=== PATIENT | female | born 1950 | race African-American/Black ===

== ENCOUNTER 2016-05-24 07:12 | Day surgery (SDC) | payer OTHER ==
[2016-05-21 13:41] VITALS: BMI 47.0
[2016-05-24] MEDS ORDERED: PROPOFOL 20 ML ONE (07:45)
[2016-05-24] MEDS ORDERED: LIDOCAINE HCL/PF 1% SDV 5ML VIAL ONE (07:45)
[2016-05-24 09:03] VITALS: TEMP 98.2
[2016-05-24 11:50] VITALS: BP 139/66; PULSE 53
== END 2016-05-24 09:40 | disposition home or self-care (01) ==
LOC: JASU-ENDO 07:12
PROVIDERS: ATTEND Internal Medicine Gastroenterology
PROC: 0DJ08ZZ Inspection of Upper Intestinal Tract, Via Natural or Artificial Opening Endoscopic (ICD-10-PCS; principal; 2016-05-24 08:00)
DX: K21.9 Gastro-esophageal reflux disease without esophagitis (principal); K44.9 Diaphragmatic hernia without obstruction or gangrene

== ENCOUNTER 2016-07-20 05:33 | Emergency (ER) | payer OTHER ==
[2016-07-20 06:28] VITALS: BP 156/93; PULSE 71; TEMP 98.3; BMI 45.6
[2016-07-20] MEDS ORDERED: PENICILLIN V POTASSIUM 500 MG TABLET PO ONE (06:51)
--- NOTE | 2016-07-20 06:51 | PDOC ---
History of Present Illness - General History Source: Patient <Chino Fan - Last Filed: 07/20/16 06:52> - General History Source: Patient Exam Limitations: No Limitations - History of Present Illness Initial Comments: 07/20/16 06:58 The patient is a 65 year old female with significant past medical history of hypertension, hyperlipidemia, CAD s/p stent (09/2014), and diabetes who presents to the ED with 2 episodes of bleeding from the mouth. Patient first noted bleeding from the mouth on Tuesday and the second episode early this morning. Patient states taking a baby aspirin daily. Denies trauma to the area. Denies smoking. The patient denies fever, chills, cough, SOB, chest pain, and palpitations. The patient denies abdominal pain, nausea, vomiting, and diarrhea. Allergies: NKDA Social History: Denies alcohol, tobacco, or drug use. Past Surgical History: s/p cardiac stent, right knee partial replacement PCP: Dr. Mile Pan Cardio: Dr. Jaycob Werner <Jenae Rehman - Last Filed: 07/20/16 06:59> - General Stated Complaint: BLEEDING GUMS Time Seen by Provider: 07/20/16 06:51 Past History - Past Medical History Anemia: Yes ( A CHILD) Asthma: Yes (NO RECENT ATTACK) Cancer: No Cardiac Disorders: Yes (CORONARY ARTERIOSCLEROSIS) CVA: No COPD: No CHF: No Dementia: No Diabetes: Yes (NIDDM) GI Disorders: Yes (GERD,H/O ADENOMATOUS POLYP OF COLON) Disorders: No HTN: Yes Hypercholesterolemia: Yes Liver Disease: No Suicide Attempt (Hx): No Seizures: No Thyroid Disease: Yes (HYPOTHYROIDISM) - Surgical History Abdominal Surgery: No Appendectomy: No Cardiac Surgery: Yes (STENT PLACED SEPTEMBER 2014) Cholecystectomy: No Lung Surgery: No Neurologic Surgery: No Orthopedic Surgery: Yes (LT KNEE REPLACEMENT) - Psycho/Social/Smoking Cessation Hx Anxiety: No Suicidal Ideation: No Smoking Status: No Smoking History: Never smoked Have you smoked in the past 12 months: No Number of Cigarettes Smoked Daily: 0 If you are a former smoker, when did you quit?: 40YRS Information on smoking cessation initiated: No Hx Alcohol Use: No Drug/Substance Use Hx: No Substance Use Type: None Hx Substance Use Treatment: No <Chino Fan - Last Filed: 07/20/16 06:52> <Jenae Rehman - Last Filed: 07/20/16 06:59> - Past Medical History Allergies/Adverse Reactions: Allergies Allergy/AdvReac Type Severity Reaction Status Date / Time No Known Drug Allergies Allergy Verified 07/20/16 06:09 Home Medications: Ambulatory Orders Lisinopril [Prinivil -] 40 mg PO DAILY #0 tablet 05/26/13 Montelukast Na [Singulair -] 10 mg PO HS #0 tablet 05/26/13 Omeprazole [Prilosec (RX)] 40 mg PO DAILY #0 capsule.dr 05/26/13 Aspirin Coated [Ecotrin -] 81 mg PO DAILY tablet.ec 10/18/14 Clopidogrel Bisulfate [Plavix -] 75 mg PO DAILY 03/06/15 Nitroglycerin Sublingual [Nitrostat -] 0.4 mg SL Q5M PRN #30 tab 03/07/15 Simvastatin [Zocor -] 20 mg PO HS 03/07/15 Metoprolol Succinate [Toprol XL -] 50 mg PO DAILY 09/03/15 Levothyroxine [Synthroid -] 150 mcg PO DAILY #30 tablet 03/20/16 Albuterol Sulfate Inhaler - [Ventolin Hfa Inhaler -] 1 - 2 inh PO QID PRN Gabapentin 100 mg PO BID 05/21/16 Isosorbide Mononitrate [Imdur -] 60 mg PO DAILY 05/21/16 Metformin HCl [Glucophage -] 500 mg PO DAILY 05/21/16 Penicillin V Potassium [Pen Vee K -] 500 mg PO TID #30 tablet 07/20/16 Review of Systems - Review of Systems Able to Perform ROS?: Yes Comments:: 07/20/16 06:59 CONSTITUTIONAL: Absent: fever, no chills, no fatigue EYES: Absent: visual changes ENT: +bleeding from the mouth Absent: ear pain, no sore throat CARDIOVASCULAR: Absent: chest pain, no palpitations RESPIRATORY: Absent: cough, no SOB GI: Absent: abdominal pain, no nausea, no vomiting, no constipation, no diarrhea GENITOURINARY: Absent: dysuria, no frequency, no hematuria MUSKULOSKELETAL: Absent: back pain, no arthralgia, no myalgia SKIN: Absent: rash NEURO: Absent: headache <Jenae Rehman - Last Filed: 07/20/16 06:59> *Physical Exam - Vital Signs Last Vital Signs Temp Pulse Resp BP Pulse Ox 98.3 F 71 20 156/93 100 07/20/16 06:07 07/20/16 06:07 07/20/16 06:07 07/20/16 06:07 07/20/16 06:07 <Chino Fan - Last Filed: 07/20/16 06:52> - Vital Signs Last Vital Signs Temp Pulse Resp BP Pulse Ox 98.3 F 71 20 156/93 100 07/20/16 06:07 07/20/16 06:07 07/20/16 06:07 07/20/16 06:07 07/20/16 06:07 - Physical Exam Comments: 07/20/16 06:59 GENERAL: Well-appearing, well-nourished. No apparent distress. HEENT: Normocephalic, atraumatic. PERRL, EOM intact. Infection of the first molar with clot in place. CARDIOVASCULAR: Normal S1, S2. Regular rate and rhythm. PULMONARY: Clear to auscultation bilaterally. ABDOMEN: Soft, non-distended, non-tender. EXTREMITIES: Normal ROM in all four extremities. No gross deformities. SKIN: Warm, dry. No rash NEUROLOGICAL: No focal neurological deficits. <Jenae Rehman - Last Filed: 07/20/16 06:59> Medical Decision Making - Medical Decision Making 07/20/16 06:54 Dr. Fan: The scribe's documentation has been prepared under my direction and personally reviewed by me in its entirery. I confirm that the note above accurately reflects all work, treatment, procedures, and medical decision making performed by me. <Chino Fan - Last Filed: 07/20/16 06:52> *DC/Admit/Observation/Transfer - Discharge Dispostion Admit: No <Chino Fan - Last Filed: 07/20/16 06:52> - Attestations Scribe Attestion: 07/20/16 06:59 Documentation prepared by Jenae Rehman, acting as special forces medical sergeant for Chino Fan MD <Jenae Rehman - Last Filed: 07/20/16 06:59> Diagnosis at time of Disposition: Dental caries - Discharge Dispostion Disposition: HOME Condition at time of disposition: Stable - Prescriptions Prescriptions: Penicillin V Potassium [Pen Vee K -] 500 mg PO TID #30 tablet - Referrals Referrals: Jay Pan [Primary Care Provider] - - Patient Instructions Printed Discharge Instructions: DI for Tooth Decay Additional Instructions: take medication as directed. use warm salt water to maintain tooth clean. Follow up with your dentist
== END 2016-07-20 07:07 | disposition home or self-care (01) ==
LOC: JER 05:33
DX: K02.9 Dental caries, unspecified (principal); I25.10 Atherosclerotic heart disease of native coronary artery without angina pectoris; I10 Essential (primary) hypertension; Z95.5 Presence of coronary angioplasty implant and graft; E78.00 Pure hypercholesterolemia, unspecified; E03.9 Hypothyroidism, unspecified
CPT/HCPCS: 99281-25

== ENCOUNTER 2017-01-18 12:06 | Observation (INO) | payer OTHER ==
[2017-01-18 12:20] VITALS: BMI 44.1
--- NOTE | 2017-01-18 12:47 | PDOC ---
History of Present Illness - General History Source: Patient Exam Limitations: No Limitations - History of Present Illness Initial Comments: 01/18/17 13:55 66 y/o F with a PMHx of CAD, NIDDM, GERD, HTN, HLD, hypothyroidism, polyps presents to the ED with sharp, sudden onset left sided chest pain today while at a . Patient reports the pain radiated to her back and to her left arm. Patient reports associated intermittent positional SOB. Patient states the SOB is better with sitting up and worsened while lying back. Patient reports current mild chest pain. Patient also reports that her last BM was on Tuesday. Denies fever, chills. Denies N/V/D. Denies headache, dizziness. <Shelley Lua - Last Filed: 01/18/17 13:57> <Maia Robison - Last Filed: 01/21/17 09:53> - General Chief Complaint: Chest Pain Stated Complaint: CHEST PAIN Time Seen by Provider: 01/18/17 12:30 Past History <Shelley Lua - Last Filed: 01/18/17 13:57> - Past Medical History Anemia: Yes ( A CHILD) Asthma: Yes (NO RECENT ATTACK) Cancer: No Cardiac Disorders: Yes (CORONARY ARTERIOSCLEROSIS) CVA: No COPD: No CHF: No Dementia: No Diabetes: Yes (NIDDM) GI Disorders: Yes (GERD,H/O ADENOMATOUS POLYP OF COLON) Disorders: No HTN: Yes Hypercholesterolemia: Yes Liver Disease: No Seizures: No Thyroid Disease: Yes (HYPOTHYROIDISM) - Surgical History Abdominal Surgery: No Appendectomy: No Cardiac Surgery: Yes (STENT PLACED SEPTEMBER 2014) Cholecystectomy: No Lung Surgery: No Neurologic Surgery: No Orthopedic Surgery: Yes (LT KNEE REPLACEMENT) - Suicide/Smoking/Psychosocial Hx Smoking Status: No Smoking History: Never smoked Have you smoked in the past 12 months: No Number of Cigarettes Smoked Daily: 0 If you are a former smoker, when did you quit?: 40YRS Hx Alcohol Use: No Drug/Substance Use Hx: No Substance Use Type: None Hx Substance Use Treatment: No <Maia Robison - Last Filed: 01/21/17 09:53> - Past Medical History Allergies/Adverse Reactions: Allergies Allergy/AdvReac Type Severity Reaction Status Date / Time No Known Drug Allergies Allergy Verified 01/18/17 12:16 Home Medications: Ambulatory Orders Lisinopril [Prinivil -] 40 mg PO DAILY #0 tablet 05/26/13 Montelukast Na [Singulair -] 10 mg PO HS #0 tablet 05/26/13 Omeprazole [Prilosec (RX)] 40 mg PO DAILY #0 capsule. 05/26/13 Aspirin Coated [Ecotrin -] 81 mg PO DAILY tablet.ec 10/18/14 Clopidogrel Bisulfate [Plavix -] 75 mg PO DAILY 03/06/15 Nitroglycerin Sublingual [Nitrostat -] 0.4 mg SL Q5M PRN #30 tab 03/07/15 Simvastatin [Zocor -] 20 mg PO HS 03/07/15 Metoprolol Succinate [Toprol XL -] 50 mg PO DAILY 09/03/15 Levothyroxine [Synthroid -] 150 mcg PO DAILY #30 tablet 03/20/16 Albuterol Sulfate Inhaler - [Ventolin HFA Inhaler -] 1 - 2 inh PO QID PRN Gabapentin 300 mg PO BID 05/21/16 Isosorbide Mononitrate [Imdur -] 60 mg PO DAILY 05/21/16 Ranolazine [Ranexa] 500 mg PO BID 01/18/17 Heparin - 5,000 unit SQ TID vial 01/20/17 Insulin Sliding Scale [Novolog Vial Sliding Scale -] 1 vial SQ ACHS units 01/20 Nitroglycerin Patch [Nitro-Dur Patch -] 0.4 mg TD DAILY #30 tab 01/20/17 Review of Systems - Review of Systems Able to Perform ROS?: Yes Comments:: 01/18/17 13:55 GENERAL/CONSTITUTIONAL: No fever or chills. No weakness. HEAD, EYES, EARS, NOSE AND THROAT: No change in vision. No ear pain or discharge. No sore throat. CARDIOVASCULAR: (+) chest pain, shortness of breath. RESPIRATORY: No cough, wheezing, or hemoptysis. GASTROINTESTINAL: No nausea, vomiting, diarrhea or constipation. GENITOURINARY: No dysuria, frequency, or change in urination. MUSCULOSKELETAL: (+) left arm pain, back pain. No neck pain. SKIN: No rash NEUROLOGIC: No headache, vertigo, loss of consciousness, or change in strength/ sensation. ENDOCRINE: No increased thirst. No abnormal weight change. HEMATOLOGIC/LYMPHATIC: No anemia, easy bleeding, or history of blood clots. ALLERGIC/IMMUNOLOGIC: No hives or skin allergy. <Leann Luaobjenae Alonso - Last Filed: 01/18/17 13:57> *Physical Exam - Vital Signs Last Vital Signs Temp Pulse Resp BP Pulse Ox 97.4 F L 64 24 145/65 100 01/18/17 12:16 01/18/17 12:16 01/18/17 12:16 01/18/17 12:16 01/18/17 12:16 - Physical Exam Comments: 01/18/17 13:55 GENERAL: Awake, alert, and fully oriented, in no acute distress. Obese. HEAD: No signs of trauma EYES: PERRLA, EOMI, sclera anicteric, conjunctiva clear ENT: Auricles normal inspection, hearing grossly normal, nares patent, oropharynx clear without exudates. Moist mucosa NECK: Normal ROM, supple, no lymphadenopathy, JVD, or masses LUNGS: Breath sounds equal, clear to auscultation bilaterally. No wheezes, and no crackles HEART: Regular rate and rhythm, normal S1 and S2, no murmurs, rubs or gallops ABDOMEN: Soft, nontender, normoactive bowel sounds. No guarding, no rebound. No masses EXTREMITIES: Normal range of motion, no edema. No clubbing or cyanosis. No cords, erythema, or tenderness NEUROLOGICAL: Cranial nerves II through XII grossly intact. Normal speech, normal gait SKIN: Warm, Dry, normal turgor, no rashes or lesions noted. <Leann Lualei Alonso - Last Filed: 01/18/17 13:57> - Vital Signs Last Vital Signs Temp Pulse Resp BP Pulse Ox 97.4 F L 64 24 145/65 100 01/18/17 12:16 01/18/17 12:16 01/18/17 12:16 01/18/17 12:16 01/18/17 12:16 <Maia Robison - Last Filed: 01/21/17 09:53> Heart Score/ECG Review - History History: Highly suspicious - Electrocardiogram EKG: Non specific repolarization disturbance - Age Age: 45-65 - Risk Factors Risk Factors Heart Score: Yes Hx Hypercholesterolemia, Yes Hx Hypertension, Yes Hx Diabetes, Yes Hx Obesity Based on the list above the patient has:: >/=3 risk factors or Hx atherosclerotic disease - Troponin Troponin: </= normal limit - Score Heart Score - Total: 6 <Maia Robison - Last Filed: 01/21/17 09:53> ED Treatment Course - LABORATORY CBC & Chemistry Diagram: 01/18/17 12:32 01/18/17 12:32 - ADDITIONAL ORDERS Additional order review: Laboratory Results 01/18/17 01/18/17 12:32 12:32 PT with INR 12.30 H INR 1.12 Sodium 143 Potassium 3.8 Chloride 107 Carbon Dioxide 27 Anion Gap 9 BUN 15 D Creatinine 0.8 Creat Clearance w eGFR > 60 Random Glucose 104 Calcium 9.5 Magnesium 2.0 Total Bilirubin 0.3 D AST 11 L ALT 23 Alkaline Phosphatase 108 Creatine Kinase 165 Troponin I 0.03 Total Protein 6.9 Albumin 3.9 01/18/17 12:32 RBC 4.16 MCV 84.1 MCHC 31.8 L RDW 15.3 MPV 7.8 Neutrophils % 62.2 Lymphocytes % 30.3 Monocytes % 5.5 Eosinophils % 1.7 Basophils % 0.3 - RADIOLOGY Radiograph Interpretation: 01/18/17 13:43 Chest X-Ray Reported by Dr. Lokesh Saldana Impression: Mild cardiomegaly. <Shelley Lua - Last Filed: 01/18/17 13:57> - LABORATORY CBC & Chemistry Diagram: 01/20/17 05:47 01/20/17 05:47 - RADIOLOGY Radiology Studies Ordered: Category Date Time Status CHEST X-RAY PORTABLE* [RAD] Stat Radiology 01/18/17 12:31 Ordered <Maia Robison - Last Filed: 01/21/17 09:53> Medical Decision Making - Medical Decision Making 01/18/17 13:[address] Holden overhead. <Shelley Lua - Last Filed: 01/18/17 13:57> - Medical Decision Making Pt with prior cardiac history presented with chest pain. Case discussed with Dr. Holden, covering Dr. Werner. Initial plan was for 2 enzyme rule-out , but after discussing with her at bedside and discussing with interventional cardio at [facility], opted for admission. <Maia Robison - Last Filed: 01/21/17 09:53> *DC/Admit/Observation/Transfer - Attestations Scribe Attestion: 01/18/17 13:43 Documentation prepared by Shelley Lua, acting as electromedical equipment technician for Maia Robison MD. <Shelley Lua - Last Filed: 01/18/17 13:57> - Discharge Dispostion Admit: Yes <Maia Robison - Last Filed: 01/21/17 09:53> Diagnosis at time of Disposition: Chest pain Qualifiers: Chest pain type: unspecified Qualified Code(s): R07.9 - Chest pain, unspecified - Discharge Dispostion Disposition: TRANSFER ACUTE CARE/OTHER HOSP Condition at time of disposition: Stable - Referrals
[2017-01-18 12:51] LABS: BASOPHIL 0.3 % (0-2.0); EOSINOPHIL 1.7 % (0-4.5); MCH 26.8 pg (25.7-33.7); MCHC 31.8 g/dl (32.0-36.0); MEAN CELL VOLUME 84.1 fl (80-96); MEAN PLT VOLUME 7.8 fl (7.5-11.1); NEUTROPHILS 62.2 % (42.8-82.8); PLATELET COUNT 321 K/MM3 (134-434); RDW 15.3 % (11.6-15.6); WHITE BLOOD COUNT 7.4 K/mm3 (4.0-10.0)
[2017-01-18 13:09] LABS: INR 1.12 (0.82-1.09); PROTHROMBIN TIME (PATIENT) 12.3 SEC (9.98-11.88)
[2017-01-18 13:11] LABS: ALBUMIN 3.9 g/dl (3.4-5.0); ANION GAP 9 (8-16); CALCIUM 9.5 mg/dL (8.5-10.1); CO2 27 mmol/L (21-32); CREATININE 0.8 mg/dL (0.55-1.02); GLUCOSE,RANDOM 104 mg/dL (74-106); SGOT/AST 11 U/L (15-37); SGPT/ALT 23 U/L (12-78)
[2017-01-18 13:15] LABS: ALK PHOS 108 U/L (45-117); BILIRUBIN,TOTAL 0.3 mg/dL (0.2-1.0); CPK 165 IU/L (26-192); TOT PROT 6.9 g/dl (6.4-8.2); TROPONIN I 0.03 ng/ml (0.00-0.05)
[2017-01-18] MEDS ORDERED: ACETAMINOPHEN 325 MG TABLET (FP) PO ONE (13:56)
[2017-01-18] MEDS ORDERED: NITROGLYCERIN 2% OINTMENT - 1GM PACKET TD ONE ×2 (13:56→14:02)
[2017-01-18] MEDS ORDERED: ACETAMINOPHEN 325 MG TABLET (FP) ONE (14:00)
[2017-01-18 18:43] LABS: TROPONIN I 0.03 ng/ml (0.00-0.05)
--- NOTE | 2017-01-18 19:11 | PN ---
Teaching Attending Note Name of Resident: Yoel Gutierrez ATTENDING PHYSICIAN STATEMENT I saw and evaluated the patient. I reviewed the resident's note and discussed the case with the resident. I agree with the resident's findings and plan as documented. SUBJECTIVE: 66 yo F with pmhx of CAD (with revision 05/17), NIDDM, GERD, HTN, HLD, hypothryiodism, and polyps who presents with left sided chest pain, while at a . States pain went to her left arm. States pain is much improved now. No sob. States she was at a when the chest pain happened OBJECTIVE: Physical: VS: Vital Signs Period Temp Pulse Resp BP Sys/Peñaloza Pulse Ox Last 24 Hr 97.4 F 57-64 20-24 118-145/61-80 97-100 GEN: NAD, resting in bed HEENT: NCAT, PERRL, throat without erythema or exudates CARD: RRR S1, S2 RESP: Bilateral expiratory wheezing all shea ABD: BSX4, NTD to palpation EXT: - C/C/E CBCD WBC 7.4 K/mm3 (4.0-10.0) 01/18/17 12:32 RBC 4.16 M/mm3 (3.60-5.2) 01/18/17 12:32 Hgb 11.1 GM/dL (10.7-15.3) 01/18/17 12:32 Hct 35.0 % (32.4-45.2) 01/18/17 12:32 MCV 84.1 fl (80-96) 01/18/17 12:32 MCHC 31.8 g/dl (32.0-36.0) L 01/18/17 12:32 RDW 15.3 % (11.6-15.6) 01/18/17 12:32 Plt Count 321 K/MM3 (134-434) 01/18/17 12:32 MPV 7.8 fl (7.5-11.1) 01/18/17 12:32 CMP Sodium 143 mmol/L (136-145) 01/18/17 12:32 Potassium 3.8 mmol/L (3.5-5.1) 01/18/17 12:32 Chloride 107 mmol/L (98-107) 01/18/17 12:32 Carbon Dioxide 27 mmol/L (21-32) 01/18/17 12:32 Anion Gap 9 (8-16) 01/18/17 12:32 BUN 15 mg/dL (7-18) D 01/18/17 12:32 Creatinine 0.8 mg/dL (0.55-1.02) 01/18/17 12:32 Creat Clearance w eGFR > 60 (>60) 01/18/17 12:32 Random Glucose 104 mg/dL (74-106) 01/18/17 12:32 Calcium 9.5 mg/dL (8.5-10.1) 01/18/17 12:32 Total Bilirubin 0.3 mg/dL (0.2-1.0) D 01/18/17 12:32 AST 11 U/L (15-37) L 01/18/17 12:32 ALT 23 U/L (12-78) 01/18/17 12:32 Alkaline Phosphatase 108 U/L (45-117) 01/18/17 12:32 Total Protein 6.9 g/dl (6.4-8.2) 01/18/17 12:32 Albumin 3.9 g/dl (3.4-5.0) 01/18/17 12:32 CARDIAC ENZYMES Creatine Kinase 152 IU/L (26-192) 01/18/17 17:44 Troponin I 0.03 ng/ml (0.00-0.05) 01/18/17 17:44 Home Medications Medication Instructions Recorded Lisinopril [Prinivil -] 40 mg PO DAILY #0 tablet 05/26/13 Montelukast Na [Singulair -] 10 mg PO HS #0 tablet 05/26/13 Omeprazole [Prilosec (RX)] 40 mg PO DAILY #0 capsule. 05/26/13 Aspirin Coated [Ecotrin -] 81 mg PO DAILY tablet.ec 10/18/14 Clopidogrel Bisulfate [Plavix -] 75 mg PO DAILY 03/06/15 Nitroglycerin Sublingual 0.4 mg SL Q5M PRN #30 tab 03/07/15 [Nitrostat -] Simvastatin [Zocor -] 20 mg PO HS 03/07/15 Metoprolol Succinate [Toprol XL -] 50 mg PO DAILY 09/03/15 Levothyroxine [Synthroid -] 150 mcg PO DAILY #30 tablet 03/20/16 Albuterol Sulfate Inhaler - 1 - 2 inh PO QID PRN 05/21/16 [Ventolin Hfa Inhaler -] Gabapentin 300 mg PO BID 05/21/16 Isosorbide Mononitrate [Imdur -] 60 mg PO DAILY 05/21/16 Metformin HCl [Glucophage -] 500 mg PO DAILY 05/21/16 CXR- Mild Cardiomegaly ASSESSMENT AND PLAN: 66 yo F with pmhx of CAD (s/p Stent placement), NIDDM, GERD, HTN, HLD, hypothyriodism who presents with chest pain 1.) Chest Pain - RO ACS - ASA/Plavix - HEART 6 - Statin - BB, 02 2L NC - Nitro/Morphine prn pain - Trend trop/ekg - Cardio consulted recc. transfer to [place] [facility] in Am 2.) HTN - C/W home meds 3.) NIDDM - FS - RAISS 4.) Hypothyriodism - Chk. TSH, FT4 - C/W Levothyroxine 5.) GERD - C/W Home meds 6.) HLD - CHk. Lipid panel - C/W statin 7.) Dvt Ppx - Low risk - Heparin [address] in OBS-Tele for transfer to [place] [facility] in am
--- NOTE | 2017-01-18 20:22 | EKG ---
Test Reason : Blood Pressure : / mmHG Vent. Rate : 060 BPM Atrial Rate : 060 BPM P-R Int : 164 ms QRS Dur : 076 ms QT Int : 434 ms P-R-T Axes : 043 017 012 degrees QTc Int : 434 ms NORMAL SINUS RHYTHM NONSPECIFIC T WAVE ABNORMALITY ABNORMAL ECG WHEN COMPARED WITH ECG OF 20-MAR-2016 09:30, ABERRANT CONDUCTION IS NO LONGER PRESENT NONSPECIFIC T WAVE ABNORMALITY NOW EVIDENT IN ANTEROLATERAL LEADS CLINICAL CORRELATION IS RECOMMENDED Confirmed by LUZ ARNOLD MD ([id number]) on 01/18/2017 8:22:28 PM Referred By: Confirmed By:LUZ ARNOLD MD
[2017-01-18] MEDS ORDERED: morphine CARPU-JECT 2 MG/1 ML DISP.SYRIN IVPUSH PRN (21:02)
--- NOTE | 2017-01-18 21:04 | HP ---
CHIEF COMPLAINT: " Left sided chest pain" PCP: Dr. Pan Manager Etl: Dr. Isabel HISTORY OF PRESENT ILLNESS: Patient is a 64 year old female with significant Past Medical History of HTN/HLD/CAD (s/p stent in September 2014, revision May,), Diabetes Mellitus, Hypothyroidism presented to the ED with the chief complaint of left sided chest pain today. As per the patient, she was at a when the chest pain started suddenly, located on the left side, pressure type, 10/10 in intensity, non radiating, associated with SOB but not associated with nausea or vomiting. She called EMS and came to the ED for further evaluation. Patient mentions she recently had a cardiac workup done (Carotid doppler, echo and one other test that she doesn't know) at Dr. Isabel's office, still has one test pending that is scheduled to be done on 02/07/17. She says she had a stent placed 2 years ago in [place]. Denies palpitation, cough, fever, chills, rigors or sweating. Bowel/Bladder habit normal. Sleep/Appetite normal. The day team MAR signed out mentioning that ED had discussed case with Dr. Thornton and plan is to transfer her to [place] in the morning for possible cath. Placed call to Dr. Isabel if we could transfer the patient from the ER to [place] today, but didn't get a call back, hence will place the patient under observation in Tele. ER course was notable for: (1) Afebrile, hemodynamically stable, Troponin x 1 negative (2) EKG- No significant ST and T wave changes (3) Nitroglycerin 2 % Recent Travel: None PAST MEDICAL HISTORY: Hypertension, Hyperlipidemia, CAD (s/p stent in September 2014 , revision this May), Diabetes Mellitus PAST SURGICAL HISTORY: Right Knee Partial replacement Social History: Smoking: Denies Alcohol: Denies Drugs: Denies Family History: Unknown Allergies No Known Drug Allergies Allergy (Verified 01/18/17 12:16) HOME MEDICATIONS: Home Medications Medication Instructions Recorded Lisinopril [Prinivil -] 40 mg PO DAILY #0 tablet 05/26/13 Montelukast Na [Singulair -] 10 mg PO HS #0 tablet 05/26/13 Omeprazole [Prilosec (RX)] 40 mg PO DAILY #0 capsule.dr 05/26/13 Aspirin Coated [Ecotrin -] 81 mg PO DAILY tablet.ec 10/18/14 Clopidogrel Bisulfate [Plavix -] 75 mg PO DAILY 03/06/15 Nitroglycerin Sublingual 0.4 mg SL Q5M PRN #30 tab 03/07/15 [Nitrostat -] Simvastatin [Zocor -] 20 mg PO HS 03/07/15 Metoprolol Succinate [Toprol XL -] 50 mg PO DAILY 09/03/15 Levothyroxine [Synthroid -] 150 mcg PO DAILY #30 tablet 03/20/16 Albuterol Sulfate Inhaler - 1 - 2 inh PO QID PRN 05/21/16 [Ventolin Hfa Inhaler -] Gabapentin 300 mg PO BID 05/21/16 Isosorbide Mononitrate [Imdur -] 60 mg PO DAILY 05/21/16 Metformin HCl [Glucophage -] 500 mg PO DAILY 05/21/16 Ranolazine [Ranexa] 500 mg PO BID 01/18/17 REVIEW OF SYSTEMS CONSTITUTIONAL: Absent: fever, chills, diaphoresis, generalized weakness, malaise, loss of appetite, weight change HEENT: Absent: rhinorrhea, nasal congestion, throat pain, throat swelling, difficulty swallowing, mouth swelling, ear pain, eye pain, visual changes CARDIOVASCULAR: Present: chest pain Absent: , syncope, palpitations, irregular heart rate, lightheadedness, peripheral edema RESPIRATORY: Absent: cough, shortness of breath, dyspnea with exertion, orthopnea, wheezing, stridor, hemoptysis GASTROINTESTINAL: Absent: abdominal pain, abdominal distension, nausea, vomiting, diarrhea, constipation, melena, hematochezia GENITOURINARY: Absent: dysuria, frequency, urgency, hesitancy, hematuria, flank pain, genital pain MUSCULOSKELETAL: Absent: myalgia, arthralgia, joint swelling, back pain, neck pain SKIN: Absent: rash, itching, pallor HEMATOLOGIC/IMMUNOLOGIC: Absent: easy bleeding, easy bruising, lymphadenopathy, frequent infections ENDOCRINE: Absent: unexplained weight gain, unexplained weight loss, heat intolerance, cold intolerance NEUROLOGIC: Absent: headache, focal weakness or paresthesias, dizziness, unsteady gait, seizure, mental status changes, bladder or bowel incontinence PSYCHIATRIC: Absent: anxiety, depression, suicidal or homicidal ideation, hallucinations. PHYSICAL EXAMINATION Vital Signs - 24 hr 01/18/17 20:09 O2 Sat by Pulse 98 Oximetry (%) GENERAL: Patient sitting comfortably in bed, Awake, alert, and fully oriented, in mild chest pain. HEAD: Normal with no signs of trauma. EYES: EOM intact, no pallor or icterus. EARS, NOSE, THROAT: Ears normal. Moist mucous membranes. NECK: Supple. LUNGS: B/L Breath sounds equal, clear to auscultation bilaterally. No wheezes, and no crackles. HEART: Regular rate and rhythm, normal S1 and S2 with soft systolic murmur. ABDOMEN: Soft, nontender, not distended, normoactive bowel sounds, no guarding, no rebound, no masses. No hepatomegaly or splenomegaly. MUSCULOSKELETAL: Normal range of motion at all joints. No bony deformities or tenderness. No CVA tenderness. UPPER EXTREMITIES: 2+ pulses, warm, well-perfused. No cyanosis. No clubbing. No peripheral edema. LOWER EXTREMITIES: 2+ pulses, warm, well-perfused. No calf tenderness. No peripheral edema. NEUROLOGICAL: No facial droop, EOM intact. Normal speech. Gait not observed. PSYCHIATRIC: Cooperative. Good eye contact. Appropriate mood and affect. SKIN: Warm, dry, normal turgor, no rashes or lesions noted, normal capillary refill. ASSESSMENT/PLAN: Patient is a 64 year old female with significant Past Medical History of HTN/HLD/CAD (s/p stent in September 2014, revision May,), Diabetes Mellitus, Asthma, Hypothyroidism presented to the ED with the chief complaint of left sided chest pain today. # Chest pain-R/O ACS Presented with sudden onset of left sided chest pain while at , 10/10 in intensity, pressure type, associated with SOB. On arrival, she was afebrile, hemodynamically stable EKG- No significant ST and T wave changes In the ED, she received Nitroglycerin and pain improved Placed in observation in Tele Continuous cardiac monitoring Aspirin 162mg given stat and to continue Aspirin 81mg Daily Atorvastatin 10mg PO HS ED physician spoke with Dr. Thornton and plan is to transfer her to [place] in the morning for possible cath Troponin x 1 negative ----> Repeat troponin at midnight -----> Repeat at 6am Continue Aspirin 81mg NPO after midnight Gentle hydration # Hypertension-controlled Continue Lisinopril 40mg PO Daily, Ranolazine 500mg PO BID; Metoprolol 50mg PO daily # Hyperlipidemia Lipid panel ordered for am Continue Atorvastain 10mg PO HS # Asthma not in exacerbation Continue Montelukast 10mg PO HS # Hypothyroidism TSH in am Continue Levothyroxine 150 mcg PO Daily # Diabetes Mellitus A1c pending Insulin sliding scale, BGM Watch for hypoglycemic episodes Diabetic diet until midnight # FEN IV NS @ 75mls/hr after midnight Electrolyes WNL, to be repeated tomorrow Diabetic diet now and NPO after midnight for possible cath # Prophylaxis For DVT: Heparin 5000 IU sq TID For GI: On Protonix # Code Status: Full Code # Dispo: Placed in observation in [facility], transfer to [place] in the morning for possible cath. Illness, Investigation and Plan of care explained to the patient. She verbalized understanding. Case seen and discussed with Dr. Alcala. Visit type - Emergency Visit Emergency Visit: Yes ED Registration Date: 01/18/17 Care time: The patient presented to the Emergency Department on the above date and was hospitalized for further evaluation of their emergent condition. - New Patient This patient is new to me today: Yes Date on this admission: 01/18/17 - Critical Care Critical Care patient: No
[2017-01-18] MEDS ORDERED: ASPIRIN COATED 81 MG TABLET.EC PO ONE (21:48)
--- NOTE | 2017-01-18 21:48 | CON.CARD ---
Consult Consult Specialty:: cardiology Reason for Consultation:: chest pain; hx CAD-->PCI - History of Present Illness Chief Complaint: A&Ox3; son is at bedside. No chest pain or palpitations presently; had a bout of dizziness earlier. History of Present Illness: 66 y/o black woman with a PMHx of CAD-->PCI 2014 (non-obstructive CAD, with significant LAD lesion 08/2016 cath), NIDDM, GERD, HTN, HLD, hypothyroidism, obesity, sedentary lifestyle, polyps, now presents to the ED with sharp, sudden onset left sided chest pain today while at a . Patient reports the pain radiated to her back and to her left arm. Patient reports associated intermittent positional SOB. Patient states the SOB is better with sitting up and worsened while lying back. It lasted for a few hours, but is now absent. Patient also reports that her last BM was on Tuesday. Denies fever, chills. Denies N/V/D. Denies headache, dizziness. Pt says she does very little walking or other forms of exercise. - History Source History Provided By: Patient, Family Member, Medical Record Limitations to Obtaining History: No Limitations - Past Medical History Cardio/Vascular: Yes: CAD, HTN Pulmonary: Yes: Asthma Reproductive: Yes: Postmenopausal ...: No Psych: Yes: Anxiety Endocrine: Yes: Diabetes Mellitus, Hypothyroidism, Other (HL) - Past Surgical History Past Surgical History: Yes: Joint Replacement, Stent (coronary) - Alcohol/Substance Use Hx Alcohol Use: No History of Substance Use: reports: None - Smoking History Smoking history: Never smoked Have you smoked in the past 12 months: No Aproximately how many cigarettes per day: 0 If you are a former smoker, when did you quit?: 40YRS - Social History ADL: Independent History of Recent Travel: No Home Medications - Allergies Allergies/Adverse Reactions: Allergies Allergy/AdvReac Type Severity Reaction Status Date / Time No Known Drug Allergies Allergy Verified 01/18/17 12:16 - Home Medications Home Medications: Ambulatory Orders Lisinopril [Prinivil -] 40 mg PO DAILY #0 tablet 05/26/13 Montelukast Na [Singulair -] 10 mg PO HS #0 tablet 05/26/13 Omeprazole [Prilosec (RX)] 40 mg PO DAILY #0 capsule. 05/26/13 Aspirin Coated [Ecotrin -] 81 mg PO DAILY tablet.ec 10/18/14 Clopidogrel Bisulfate [Plavix -] 75 mg PO DAILY 03/06/15 Nitroglycerin Sublingual [Nitrostat -] 0.4 mg SL Q5M PRN #30 tab 03/07/15 Simvastatin [Zocor -] 20 mg PO HS 03/07/15 Metoprolol Succinate [Toprol XL -] 50 mg PO DAILY 09/03/15 Levothyroxine [Synthroid -] 150 mcg PO DAILY #30 tablet 03/20/16 Albuterol Sulfate Inhaler - [Ventolin Hfa Inhaler -] 1 - 2 inh PO QID PRN Gabapentin 300 mg PO BID 05/21/16 Isosorbide Mononitrate [Imdur -] 60 mg PO DAILY 05/21/16 Metformin HCl [Glucophage -] 500 mg PO DAILY 05/21/16 Ranolazine [Ranexa] 500 mg PO BID 01/18/17 Family Disease History - Family Disease History Family Disease History: Other: Mother (heart problem . unknown ) Review of Systems - Review of Systems Constitutional: reports: Weakness Eyes: reports: No Symptoms HENT: reports: No Symptoms Neck: reports: No Symptoms Cardiovascular: reports: Chest Pain, Shortness of Breath Respiratory: reports: SOB on Exertion Gastrointestinal: reports: No Symptoms Genitourinary: reports: No Symptoms Breasts: reports: No Symptoms Reported Musculoskeletal: reports: Joint Pain, Muscle Weakness Integumentary: reports: No Symptoms Neurological: reports: No Symptoms Endocrine: reports: No Symptoms Hematology/Lymphatic: reports: No Symptoms Psychiatric: reports: Anxiety - Risk Factors Known Risk Factors: Yes: Age, Hypercholesterolemia, Hypertension, Physical Inactivity, Race, Other (CAD/PCI; obesity) Vital Signs: Vital Signs Temperature 97.4 F L 01/18/17 12:16 Pulse Rate 57 L 01/18/17 18:37 Respiratory Rate 22 01/18/17 18:37 Blood Pressure 118/70 01/18/17 18:37 O2 Sat by Pulse Oximetry (%) 98 01/18/17 20:09 Constitutional: Yes: Anxious Eyes: Yes: WNL HENT: Yes: WNL Neck: Yes: WNL Respiratory: Yes: WNL Gastrointestinal: Yes: Soft, Abdomen, Obese Renal/: No: Anuria Cardiovascular: Yes: Regular Rate and Rhythm JVD: No Carotid Bruit: No PMI: Displaced Heart Sounds: Yes: S1, S2 Murmur: Yes: Systolic Murmur, Grade 2 Musculoskeletal: Yes: Joint Stiffness Extremities: Yes: WNL Edema: No Peripheral Pulses WNL: Yes Neurological: Yes: Alert, Oriented Psychiatric: Yes: Alert, Oriented - Other Data Labs, Other Data: INR, PTT INR 1.12 (0.82-1.09) 01/18/17 12:32 Imaging - Results Chest X-ray: Image Reviewed (cardiomegaly; no acute pathology) EKG: Image Reviewed (NSR; nonspecific T wave changes) Problem List - Problems (1) Hypothyroid Assessment/Plan: TSH WNL. Code(s): E03.9 - HYPOTHYROIDISM, UNSPECIFIED (2) Sedentary lifestyle Assessment/Plan: The need to increase daily exercise, once she is stable, was discussed in detail with pt and her son. Code(s): Z91.89 - OTH PERSONAL RISK FACTORS, NOT ELSEWHERE CLASSIFIED (3) Asthma Code(s): J45.909 - UNSPECIFIED ASTHMA, UNCOMPLICATED (4) GERD (gastroesophageal reflux disease) Code(s): K21.9 - GASTRO-ESOPHAGEAL REFLUX DISEASE WITHOUT ESOPHAGITIS (5) HTN (hypertension) Assessment/Plan: on lisinopril and metoprolol. Code(s): I10 - ESSENTIAL (PRIMARY) HYPERTENSION (6) History of coronary artery stent placement Code(s): Z95.5 - PRESENCE OF CORONARY ANGIOPLASTY IMPLANT AND GRAFT (7) Hyperlipidemia Assessment/Plan: on atorvastatin; keep LDL cholesterol < 70 mg/dL. Code(s): E78.5 - HYPERLIPIDEMIA, UNSPECIFIED (8) Morbidly obese Assessment/Plan: The importance of changing diet, portion control, and increasing exercise was discussed in detail. Code(s): E66.01 - MORBID (SEVERE) OBESITY DUE TO EXCESS CALORIES (9) Type 2 diabetes mellitus Code(s): E11.9 - TYPE 2 DIABETES MELLITUS WITHOUT COMPLICATIONS (10) Atypical chest pain Assessment/Plan: 1st TNI 0.03; f/u serially. EKG; telemetry. Hx coronary stent 2014; nonobstructive disease 08/2016, though with significant LAD lesion being followed closely. Code(s): R07.89 - OTHER CHEST PAIN
--- NOTE | 2017-01-18 21:49 | HP ---
CHIEF COMPLAINT: Chest Pain PCP: Dr. Pan Inspector [employer]- Dr. Werner HISTORY OF PRESENT ILLNESS: 66 y.o. F with pmh of HTN, HLD, DM, hypothyroidism, asthma, GERD, and CAD s/p stent x1 (stent placed in 2014, revision in May of 2015) presenting with chest pain. Patient states she was at a around 11 a.m. when she began have sharp, sudden severe, 10/10, left sided chest pain radiating to her back and left arm. Patient states she took nitro x2 with no relief. Her chest pain in the ED had diminshed to a 6/10. She endorses mild SOB, better when sitting up and worse when laying flat. Patient denies any N/V/D/C, HEATH, diaphoresis, dizziness, lightheadedness, abdominal pain. Per day team, case was discussed with Dr. Holden and patient is scheduled to be transferred to [place] for cardiac catheterization in the morning. ER course was notable for: (1) VS- WNL, CBC- unremarkable, CMP- unremarkable, Trops negative x2 (0.03) (2) EKG- NSR, qtc- 434, nonspecific t wave abnormality (3) CXR- mild cardiomegaly Recent Travel: denies PAST MEDICAL HISTORY: HTN, HLD, DM, hypothyroidism, asthma, GERD, and CAD s/p stent x1 PAST SURGICAL HISTORY: Left knee surgery, stent placement in 2014 with revision in May 2015 Social History: Smoking: denies, quit >40 yrs ago Alcohol: denies Drugs: denies Family History: unknown Allergies No Known Drug Allergies Allergy (Verified 01/18/17 12:16) HOME MEDICATIONS: Home Medications Medication Instructions Recorded Lisinopril [Prinivil -] 40 mg PO DAILY #0 tablet 05/26/13 Montelukast Na [Singulair -] 10 mg PO HS #0 tablet 05/26/13 Omeprazole [Prilosec (RX)] 40 mg PO DAILY #0 capsule. 05/26/13 Aspirin Coated [Ecotrin -] 81 mg PO DAILY tablet.ec 10/18/14 Clopidogrel Bisulfate [Plavix -] 75 mg PO DAILY 03/06/15 Nitroglycerin Sublingual 0.4 mg SL Q5M PRN #30 tab 03/07/15 [Nitrostat -] Simvastatin [Zocor -] 20 mg PO HS 03/07/15 Metoprolol Succinate [Toprol XL -] 50 mg PO DAILY 09/03/15 Levothyroxine [Synthroid -] 150 mcg PO DAILY #30 tablet 03/20/16 Albuterol Sulfate Inhaler - 1 - 2 inh PO QID PRN 05/21/16 [Ventolin Hfa Inhaler -] Gabapentin 300 mg PO BID 05/21/16 Isosorbide Mononitrate [Imdur -] 60 mg PO DAILY 05/21/16 Metformin HCl [Glucophage -] 500 mg PO DAILY 05/21/16 Ranolazine [Ranexa] 500 mg PO BID 01/18/17 REVIEW OF SYSTEMS CONSTITUTIONAL: Absent: fever, chills, diaphoresis, generalized weakness, malaise, loss of appetite, weight change HEENT: Absent: rhinorrhea, nasal congestion, throat pain, throat swelling, difficulty swallowing, mouth swelling, ear pain, eye pain, visual changes CARDIOVASCULAR: Absent: chest pain, syncope, palpitations, irregular heart rate, lightheadedness , peripheral edema RESPIRATORY: Absent: cough, shortness of breath, dyspnea with exertion, orthopnea, wheezing, stridor, hemoptysis GASTROINTESTINAL: Absent: abdominal pain, abdominal distension, nausea, vomiting, diarrhea, constipation, melena, hematochezia GENITOURINARY: Absent: dysuria, frequency, urgency, hesitancy, hematuria, flank pain, genital pain MUSCULOSKELETAL: Absent: myalgia, arthralgia, joint swelling, back pain, neck pain, left arm pain SKIN: Absent: rash, itching, pallor HEMATOLOGIC/IMMUNOLOGIC: Absent: easy bleeding, easy bruising, lymphadenopathy, frequent infections ENDOCRINE: Absent: unexplained weight gain, unexplained weight loss, heat intolerance, cold intolerance NEUROLOGIC: Absent: headache, focal weakness or paresthesias, dizziness, unsteady gait, seizure, mental status changes, bladder or bowel incontinence PSYCHIATRIC: Absent: anxiety, depression, suicidal or homicidal ideation, hallucinations. PHYSICAL EXAMINATION Vital Signs - 24 hr 01/18/17 20:09 O2 Sat by Pulse 98 Oximetry (%) GENERAL: Awake, alert, and fully oriented, in no acute distress. HEAD: Normal with no signs of trauma. EYES: Extraocular movements intact, sclera anicteric, conjunctiva clear. No lid lag. EARS, NOSE, THROAT: Ears normal, nares patent, oropharynx clear without exudates. Moist mucous membranes. NECK: Normal range of motion, supple without lymphadenopathy, JVD, or masses. LUNGS: Breath sounds equal, clear to auscultation bilaterally. No wheezes, and no crackles. No accessory muscle use. HEART: Regular rate and rhythm, normal S1 and S2 without murmur, rub or gallop. No chest wall tenderness ABDOMEN: Soft, nontender, not distended, normoactive bowel sounds, no guarding, no rebound, no masses. No hepatomegaly or splenomegaly. +Obese MUSCULOSKELETAL: Normal range of motion at all joints. No bony deformities or tenderness UPPER EXTREMITIES: 2+ pulses, warm, well-perfused. No cyanosis. No clubbing. No peripheral edema. LOWER EXTREMITIES: 2+ pulses, warm, well-perfused. No calf tenderness. No peripheral edema. NEUROLOGICAL: Cranial nerves II-XII intact. Normal speech. Normal gait. PSYCHIATRIC: Cooperative. Good eye contact. Appropriate mood and affect. SKIN: Warm, dry, normal turgor, no rashes or lesions noted, normal capillary refill. ASSESSMENT/PLAN: 66 y.o. F with pmh of HTN, HLD, DM, hypothyroidism, asthma, GERD, and CAD s/p stent x1 presenting with chest pain placed into obs for r/o acs #Rule out ACS w/ hx of CAD s/p stent -Tele-obs -Patient in -Continue aspirin 81 mg po daily -Continue plavix 75 mg po daily -Continue toprol xl 50 mg po daily -Continue lipitor 10 mg po hs -Continue Ranexa 500 mg po bid for chronic anginal pain -O2 2L NC -Nitro-dur 0.4 mg TD patch daily -Morphine 1 mg IVP q4h PRN -Trend troponins/EKG, 0.03 x2, 3rd at midnight -Cardiology consulted, Dr. Holden -Per cardiology patient to be transferred to [place] in the AM for possible cardiac cath #HTN -Continue Imdur 60 mg po daily -Continue lisinopril 40 mg po daily -Continue toprol xl 50 mg po daily #HLD -Continue lipitor 10 mg po hs -Patient takes zocor 20 mg po hs @ home #DM -BGM ACHS -ISS ACHS -Hold Metformin #Hypothyroidism -Continue synthroid 150 mcg po daily -Check TSH #Asthma, stable -Continue Singulair 10 mg po hs #GERD -Continue protonix 40 mg po daily -Patient takes prilosec 40 mg po daily at home #FEN/GI -IVF NS @ 75 cc/hr -wnl -Diabetic/sodium diet, NPO @ midnight for possible tx and cardiac cath #PPx DVT- Heparin 5000 u sq q8h GI- Protonix 40 mg po daily #Dispo- Placed into tele obs, transfer to [place] likely in AM per cardiology Visit type - Emergency Visit Emergency Visit: Yes ED Registration Date: 01/18/17 Care time: The patient presented to the Emergency Department on the above date and was hospitalized for further evaluation of their emergent condition. - New Patient This patient is new to me today: Yes Date on this admission: 01/18/17 - Critical Care Critical Care patient: No
[2017-01-18] MEDS: NITROGLYCERIN 0.4 MG/HOUR TD PATCH TD SCH (22:15)
[2017-01-18] MEDS: ATORVASTATIN CA 10 MG TABLET (FP) PO SCH (22:23)
[2017-01-18] MEDS: RANOLAZINE E.R. 500 MG TABLET (FP) PO SCH (22:23)
[2017-01-18] MEDS: GABAPENTIN 300 MG CAPSULE (FP) PO SCH (22:23)
[2017-01-18] MEDS: MONTELUKAST NA 10 MG TABLET PO SCH (22:23)
[2017-01-18] MEDS: INSULIN SLIDING SCALE (NOVOLOG) 1 VIAL SQ SCH (22:30)
[2017-01-19] MEDS ORDERED: ACETAMINOPHEN 325 MG TABLET (FP) PO ONE (00:11)
[2017-01-19] MEDS: NITROGLYCERIN 0.4 MG/HOUR TD PATCH TD SCH ×2 (00:24→11:40)
[2017-01-19] MEDS: SODIUM CHLORIDE 1,000 ML IV SCH ×2 (00:24→11:59)
[2017-01-19] MEDS: INSULIN SLIDING SCALE (NOVOLOG) 1 VIAL SQ SCH ×4 (06:12→21:44)
[2017-01-19] MEDS ORDERED: metFORMIN HCL 500 MG TABLET (FP) PO SCH (07:00)
[2017-01-19] MEDS ORDERED: LEVOTHYROXINE NA 150 MCG TABLET PO SCH (07:00)
[2017-01-19 08:07] LABS: BASOPHIL 0.8 % (0-2.0); EOSINOPHIL 2.4 % (0-4.5); MCH 27.4 pg (25.7-33.7); MCHC 32.5 g/dl (32.0-36.0); MEAN CELL VOLUME 84.2 fl (80-96); MEAN PLT VOLUME 8.1 fl (7.5-11.1); NEUTROPHILS 56.3 % (42.8-82.8); PLATELET COUNT 291 K/MM3 (134-434); RDW 15.5 % (11.6-15.6); WHITE BLOOD COUNT 7.6 K/mm3 (4.0-10.0)
[2017-01-19 09:01] LABS: CHOLESTEROL 146 mg/dL (50-200)
[2017-01-19 09:07] LABS: ALBUMIN 3.4 g/dl (3.4-5.0); ALK PHOS 96 U/L (45-117); ANION GAP 5 (8-16); BILIRUBIN,TOTAL 0.5 mg/dL (0.2-1.0); CALCIUM 9.3 mg/dL (8.5-10.1); CO2 27 mmol/L (21-32); CREATININE 0.7 mg/dL (0.55-1.02); GLUCOSE,RANDOM 100 mg/dL (74-106); SGOT/AST 11 U/L (15-37); SGPT/ALT 22 U/L (12-78); TOT PROT 6.1 g/dl (6.4-8.2)
[2017-01-19] MEDS: ASPIRIN COATED 81 MG TABLET.EC PO SCH (09:18)
[2017-01-19] MEDS: LISINOPRIL 20 MG TABLET (FP) PO SCH (09:19)
[2017-01-19] MEDS: PANTOPRAZOLE 40 MG TABLET (FP) PO SCH (09:19)
[2017-01-19] MEDS: CLOPIDOGREL BISULFATE 75 MG TABLET (FP) PO SCH (09:19)
[2017-01-19] MEDS: METOPROLOL SUCCINATE 50 MG TAB.SR.24H (FP) PO SCH (09:19)
[2017-01-19] MEDS: GABAPENTIN 300 MG CAPSULE (FP) PO SCH ×2 (09:19→21:41)
[2017-01-19] MEDS: RANOLAZINE E.R. 500 MG TABLET (FP) PO SCH ×2 (09:19→21:41)
[2017-01-19 09:25] LABS: THYROID STIMULATING HORMONE 0.07 uIU/ml (0.358-3.74)
--- NOTE | 2017-01-19 09:50 | PN ---
Progress Note, Physician History of Present Illness: 66 y/o black woman with a PMHx of CAD-->PCI 2014 (non-obstructive CAD, with significant LAD lesion 08/2016 cath), NIDDM, GERD, HTN, HLD, hypothyroidism, obesity, sedentary lifestyle, polyps, now presents to the ED with sharp, sudden onset left sided chest pain today while at a . Patient reports the pain radiated to her back and to her left arm. Patient reports associated intermittent positional SOB. Patient states the SOB is better with sitting up and worsened while lying back. It lasted for a few hours, but is now absent. Patient also reports that her last BM was on Tuesday. Denies fever, chills. Denies N/V/D. Denies headache, dizziness. Pt says she does very little walking or other forms of exercise. - Current Medication List Current Medications: Active Medications Aspirin (Ecotrin -) 81 mg PO DAILY [facility] Last Admin: 01/19/17 09:18 Dose: 81 mg Atorvastatin Calcium (Lipitor -) 10 mg PO HS [facility] Last Admin: 01/18/17 22:23 Dose: 10 mg Clopidogrel Bisulfate (Plavix -) 75 mg PO DAILY [facility] Last Admin: 01/19/17 09:19 Dose: 75 mg Gabapentin (Neurontin -) 300 mg PO BID [facility] Last Admin: 01/19/17 09:19 Dose: 300 mg Sodium Chloride (Normal Saline -) 1,000 mls @ 75 mls/hr IV ASDIR [facility] Last Admin: 01/19/17 00:24 Dose: 75 mls/hr Insulin Aspart (Novolog Vial Sliding Scale -) 1 vial SQ ACHS [facility] PRN Reason: Protocol Last Admin: 01/19/17 06:12 Dose: Not Given Isosorbide Mononitrate (Imdur -) 60 mg PO DAILY [facility] Last Admin: 01/19/17 09:19 Dose: 60 mg Levothyroxine Sodium (Synthroid -) 150 mcg PO DAILY@0700 [facility] Last Admin: 01/19/17 06:13 Dose: Not Given Lisinopril (Prinivil) 40 mg PO DAILY [facility] Last Admin: 01/19/17 09:19 Dose: 40 mg Metoprolol Succinate (Toprol Xl -) 50 mg PO DAILY [facility] Last Admin: 01/19/17 09:19 Dose: 50 mg Montelukast Sodium (Singulair -) 10 mg PO HS [facility] Last Admin: 01/18/17 22:23 Dose: 10 mg Morphine Sulfate (Morphine Injection -) 1 mg IVPUSH Q4H PRN PRN Reason: PAIN Nitroglycerin (Nitro-Dur Patch -) 0.4 mg TD DAILY [facility] Last Admin: 01/19/17 00:24 Dose: 0.4 mg Pantoprazole Sodium (Protonix -) 40 mg PO DAILY [facility] Last Admin: 01/19/17 09:19 Dose: 40 mg Ranolazine (Ranexa -) 500 mg PO BID [facility] Last Admin: 01/19/17 09:19 Dose: 500 mg - Objective Vital Signs: Vital Signs Temperature 98 F 01/19/17 09:00 Pulse Rate 64 01/19/17 09:00 Respiratory Rate 18 01/19/17 09:00 Blood Pressure 150/70 01/19/17 09:00 O2 Sat by Pulse Oximetry (%) 96 01/19/17 05:07 Eyes: Yes: WNL, Conjunctiva Clear, EOM Intact HENT: Yes: WNL, Atraumatic, Normocephalic Neck: Yes: WNL, Supple, Trachea Midline Cardiovascular: Yes: WNL, Regular Rate and Rhythm Respiratory: Yes: WNL, Regular, CTA Bilaterally Gastrointestinal: Yes: WNL, Normal Bowel Sounds Genitourinary: Yes: WNL Musculoskeletal: Yes: WNL Extremities: Yes: WNL Edema: No Integumentary: Yes: WNL Neurological: Yes: WNL, Alert, Oriented ...Motor Strength: WNL Psychiatric: Yes: WNL Labs: CBC, BMP 01/19/17 05:46 01/19/17 05:46 INR, PTT INR 1.12 (0.82-1.09) 01/18/17 12:32 Assessment/Plan - Problems (1) Hypothyroid Assessment/Plan: TSH WNL. Code(s): E03.9 - HYPOTHYROIDISM, UNSPECIFIED (2) Sedentary lifestyle Assessment/Plan: The need to increase daily exercise, once she is stable, was discussed in detail with pt and her son. Code(s): Z91.89 - OTH PERSONAL RISK FACTORS, NOT ELSEWHERE CLASSIFIED (3) Asthma Code(s): J45.909 - UNSPECIFIED ASTHMA, UNCOMPLICATED (4) GERD (gastroesophageal reflux disease) Code(s): K21.9 - GASTRO-ESOPHAGEAL REFLUX DISEASE WITHOUT ESOPHAGITIS (5) HTN (hypertension) Assessment/Plan: on lisinopril and metoprolol. Code(s): I10 - ESSENTIAL (PRIMARY) HYPERTENSION (6) History of coronary artery stent placement Code(s): Z95.5 - PRESENCE OF CORONARY ANGIOPLASTY IMPLANT AND GRAFT (7) Hyperlipidemia Assessment/Plan: on atorvastatin; keep LDL cholesterol < 70 mg/dL. Code(s): E78.5 - HYPERLIPIDEMIA, UNSPECIFIED (8) Morbidly obese Assessment/Plan: The importance of changing diet, portion control, and increasing exercise was discussed in detail. Code(s): E66.01 - MORBID (SEVERE) OBESITY DUE TO EXCESS CALORIES (9) Type 2 diabetes mellitus Code(s): E11.9 - TYPE 2 DIABETES MELLITUS WITHOUT COMPLICATIONS (10) Atypical chest pain Assessment/Plan: 1st TNI 0.03; f/u serially. EKG; telemetry. Hx coronary stent 2014; refractory anginasignificant LAD lesion -will transfer to [facility] for PCI LAD in AM. Cont DAPT Code(s): R07.89 - OTHER CHEST PAIN
[2017-01-19] MEDS ORDERED: ISOSORBIDE MONONITRATE 60 MG TAB.SR.24H (FP) PO SCH (10:00)
--- NOTE | 2017-01-19 10:29 | EKG ---
Test Reason : Blood Pressure : / mmHG Vent. Rate : 063 BPM Atrial Rate : 063 BPM P-R Int : 166 ms QRS Dur : 086 ms QT Int : 380 ms P-R-T Axes : 054 022 028 degrees QTc Int : 388 ms NORMAL SINUS RHYTHM NONSPECIFIC T WAVE ABNORMALITY ABNORMAL ECG WHEN COMPARED WITH ECG OF 18-JAN-2017 12:45, NO SIGNIFICANT CHANGE WAS FOUND Confirmed by SHAKILA LYON MD ([id number]) on 01/19/2017 10:29:31 AM Referred By: Confirmed By:SHAKILA LYON MD
--- NOTE | 2017-01-19 12:27 | PN ---
Physical Exam: SUBJECTIVE: Patient seen and examined at bedside. Son present. Has intermittent anginal symptoms, the same symptoms she has had for months. OBJECTIVE: Vital Signs Period Temp Pulse Resp BP Sys/Peñaloza Pulse Ox Last 24 Hr 97.5 F-98.5 F 64-64 18-20 133-151/65-70 96 GENERAL: The patient is awake, alert, and fully oriented, in no acute distress. HEAD: Normal with no signs of trauma. EYES: PERRL, extraocular movements intact, sclera anicteric, conjunctiva clear. No ptosis. LUNGS: Breath sounds equal, clear to auscultation bilaterally, no wheezes, no crackles, no accessory muscle use. HEART: Regular rate and rhythm, S1, S2 ABDOMEN: Soft, nontender, nondistended, normoactive bowel sounds, no guarding, no rebound, no hepatosplenomegaly, no masses. EXTREMITIES: 2+ pulses, warm, well-perfused, no edema. NEUROLOGICAL: Cranial nerves II through XII grossly intact. Normal speech, moves all extremities freely Laboratory Results - last 24 hr 01/18/17 01/18/17 01/19/17 22:22 23:55 05:46 WBC 7.6 RBC 3.92 Hgb 10.8 Hct 33.1 MCV 84.2 MCH 27.4 MCHC 32.5 RDW 15.5 Plt Count 291 MPV 8.1 Neutrophils % 56.3 Lymphocytes % 34.7 Monocytes % 5.8 Eosinophils % 2.4 Basophils % 0.8 Sodium Potassium Chloride Carbon Dioxide Anion Gap BUN Creatinine Creat Clearance w eGFR POC Glucometer 157 Random Glucose Hemoglobin A1c % Calcium Total Bilirubin AST ALT Alkaline Phosphatase Troponin I 0.03 Total Protein Albumin Triglycerides Cholesterol Total LDL Cholesterol HDL Cholesterol TSH 01/19/17 01/19/17 01/19/17 05:46 05:46 05:46 WBC RBC Hgb Hct MCV MCH MCHC RDW Plt Count MPV Neutrophils % Lymphocytes % Monocytes % Eosinophils % Basophils % Sodium 142 Potassium 4.0 Chloride 110 H Carbon Dioxide 27 Anion Gap 5 L BUN 13 Creatinine 0.7 Creat Clearance w eGFR > 60 POC Glucometer Random Glucose 100 Hemoglobin A1c % 6.7 H D Calcium 9.3 Total Bilirubin 0.5 D AST 11 L ALT 22 Alkaline Phosphatase 96 Troponin I Total Protein 6.1 L Albumin 3.4 Triglycerides 86 Cholesterol 146 Total LDL Cholesterol 72 HDL Cholesterol 51 TSH 0.07 L D Active Medications Generic Name Dose Route Start Last Admin Trade Name Javadq PRN Reason Stop Dose Admin Aspirin 81 mg 01/19/17 10:00 01/19/17 09:18 Ecotrin - PO 81 mg DAILY [facility] Administration Atorvastatin Calcium 10 mg 01/18/17 22:00 01/18/17 22:23 Lipitor - PO 10 mg HS YUE Administration Clopidogrel Bisulfate 75 mg 01/19/17 10:00 01/19/17 09:19 Plavix - PO 75 mg DAILY [facility] Administration Gabapentin 300 mg 01/18/17 22:00 01/19/17 09:19 Neurontin - PO 300 mg BID [facility] Administration Sodium Chloride 1,000 mls @ 75 mls/hr 01/19/17 00:00 01/19/17 11:59 Normal Saline - IV 75 mls/hr ASDIR [facility] Administration Insulin Aspart 1 vial 01/18/17 22:00 01/19/17 11:39 Novolog Vial Sliding Scale - SQ Not Given ACHS [facility] Protocol Isosorbide Mononitrate 60 mg 01/19/17 10:00 01/19/17 09:19 Imdur - PO 60 mg DAILY [facility] Administration Levothyroxine Sodium 150 mcg 01/19/17 07:00 01/19/17 06:13 Synthroid - PO Not Given DAILY@0700 [facility] Lisinopril 40 mg 01/19/17 10:00 01/19/17 09:19 Prinivil PO 40 mg DAILY [facility] Administration Metoprolol Succinate 50 mg 01/19/17 10:00 01/19/17 09:19 Toprol Xl - PO 50 mg DAILY [facility] Administration Montelukast Sodium 10 mg 01/18/17 22:00 01/18/17 22:23 Singulair - PO 10 mg HS [facility] Administration Morphine Sulfate 1 mg 01/18/17 21:02 Morphine Injection - IVPUSH Q4H PRN PAIN Nitroglycerin 0.4 mg 01/18/17 21:00 01/19/17 11:40 Nitro-Dur Patch - TD 0.4 mg DAILY [facility] Administration Pantoprazole Sodium 40 mg 01/19/17 10:00 01/19/17 09:19 Protonix - PO 40 mg DAILY [facility] Administration Ranolazine 500 mg 01/18/17 22:00 01/19/17 09:19 Ranexa - PO 500 mg BID [facility] Administration ASSESSMENT/PLAN 66 year-old woman with a PMH significant for HTN, HLD, CAD s/p PCI (2014) s/p cardiac cath significant for a non-obstructing LAD lesion (08/2016) with anginal symptoms, NIDDM, GERD, and hypothyroidism. Admitted for worsening left- sided chest pain. CAD with LAD lesion Unstable angina --patient has persistent anginal symptoms, usually relieved at home with nitro; symptoms became acutely worse while at a --anginal symptoms persist today but are at baseline --troponins negative x 3 --ECG without significant change --seen and evaluated by cardiology, plan is to transfer tomorrow to [place] for cath --continue Toprol XL, Ranexa, Isosorbide, nitropatch, ASA, morphine, Plavix Hypertension --continue lisinopril, Toprol XL Hyperlipidemia --continue Lipitor NIDDM --Novolog sliding scale coverage GERD --continue Protonix Hypothyroidism --TSH low --decrease levothyroxine to 137mcg; will need level tested in 6 weeks as outpatient Fluids: PO intake adequate Electrolytes: replete as indicated Nutrition: diabetic sodium diet; NPO after midnight for possible cath tomorrow DVT prophylaxis: subq heparin Dispo: for transfer to [place] for cardiac cath. Full code. Visit type - Emergency Visit Emergency Visit: Yes ED Registration Date: 01/18/17 Care time: The patient presented to the Emergency Department on the above date and was hospitalized for further evaluation of their emergent condition. - New Patient This patient is new to me today: Yes Date on this admission: 01/19/17 - Critical Care Critical Care patient: No
[2017-01-19] MEDS: MONTELUKAST NA 10 MG TABLET PO SCH (21:41)
[2017-01-19] MEDS: HEPARIN NA (PORCINE) 5,000 UNITS/ML 1ML VIAL SQ SCH (21:41)
[2017-01-19] MEDS: ATORVASTATIN CA 10 MG TABLET (FP) PO SCH (21:41)
[2017-01-20] MEDS ORDERED: LEVOTHYROXINE NA 25 MCG TABLET (FP) ONE (05:54)
[2017-01-20] MEDS ORDERED: LEVOTHYROXINE NA 112 MCG TABLET (FP) ONE (05:54)
[2017-01-20] MEDS: HEPARIN NA (PORCINE) 5,000 UNITS/ML 1ML VIAL SQ SCH (06:16)
[2017-01-20] MEDS: INSULIN SLIDING SCALE (NOVOLOG) 1 VIAL SQ SCH (06:17)
[2017-01-20] MEDS ORDERED: LEVOTHYROXINE 112 MCG, LEVOTHYROXINE 25 MCG PO SCH (07:00)
[2017-01-20] MEDS ORDERED: LEVOTHYROXINE NA 150 MCG TABLET PO SCH (07:00)
[2017-01-20 08:07] LABS: BASOPHIL 0.9 % (0-2.0); EOSINOPHIL 2.4 % (0-4.5); MCH 27.3 pg (25.7-33.7); MCHC 32.8 g/dl (32.0-36.0); MEAN CELL VOLUME 83.1 fl (80-96); MEAN PLT VOLUME 7.9 fl (7.5-11.1); NEUTROPHILS 55.4 % (42.8-82.8); PLATELET COUNT 304 K/MM3 (134-434); RDW 15.3 % (11.6-15.6); WHITE BLOOD COUNT 6.7 K/mm3 (4.0-10.0)
[2017-01-20 08:40] LABS: ALBUMIN 3.5 g/dl (3.4-5.0); ANION GAP 9 (8-16); BILIRUBIN,TOTAL 0.6 mg/dL (0.2-1.0); CALCIUM 9.6 mg/dL (8.5-10.1); CO2 27 mmol/L (21-32); CREATININE 0.7 mg/dL (0.55-1.02); GLUCOSE,RANDOM 107 mg/dL (74-106); MAGNESIUM 2.1 mg/dL (1.8-2.4); PHOSPHOROUS 3.7 mg/dL (2.5-4.9); SGOT/AST 9 U/L (15-37); SGPT/ALT 25 U/L (12-78); TOT PROT 6.1 g/dl (6.4-8.2)
[2017-01-20 08:41] LABS: ALK PHOS 99 U/L (45-117)
--- NOTE | 2017-01-20 08:51 | PN ---
Progress Note, Physician Chief Complaint: Pt sitting in chair; feels better now, but had strong sudden central chest pain going to the back when she changed postion in bed last night that lasted about 20 minutes. Her son, Radhames, is at her side. History of Present Illness: 66 y/o black woman with a PMHx of CAD-->PCI 2014 (non-obstructive CAD, with significant LAD lesion 08/2016 cath), NIDDM, GERD, HTN, HLD, hypothyroidism, obesity, sedentary lifestyle, polyps, now presents to the ED with sharp, sudden onset left sided chest pain today while at a . Patient reports the pain radiated to her back and to her left arm. Patient reports associated intermittent positional SOB. Patient states the SOB is better with sitting up and worsened while lying back. It lasted for a few hours, but is now absent. Patient also reports that her last BM was on Tuesday. Denies fever, chills. Denies N/V/D. Denies headache, dizziness. Pt says she does very little walking or other forms of exercise. - Current Medication List Current Medications: Active Medications Aspirin (Ecotrin -) 81 mg PO DAILY [facility] Last Admin: 01/19/17 09:18 Dose: 81 mg Atorvastatin Calcium (Lipitor -) 10 mg PO HS [facility] Last Admin: 01/19/17 21:41 Dose: 10 mg Clopidogrel Bisulfate (Plavix -) 75 mg PO DAILY [facility] Last Admin: 01/19/17 09:19 Dose: 75 mg Gabapentin (Neurontin -) 300 mg PO BID [facility] Last Admin: 01/19/17 21:41 Dose: 300 mg Heparin Sodium (Porcine) (Heparin -) 5,000 unit SQ TID [facility] Last Admin: 01/20/17 06:16 Dose: 5,000 unit Insulin Aspart (Novolog Vial Sliding Scale -) 1 vial SQ ACHS [facility] PRN Reason: Protocol Last Admin: 01/20/17 06:17 Dose: Not Given Isosorbide Mononitrate (Imdur -) 60 mg PO DAILY [facility] Last Admin: 01/19/17 09:19 Dose: 60 mg Levothyroxine Sodium 112 mcg/ (Levothyroxine Sodium 25 mcg) 137 mcg PO DAILY@ 0700 [facility] Last Admin: 01/20/17 06:15 Dose: 137 mcg Lisinopril (Prinivil) 40 mg PO DAILY [facility] Last Admin: 01/19/17 09:19 Dose: 40 mg Metoprolol Succinate (Toprol Xl -) 50 mg PO DAILY [facility] Last Admin: 01/19/17 09:19 Dose: 50 mg Montelukast Sodium (Singulair -) 10 mg PO HS [facility] Last Admin: 01/19/17 21:41 Dose: 10 mg Morphine Sulfate (Morphine Injection -) 1 mg IVPUSH Q4H PRN PRN Reason: PAIN Nitroglycerin (Nitro-Dur Patch -) 0.4 mg TD DAILY [facility] Last Admin: 01/19/17 11:40 Dose: 0.4 mg Pantoprazole Sodium (Protonix -) 40 mg PO DAILY [facility] Last Admin: 01/19/17 09:19 Dose: 40 mg Ranolazine (Ranexa -) 500 mg PO BID [facility] Last Admin: 01/19/17 21:41 Dose: 500 mg - Objective Vital Signs: Vital Signs Temperature 98.3 F 01/20/17 06:00 Pulse Rate 62 01/20/17 06:00 Respiratory Rate 18 01/20/17 06:00 Blood Pressure 150/77 01/20/17 06:00 O2 Sat by Pulse Oximetry (%) 98 01/20/17 05:00 Constitutional: Yes: Calm Eyes: Yes: WNL HENT: Yes: WNL Neck: Yes: WNL Cardiovascular: Yes: WNL Respiratory: Yes: WNL Gastrointestinal: Yes: Soft, Abdomen, Obese ...Rectal Exam: Yes: Deferred Genitourinary: No: Anuria Breast(s): Yes: WNL Musculoskeletal: Yes: WNL Extremities: Yes: WNL Edema: No Peripheral Pulses WNL: Yes Integumentary: Yes: WNL Neurological: Yes: WNL Psychiatric: Yes: WNL Labs: CBC, BMP 01/20/17 05:47 INR, PTT INR 1.12 (0.82-1.09) 01/18/17 12:32 Abnormal Lab Results 01/19/17 01/20/17 05:46 05:47 Chloride 110 H Anion Gap 5 L Random Glucose 107 H AST 11 L 9 L Total Protein 6.1 L 6.1 L TSH 0.07 L D Problem List - Problems (1) Hypothyroid Assessment/Plan: TSH WNL. Code(s): E03.9 - HYPOTHYROIDISM, UNSPECIFIED (2) Sedentary lifestyle Assessment/Plan: The need to increase daily exercise, once she is stable, was discussed in detail with pt and her son. Code(s): Z91.89 - OTH PERSONAL RISK FACTORS, NOT ELSEWHERE CLASSIFIED (3) Asthma Code(s): J45.909 - UNSPECIFIED ASTHMA, UNCOMPLICATED (4) GERD (gastroesophageal reflux disease) Code(s): K21.9 - GASTRO-ESOPHAGEAL REFLUX DISEASE WITHOUT ESOPHAGITIS (5) HTN (hypertension) Assessment/Plan: on lisinopril and metoprolol; f/u serially.Diet change, weight loss, and exercise are important in helping better control BP. Code(s): I10 - ESSENTIAL (PRIMARY) HYPERTENSION (6) History of coronary artery stent placement Code(s): Z95.5 - PRESENCE OF CORONARY ANGIOPLASTY IMPLANT AND GRAFT (7) Hyperlipidemia Assessment/Plan: on atorvastatin; keep LDL cholesterol < 70 mg/dL. Code(s): E78.5 - HYPERLIPIDEMIA, UNSPECIFIED (8) Morbidly obese Assessment/Plan: The importance of changing diet, portion control, and increasing exercise was discussed in detail. Code(s): E66.01 - MORBID (SEVERE) OBESITY DUE TO EXCESS CALORIES (9) Type 2 diabetes mellitus Code(s): E11.9 - TYPE 2 DIABETES MELLITUS WITHOUT COMPLICATIONS (10) Atypical chest pain Assessment/Plan: 1st TNI 0.03 x 2. Telemetry: NSR; occarional APC. Hx coronary stent 2014; nonobstructive disease 08/2016, though with significant LAD lesion being followed closely. Pt for transfer to [facility] for coronary angiogram. Code(s): R07.89 - OTHER CHEST PAIN
[2017-01-20] MEDS ORDERED: PT OWN MED DRAWER 7, Y5N ONE (10:07)
[2017-01-20] MEDS: CLOPIDOGREL BISULFATE 75 MG TABLET (FP) PO SCH (10:10)
[2017-01-20] MEDS: PANTOPRAZOLE 40 MG TABLET (FP) PO SCH (10:10)
[2017-01-20] MEDS: LISINOPRIL 20 MG TABLET (FP) PO SCH (10:10)
[2017-01-20] MEDS: METOPROLOL SUCCINATE 50 MG TAB.SR.24H (FP) PO SCH (10:10)
[2017-01-20] MEDS: RANOLAZINE E.R. 500 MG TABLET (FP) PO SCH (10:10)
[2017-01-20] MEDS: NITROGLYCERIN 0.4 MG/HOUR TD PATCH TD SCH (10:11)
[2017-01-20] MEDS: GABAPENTIN 300 MG CAPSULE (FP) PO SCH (10:11)
[2017-01-20] MEDS: ASPIRIN COATED 81 MG TABLET.EC PO SCH (10:11)
--- NOTE | 2017-01-20 10:32 | DS ---
Physical Exam: SUBJECTIVE: Patient seen and examined. Episode of chest pain last night lasting 20 minutes. OBJECTIVE: Vital Signs Period Temp Pulse Resp BP Sys/Peñaloza Pulse Ox Last 24 Hr 97.7 F-98.6 F 54-66 18-20 136-150/54-88 98-98 PHYSICAL EXAM GENERAL: The patient is awake, alert, and fully oriented, in no acute distress. HEAD: Normal with no signs of trauma. EYES: PERRL, extraocular movements intact, sclera anicteric, conjunctiva clear. No ptosis. LUNGS: Breath sounds equal, clear to auscultation bilaterally, no wheezes, no crackles, no accessory muscle use. HEART: Regular rate and rhythm, S1, S2 ABDOMEN: Soft, nontender, nondistended, normoactive bowel sounds, no guarding, no rebound, no hepatosplenomegaly, no masses. EXTREMITIES: 2+ pulses, warm, well-perfused, no edema. NEUROLOGICAL: Cranial nerves II through XII grossly intact. Normal speech, moves all extremities freely LABS Laboratory Results - last 24 hr 01/19/17 01/19/17 01/19/17 11:38 17:04 21:37 WBC RBC Hgb Hct MCV MCH MCHC RDW Plt Count MPV Neutrophils % Lymphocytes % Monocytes % Eosinophils % Basophils % Sodium Potassium Chloride Carbon Dioxide Anion Gap BUN Creatinine Creat Clearance w eGFR POC Glucometer 134 130 111 Random Glucose Calcium Phosphorus Magnesium Total Bilirubin AST ALT Alkaline Phosphatase Total Protein Albumin 01/20/17 01/20/17 01/20/17 05:29 05:47 05:47 WBC 6.7 RBC 3.96 Hgb 10.8 Hct 32.9 MCV 83.1 MCH 27.3 MCHC 32.8 RDW 15.3 Plt Count 304 MPV 7.9 Neutrophils % 55.4 Lymphocytes % 35.2 Monocytes % 6.1 Eosinophils % 2.4 Basophils % 0.9 Sodium 142 Potassium 4.0 Chloride 106 Carbon Dioxide 27 Anion Gap 9 BUN 13 Creatinine 0.7 Creat Clearance w eGFR > 60 POC Glucometer 124 Random Glucose 107 H Calcium 9.6 Phosphorus 3.7 Magnesium 2.1 Total Bilirubin 0.6 AST 9 L ALT 25 Alkaline Phosphatase 99 Total Protein 6.1 L Albumin 3.5 HOSPITAL COURSE: Date of Admission:01/18/17 Date of Discharge: 01/20/17 Pre hospital course Patient is a 64 year-old female with significant PMH of HTN, HLD, CAD s/p stent in September 2014, revision May 2015), Diabetes Mellitus, Hypothyroidism presented to the ED with the chief complaint of left sided chest pain. As per the patient, she was at a when the chest pain started suddenly, located on the left side, pressure type, 10/10 in intensity, non radiating, associated with SOB but not associated with nausea or vomiting. She called EMS and came to the ED for further evaluation. Patient recently had a cardiac workup done (Carotid doppler, echo and one other test that she doesn't know) at Dr. Isabel's office, still has one test pending that is scheduled to be done on 02/07/17. She says she had a stent placed 2 years ago in [place]. Denied palpitation, cough, fever, chills, rigors or sweating. Bowel/Bladder habit normal. Sleep/Appetite normal. ER course (1) Afebrile, hemodynamically stable, Troponin x 1 negative (2) EKG- No significant ST and T wave changes (3) Nitroglycerin 2 % Subsequent hospital course by problem list 66 year-old woman with a PMH significant for HTN, HLD, CAD s/p PCI (2014) s/p cardiac cath significant for a non-obstructing LAD lesion (08/2016) with anginal symptoms, NIDDM, GERD, and hypothyroidism. Admitted for worsening left- sided chest pain. CAD with LAD lesion Unstable angina --troponins negative x 3 --ECG without significant change --seen and evaluated by cardiology, plan is to transfer to [place] for cath --continue Toprol XL, Ranexa, Isosorbide, nitropatch, ASA, morphine, Plavix Hypertension --continued lisinopril, Toprol XL Hyperlipidemia --continued Lipitor NIDDM --Novolog sliding scale coverage GERD --continued Protonix Hypothyroidism --TSH low --decrease levothyroxine to 137mcg; will need level tested in 6 weeks as outpatient Nutrition: diabetic sodium diet; NPO after midnight for possible cath tomorrow DVT prophylaxis: subq heparin Dispo: for transfer to [place] for cardiac cath. Full code. Minutes to complete discharge: 35 Discharge Summary Reason For Visit: CHEST PAIN Current Active Problems Atypical chest pain (Acute) Chest pain (Acute) Condition: Stable - Instructions Referrals: Dawood Holden MD [Staff Physician] - Jay Pan [Primary Care Provider] - Disposition: TRANSFER ACUTE CARE/OTHER HOSP - Home Medications Comprehensive Discharge Medication List: Ambulatory Orders Lisinopril [Prinivil -] 40 mg PO DAILY #0 tablet 05/26/13 Montelukast Na [Singulair -] 10 mg PO HS #0 tablet 05/26/13 Omeprazole [Prilosec (RX)] 40 mg PO DAILY #0 capsule.dr 05/26/13 Aspirin Coated [Ecotrin -] 81 mg PO DAILY tablet.ec 10/18/14 Clopidogrel Bisulfate [Plavix -] 75 mg PO DAILY 03/06/15 Nitroglycerin Sublingual [Nitrostat -] 0.4 mg SL Q5M PRN #30 tab 03/07/15 Simvastatin [Zocor -] 20 mg PO HS 03/07/15 Metoprolol Succinate [Toprol XL -] 50 mg PO DAILY 09/03/15 Levothyroxine [Synthroid -] 150 mcg PO DAILY #30 tablet 03/20/16 Albuterol Sulfate Inhaler - [Ventolin HFA Inhaler -] 1 - 2 inh PO QID PRN Gabapentin 300 mg PO BID 05/21/16 Isosorbide Mononitrate [Imdur -] 60 mg PO DAILY 05/21/16 Ranolazine [Ranexa] 500 mg PO BID 01/18/17 Heparin - 5,000 unit SQ TID vial 01/20/17 Insulin Sliding Scale [Novolog Vial Sliding Scale -] 1 vial SQ ACHS units 01/20 Nitroglycerin Patch [Nitro-Dur Patch -] 0.4 mg TD DAILY #30 tab 01/20/17 This patient is new to me today: No Emergency Visit: Yes ED Registration Date: 01/18/17 Care time: The patient presented to the Emergency Department on the above date and was hospitalized for further evaluation of their emergent condition. Critical Care patient: No - Discharge Referral [facility] Med [facility] No
[2017-01-20 11:39] VITALS: BP 144/68; PULSE 68; TEMP 98
== END 2017-01-20 11:47 | disposition short-term general hospital (02) ==
LOC: JER 12:06 → INTOOBSV 18:53 → UNDOADMOB 18:53 → JERBED 18:53 → J4W 22:08
PROVIDERS: ADMIT Internal Medicine; ATTEND Nurse Practitioner Acute Care
PROC: 3E0337Z Introduction of Electrolytic and Water Balance Substance into Peripheral Vein, Percutaneous Approach (ICD-10-PCS; principal; 2017-01-18)
PROC: 3E013GC Introduction of Other Therapeutic Substance into Subcutaneous Tissue, Percutaneous Approach (ICD-10-PCS; 2017-01-18)
DX: R07.9 Chest pain, unspecified (principal); I25.110 Atherosclerotic heart disease of native coronary artery with unstable angina pectoris; I10 Essential (primary) hypertension; E11.9 Type 2 diabetes mellitus without complications; E78.5 Hyperlipidemia, unspecified; E03.9 Hypothyroidism, unspecified; K21.9 Gastro-esophageal reflux disease without esophagitis; J45.909 Unspecified asthma, uncomplicated; Z95.5 Presence of coronary angioplasty implant and graft; Z79.82 Long term (current) use of aspirin; Z79.84 Long term (current) use of oral hypoglycemic drugs; Z79.4 Long term (current) use of insulin; E66.01 Morbid (severe) obesity due to excess calories; Z68.41 Body mass index [BMI] 40.0-44.9, adult; Z78.0 Asymptomatic menopausal state; Z91.89 Other specified personal risk factors, not elsewhere classified
CPT/HCPCS: 36415; 71010-TC; 80053; 80061; 82553; 83036; 83721; 83735; 84100; 84443; 84484; 85025; 85610; 93005; 93010; 93306-TC; 99285-25; G0378; J1644

== ENCOUNTER 2018-01-02 19:24 | Emergency (ER) | payer OTHER ==
[2018-01-02 19:44] VITALS: BP 164/104; PULSE 113; TEMP 97.9; BMI 43.3
--- NOTE | 2018-01-02 20:12 | PDOC ---
History of Present Illness - General Chief Complaint: Chronic pain Stated Complaint: BACK PAIN Time Seen by Provider: 01/02/18 20:11 History Source: Patient Exam Limitations: No Limitations - History of Present Illness Initial Comments: 01/02/18 21:07 Patient is a 67-year-old female who presents to emergency department for right lower back pain. Patient states her pain started yesterday. She denies any aggravating factor. She states that when she woke up this morning the pain was more intense. She states it hurts to sit so she came to the emergency department. Denies fevers, numbness and tingling down the extremity, weakness, bladder bowel incontinence and saddle anesthesia. Past History - Travel Traveled outside of the country in the last 30 days: No Close contact w/someone who was outside of country & ill: No - Past Medical History Allergies/Adverse Reactions: Allergies Allergy/AdvReac Type Severity Reaction Status Date / Time No Known Drug Allergies Allergy Verified 01/02/18 19:42 Home Medications: Ambulatory Orders Lisinopril [Prinivil -] 40 mg PO DAILY #0 tablet 05/26/13 Montelukast Na [Singulair -] 10 mg PO HS #0 tablet 05/26/13 Omeprazole [Prilosec (RX)] 40 mg PO DAILY #0 capsule. 05/26/13 Aspirin Coated [Ecotrin -] 81 mg PO DAILY tablet.ec 10/18/14 Clopidogrel Bisulfate [Plavix -] 75 mg PO DAILY 03/06/15 Nitroglycerin Sublingual [Nitrostat -] 0.4 mg SL Q5M PRN #30 tab 03/07/15 Simvastatin [Zocor -] 40 mg PO HS 03/07/15 Metoprolol Succinate [Toprol XL -] 50 mg PO DAILY 09/03/15 Albuterol Sulfate Inhaler - [Ventolin HFA Inhaler -] 1 - 2 inh PO QID PRN Gabapentin 300 mg PO TID 05/21/16 Isosorbide Mononitrate [Imdur -] 60 mg PO DAILY 05/21/16 Ranolazine [Ranexa] 500 mg PO BID 01/18/17 Amlodipine Besylate 2.5 mg PO DAILY 10/26/17 Levothyroxine Sodium [Synthroid] 137 mcg PO DAILY 10/26/17 Metformin HCl [Metformin HCl ER] 500 mg PO DAILY 10/26/17 Cyclobenzaprine HCl [Flexeril -] 10 mg PO HS #10 tablet 01/02/18 Anemia: Yes ( A CHILD) Asthma: Yes (NO RECENT ATTACK) Cancer: No Cardiac Disorders: Yes (CORONARY ARTERIOSCLEROSIS) CVA: No COPD: No CHF: No Dementia: No Diabetes: Yes (2011) GI Disorders: Yes (GERD,H/O ADENOMATOUS POLYP OF COLON) Disorders: No HTN: Yes Hypercholesterolemia: Yes Liver Disease: No Seizures: No Thyroid Disease: Yes (HYPOTHYROIDISM) - Surgical History Abdominal Surgery: No Appendectomy: No Cardiac Surgery: Yes (STENT PLACED SEPTEMBER 2014) Cholecystectomy: No Lung Surgery: No Neurologic Surgery: No Orthopedic Surgery: Yes (LT KNEE REPLACEMENT) - Suicide/Smoking/Psychosocial Hx Smoking Status: No Smoking History: Former smoker Have you smoked in the past 12 months: No Number of Cigarettes Smoked Daily: 0 If you are a former smoker, when did you quit?: 40YRS Information on smoking cessation initiated: No Hx Alcohol Use: No Drug/Substance Use Hx: No Substance Use Type: None Hx Substance Use Treatment: No Review of Systems - Review of Systems Able to Perform ROS?: Yes Comments:: 01/02/18 20:11 CONSTITUTIONAL: Absent: fever, chills, diaphoresis, generalized weakness, malaise, loss of appetite HEENT: Absent: rhinorrhea, nasal congestion, throat pain, throat swelling, difficulty swallowing, mouth swelling, ear pain, eye pain, visual Changes CARDIOVASCULAR: Absent: chest pain, loss of consciousness, palpitations, irregular heart rate, peripheral edema RESPIRATORY: Absent: cough, shortness of breath, dyspnea with exertion, orthopnea, wheezing, stridor, hemoptysis GASTROINTESTINAL: Absent: abdominal pain, abdominal distension, nausea, vomiting, diarrhea, constipation, melena, hematochezia GENITOURINARY: Absent: dysuria, frequency, urgency, hesitancy, hematuria, flank pain, genital pain MUSCULOSKELETAL: Present: R lower back pain Absent: arthralgia, joint swelling SKIN: Absent: rash, itching, pallor HEMATOLOGIC/IMMUNOLOGIC: Absent: easy bleeding, easy bruising, lymphadenopathy, frequent infections ENDOCRINE: Absent: unexplained weight gain, unexplained weight loss, heat intolerance, cold intolerance NEUROLOGIC: Absent: headache, focal weakness or paresthesias, dizziness, unsteady gait, seizure, mental status changes, bladder or bowel incontinence PSYCHIATRIC: Absent: anxiety, depression, suicidal or homicidal ideation, hallucinations. Is the patient limited Thai proficient: No *Physical Exam - Vital Signs Last Vital Signs Temp Pulse Resp BP Pulse Ox 97.9 F 113 H 17 164/104 100 01/02/18 19:35 01/02/18 19:35 01/02/18 19:35 01/02/18 19:35 01/02/18 19:35 - Physical Exam Comments: 01/02/18 20:11 GENERAL: Well developed, well nourished. Awake and alert. No acute distress. HEENT: Normocephalic, atraumatic. PERRLA, EOMI. No conjunctival pallor. Sclera are non- icteric. Moist mucous membranes. Oropharynx is clear. NECK: Supple. Full ROM. No JVD. Carotid pulses 2+ and symmetric, without bruits. No thyromegaly. No lymphadenopathy. MUSCULOSKELETAL R lower back pain with palpable spasm to the R paraspinous muscles at the level of L3. Normal range of motion at all joints. No bony deformities or tenderness. No CVA tenderness. EXTREMITIES: No cyanosis. No clubbing. No edema. No calf tenderness. SKIN: Warm and dry. Normal capillary refill. No rashes. No jaundice. NEUROLOGICAL: Alert, awake, appropriate. Cranial nerves 2-12 intact. No deficits to light touch and temperature in face, upper extremities and lower extremities. No motor deficits in the in face, upper extremities and lower extremities. Normoreflexic in the upper and lower extremities. Normal speech. Toes are down- going bilaterally. Gait is normal without ataxia. Medical Decision Making - Medical Decision Making 01/02/18 21:12 Patient is a 67-year-old female who presents to emergency department for right lower back pain for two days -Exam: no gross neurological findings. Strength 5/5 b/l. Normal reflexes b/l. -TTP of the R lower back with palpable spasm -Pt with relief of symptoms from toradol and flexeril -Most likely a muscle spasm -DC home with supportive therapy, and PCP follow up -Return precautions given. Pt understands all dc instructions and all questions were answered. *DC/Admit/Observation/Transfer Diagnosis at time of Disposition: Low back pain Qualifiers: Chronicity: acute Back pain laterality: right Sciatica presence: without sciatica Qualified Code(s): M54.5 - Low back pain - Discharge Dispostion Disposition: HOME Condition at time of disposition: Stable Decision to Admit order: No - Referrals Referrals: Nii Carrington PA [Primary Care Provider] - - Patient Instructions Printed Discharge Instructions: DI for Low Back Pain Additional Instructions: You have low back pain from a muscle spasm You may take tylenol tonight before you go to bed Tomorrow take tylenol 500mg every 4 hours. Continue to take it for the next 4 days Take the flexeril before bed. Do not drive after taking the medication as it may make you sleepy You may use heating pad to the back Follow up with your primary care doctor this week Return to the ED for worsening pain, fevers, loss of bladder/bowel function, numbness in the groin region or if you have any changes in your symptoms - Post Discharge Activity
[2018-01-02] MEDS ORDERED: KETOROLAC TROMETHAMINE 60 MG/2 ML VIAL IM ONE (20:19)
[2018-01-02] MEDS ORDERED: CYCLOBENZAPRINE HCL 10 MG TABLET (FP) PO ONE (20:19)
[2018-01-02] MEDS ORDERED: CYCLOBENZAPRINE HCL 10 MG TABLET (FP) ONE (20:22)
[2018-01-02] MEDS ORDERED: KETOROLAC TROMETHAMINE 60 MG/2 ML VIAL ONE (20:22)
== END 2018-01-02 21:10 | disposition home or self-care (01) ==
LOC: JER 19:24 → JERFT 19:24
PROC: 3E0233Z Introduction of Anti-inflammatory into Muscle, Percutaneous Approach (ICD-10-PCS; principal; 2018-01-02)
DX: M54.5 Low back pain (principal); I25.10 Atherosclerotic heart disease of native coronary artery without angina pectoris; Z95.5 Presence of coronary angioplasty implant and graft; I10 Essential (primary) hypertension; E11.9 Type 2 diabetes mellitus without complications; Z79.84 Long term (current) use of oral hypoglycemic drugs; E78.00 Pure hypercholesterolemia, unspecified; E03.9 Hypothyroidism, unspecified; Z96.652 Presence of left artificial knee joint
CPT/HCPCS: 99281-25

== ENCOUNTER 2018-06-05 11:35 | Emergency (ER) | payer OTHER | END 2018-06-05 14:38 | disposition home or self-care (01) | LOC: JERFT 11:35 ==

== ENCOUNTER 2018-06-28 15:30 | Emergency (ER) | payer OTHER ==
[2018-06-28 15:38] VITALS: BP 138/54; PULSE 88; TEMP 98.4; BMI 44.8
--- NOTE | 2018-06-28 15:40 | PDOC ---
Rapid Medical Evaluation Time Seen by Provider: 06/28/18 15:34 Medical Evaluation: Allergies Allergy/AdvReac Type Severity Reaction Status Date / Time No Known Drug Allergies Allergy Verified 06/05/18 12:38 06/28/18 15:34 I have performed a brief in-person evaluation of this patient. The patient presents with a chief complaint of: R upper toothache x several days w/ R facial swelling last night. No f/c. Took 1 dose of penicillin last night. No recent dental procedures, trauma. H/o CAD w/ stents, NIDDM, HTN Pertinent physical exam findings:Stable w/ R facial swelling w/ ttp/swelling to gumline surrounding R upper 1st premolar I have ordered the following:nothing The patient will proceed to the ED for further evaluation. Discharge Disposition - Diagnosis Pain, dental - Referrals - Patient Instructions - Post Discharge Activity
--- NOTE | 2018-06-28 16:13 | PDOC ---
History of Present Illness - General Chief Complaint: Toothache Stated Complaint: SWOLLEN FACE Time Seen by Provider: 06/28/18 15:34 History Source: Patient Exam Limitations: Clinical Condition - History of Present Illness Initial Comments: 06/28/18 16:15 Patient with history of CAD with stents, diabetes on metformin and hypertension presented with complaint of 4 day history of pain to right upper tooth with bleeding from gum line from right upper tooth and right-sided facial swelling since yesterday. Patient reported taking home penicillin one-time dose but does not know the dosage. Patient reports she was told campo she will need to distraction in the right side of premolars but hasn't had Extraction done. Denies fever, chills, choking sensation. Timing/Duration: 24 hours Past History - Past Medical History Allergies/Adverse Reactions: Allergies Allergy/AdvReac Type Severity Reaction Status Date / Time No Known Drug Allergies Allergy Verified 06/28/18 15:38 Home Medications: Ambulatory Orders Lisinopril [Prinivil -] 40 mg PO DAILY #0 tablet 05/26/13 Montelukast Na [Singulair -] 10 mg PO HS #0 tablet 05/26/13 Omeprazole [Prilosec (RX)] 40 mg PO DAILY #0 capsule. 05/26/13 Aspirin Coated [Ecotrin -] 81 mg PO DAILY tablet.ec 10/18/14 Clopidogrel Bisulfate [Plavix -] 75 mg PO DAILY 03/06/15 Nitroglycerin Sublingual [Nitrostat -] 0.4 mg SL Q5M PRN #30 tab 03/07/15 Simvastatin [Zocor -] 40 mg PO HS 03/07/15 Metoprolol Succinate [Toprol XL -] 50 mg PO DAILY 09/03/15 Albuterol Sulfate Inhaler - [Ventolin HFA Inhaler -] 1 - 2 inh PO QID PRN Gabapentin 300 mg PO TID 05/21/16 Isosorbide Mononitrate [Imdur -] 60 mg PO DAILY 05/21/16 Ranolazine [Ranexa] 500 mg PO BID 01/18/17 Amlodipine Besylate 2.5 mg PO DAILY 10/26/17 Levothyroxine Sodium [Synthroid] 137 mcg PO DAILY 10/26/17 metFORMIN HCL [Metformin ER Osmotic] 500 mg PO DAILY 10/26/17 Cyclobenzaprine HCl [Flexeril -] 10 mg PO HS #10 tablet 01/02/18 Acetaminophen [Tylenol] 650 mg PO ONCE 06/05/18 Cyclobenzaprine HCl [Flexeril 10 mg] 10 mg PO HS PRN #10 tablet 06/05/18 Methylprednisolone [Medrol Dose Adrian] 4 mg PO ASDIR #21 tablet 06/05/18 Clindamycin [Cleocin -] 300 mg PO TID #21 capsule 06/28/18 Methylprednisolone [Medrol Dose Adrian] 4 mg PO ASDIR #21 tablet 06/28/18 Anemia: Yes ( A CHILD) Asthma: Yes (NO RECENT ATTACK) Cancer: No Cardiac Disorders: Yes (CORONARY ARTERIOSCLEROSIS) CVA: No COPD: No CHF: No Dementia: No Diabetes: Yes (2011) GI Disorders: Yes (GERD,H/O ADENOMATOUS POLYP OF COLON) Disorders: No HTN: Yes Hypercholesterolemia: Yes Liver Disease: No Seizures: No Thyroid Disease: Yes (HYPOTHYROIDISM) - Surgical History Abdominal Surgery: No Appendectomy: No Cardiac Surgery: Yes (STENT PLACED SEPTEMBER 2014) Cholecystectomy: No Lung Surgery: No Neurologic Surgery: No Orthopedic Surgery: Yes (LT KNEE REPLACEMENT) - Suicide/Smoking/Psychosocial Hx Smoking Status: No Smoking History: Never smoked Have you smoked in the past 12 months: No Number of Cigarettes Smoked Daily: 0 If you are a former smoker, when did you quit?: 40YRS Hx Alcohol Use: No Drug/Substance Use Hx: No Substance Use Type: None Hx Substance Use Treatment: No Review of Systems - Review of Systems Able to Perform ROS?: Yes Is the patient limited Ghanaian proficient: No Constitutional: No: Chills, Fever HEENTM: Yes: See HPI, Dental Problems, Other (right upper teeth pain with bleeding gum and swelling to right side of face). No: Throat Pain, Throat Swelling, Difficulty Swallowing Respiratory: No: Symptoms reported Cardiac (ROS): No: Symptoms Reported ABD/GI: No: Nausea, Vomiting Integumentary: Yes: See HPI, Other (swelling to right side of cheeck) Neurological: No: Headache, Dizziness All Other Systems: Reviewed and Negative *Physical Exam - Vital Signs Last Vital Signs Temp Pulse Resp BP Pulse Ox 98.4 F 88 18 138/54 L 98 06/28/18 15:34 06/28/18 15:34 06/28/18 15:34 06/28/18 15:34 06/28/18 15:34 - Physical Exam Comments: 06/28/18 16:18 GENERAL: Well developed, well nourished. Awake and alert. No acute distress. HEENT: Multiple decayed teeth to right lower premolars and to upper premolars with scant bleeding from gum line. No active bleeding from teeth. Mild swelling to right cheek area. Normocephalic, atraumatic. PERRLA, EOMI. No conjunctival pallor. Sclera are non-icteric. Moist mucous membranes. NECK: Supple. Full ROM. CARDIOVASCULAR: Regular rate and rhythm. No murmurs, rubs, or gallops. Distal pulses are 2+ and symmetric. PULMONARY: No evidence of respiratory distress. Lungs clear to auscultation bilaterally. No wheezing, rales or rhonchi. ABDOMINAL: Soft. Non-tender. Non-distended. No rebound or guarding. No organomegaly. Normoactive bowel sounds. MUSCULOSKELETAL Normal range of motion at all joints. SKIN: Warm and dry. Mild swelling to right cheek area. No erythema to skin. No rashes. No jaundice. NEUROLOGICAL: Alert, awake, appropriate. Gait is normal without ataxia. PSYCHIATRIC: Cooperative. Good eye contact. Appropriate mood General Appearance: Yes: Nourished, Appropriately Dressed. No: Apparent Distress Moderate Sedation - Procedure Monitoring Vital Signs: Procedure Monitoring Vital Signs Temperature 98.4 F 06/28/18 15:34 Pulse Rate 88 06/28/18 15:34 Respiratory Rate 18 06/28/18 15:34 Blood Pressure 138/54 L 06/28/18 15:34 O2 Sat by Pulse Oximetry (%) 98 06/28/18 15:34 Medical Decision Making - Medical Decision Making 06/28/18 16:20 Patient with history of CAD, diabetes hypertension with poor dentition presented with complaint of right upper tooth pain, bleeding from gum line and swelling to right side of face. Exam significant for multiple decayed teeth with mild gum bleeding consistent with periodontitis. Patient advised she will need immediate dental follow-up. Patient discharge on clindamycin for antibiotic effect and medrol-adrian for anti- inflammatory with dental follow-up. *DC/Admit/Observation/Transfer Diagnosis at time of Disposition: Pain, dental, Periodontal disease, Periodontitis - Discharge Dispostion Disposition: HOME Condition at time of disposition: Stable Decision to Admit order: No - Prescriptions Prescriptions: Clindamycin [Cleocin -] 300 mg PO TID #21 capsule Methylprednisolone [Medrol Dose Adrian] 4 mg PO ASDIR #21 tablet - Referrals Referrals: Nii Carrington PA [Primary Care Provider] - - Patient Instructions Printed Discharge Instructions: DI for Tooth Decay, DI for Dental Pain Additional Instructions: take medications as prescribed. Follow-up with oral surgeon as soon as possible as discussed - Post Discharge Activity
== END 2018-06-28 16:16 | disposition home or self-care (01) ==
LOC: JERFT 15:30
DX: K05.6 Periodontal disease, unspecified (principal); K05.30 Chronic periodontitis, unspecified; I25.10 Atherosclerotic heart disease of native coronary artery without angina pectoris; I10 Essential (primary) hypertension; Z95.5 Presence of coronary angioplasty implant and graft; E11.9 Type 2 diabetes mellitus without complications; Z79.84 Long term (current) use of oral hypoglycemic drugs; E78.00 Pure hypercholesterolemia, unspecified; E03.9 Hypothyroidism, unspecified; K21.9 Gastro-esophageal reflux disease without esophagitis; Z87.19 Personal history of other diseases of the digestive system; Z87.09 Personal history of other diseases of the respiratory system; Z86.2 Personal history of diseases of the blood and blood-forming organs and certain disorders involving the immune mechanism
CPT/HCPCS: 99281-25

== ENCOUNTER 2019-01-29 19:30 | Emergency (ER) | payer OTHER ==
[2019-01-29] MEDS ORDERED: ASPIRIN 81 MG CHEWABLE TABLETS PO ONE (20:03)
--- NOTE | 2019-01-29 20:03 | PDOC ---
Rapid Medical Evaluation Time Seen by Provider: 01/29/19 20:00 Medical Evaluation: Allergies Allergy/AdvReac Type Severity Reaction Status Date / Time No Known Drug Allergies Allergy Verified 06/28/18 15:38 01/29/19 20:00 CC: Left sided chest pain releived after NTG x2. PE: Skin cool and moist. Lungs CTAB. RRR. No m/r/g. Orders: cardiac w/u Patient is to proceed to ER for further evaluation. Discharge Disposition - Diagnosis Chest pain - Referrals - Patient Instructions - Post Discharge Activity
[2019-01-29 20:04] VITALS: TEMP 98.8; BMI 42.5
--- NOTE | 2019-01-29 20:18 | PDOC ---
History of Present Illness - General Chief Complaint: Chest Pain Stated Complaint: CHEST PAINS Time Seen by Provider: 01/29/19 20:00 Past History - Past Medical History Allergies/Adverse Reactions: Allergies Allergy/AdvReac Type Severity Reaction Status Date / Time No Known Drug Allergies Allergy Verified 06/28/18 15:38 Home Medications: Ambulatory Orders Lisinopril [Prinivil -] 40 mg PO DAILY #0 tablet 05/26/13 Montelukast Na [Singulair -] 10 mg PO HS #0 tablet 05/26/13 Omeprazole [Prilosec (RX)] 40 mg PO DAILY #0 capsule. 05/26/13 Aspirin Coated [Ecotrin -] 81 mg PO DAILY tablet.ec 10/18/14 Clopidogrel Bisulfate [Plavix -] 75 mg PO DAILY 03/06/15 Nitroglycerin Sublingual [Nitrostat -] 0.4 mg SL Q5M PRN #30 tab 03/07/15 Simvastatin [Zocor -] 40 mg PO HS 03/07/15 Metoprolol Succinate [Toprol XL -] 50 mg PO DAILY 09/03/15 Albuterol Sulfate Inhaler - [Ventolin HFA Inhaler -] 1 - 2 inh PO QID PRN Gabapentin 300 mg PO TID 05/21/16 Isosorbide Mononitrate [Imdur -] 60 mg PO DAILY 05/21/16 Ranolazine [Ranexa] 500 mg PO BID 01/18/17 Amlodipine Besylate 2.5 mg PO DAILY 10/26/17 Levothyroxine Sodium [Synthroid] 137 mcg PO DAILY 10/26/17 metFORMIN HCL [Metformin ER Osmotic] 500 mg PO DAILY 10/26/17 Cyclobenzaprine HCl [Flexeril -] 10 mg PO HS #10 tablet 01/02/18 Acetaminophen [Tylenol] 650 mg PO ONCE 06/05/18 Cyclobenzaprine HCl [Flexeril 10 mg] 10 mg PO HS PRN #10 tablet 06/05/18 Methylprednisolone [Medrol Dose Adrian] 4 mg PO ASDIR #21 tablet 06/05/18 Clindamycin [Cleocin -] 300 mg PO TID #21 capsule 06/28/18 Methylprednisolone [Medrol Dose Adrian] 4 mg PO ASDIR #21 tablet 06/28/18 Anemia: Yes ( A CHILD) Asthma: Yes (NO RECENT ATTACK) Cancer: No Cardiac Disorders: Yes (CORONARY ARTERIOSCLEROSIS) CVA: No COPD: No CHF: No Dementia: No Diabetes: Yes (2011) GI Disorders: Yes (GERD,H/O ADENOMATOUS POLYP OF COLON) Disorders: No HTN: Yes Hypercholesterolemia: Yes Liver Disease: No Seizures: No Thyroid Disease: Yes (HYPOTHYROIDISM) - Surgical History Abdominal Surgery: No Appendectomy: No Cardiac Surgery: Yes (STENT PLACED SEPTEMBER 2014) Cholecystectomy: No Lung Surgery: No Neurologic Surgery: No Orthopedic Surgery: Yes (LT KNEE REPLACEMENT) - Psycho Social/Smoking Cessation Hx Smoking Status: No Smoking History: Never smoked Have you smoked in the past 12 months: No Number of Cigarettes Smoked Daily: 0 If you are a former smoker, when did you quit?: 40YRS Hx Alcohol Use: No Drug/Substance Use Hx: No Substance Use Type: None Hx Substance Use Treatment: No *Physical Exam - Vital Signs Last Vital Signs Temp Pulse Resp BP Pulse Ox 98.8 F 71 19 149/71 98 01/29/19 20:01 01/29/19 20:01 01/29/19 20:01 01/29/19 20:01 01/29/19 20:01 Heart Score/ECG Review - History History: Moderately suspicious - Electrocardiogram EKG: Normal - Age Age: >/= 65 - Risk Factors Risk Factors Heart Score: Yes Hx Hypercholesterolemia, Yes Hx Hypertension, Yes Hx Diabetes Based on the list above the patient has:: >/=3 risk factors or Hx atherosclerotic disease - Troponin Troponin: </= normal limit - Score Heart Score - Total: 5 ED Treatment Course - LABORATORY CBC & Chemistry Diagram: 01/29/19 21:20 01/29/19 21:20 Medical Decision Making - Medical Decision Making HPI: 68yo F with PMH of CAD s/p 2 stents, HTN, HLD, DM presenting with chest pain. Patient states the pain started about 1 hour prior to arrival while she was standing at a meeting. She has had chest pain for the past couple days which she attributed to stress, but this pain today was rated 30/10 and describes as "it hurt", radiating to her back. Reporting associated nausea, diaphoresis, and shortness of breath, but no vomiting. Took one tablet of nitroglycerin which did not provider her relief, waited five minutes, and took another tablet of nitroglycerin. Started feeling relief when she got to the ED, pain is now rated 7/10. [place] this way two years ago when she was ultimately sent to [facility] for a cardiac catheterization and stent placement. Last saw her maintenance machinist in June and had a stress test that was "okay." Denies hemoptysis, no recent surgical history, no recent immobilization, no hormone use, no history of DVT or PE. No fevers or chills. PCP: Dr. Myles Cardio: Dr. Werner ROS: Constitutional: no fever, no chills HEENT: no throat pain, no dysphagia Cardiovascular: +chest pain, no palpitations Respiratory: no cough, +shortness of breath Gastrointestinal: no abdominal pain, +nausea Genitourinary: no dysuria, no hematuria Musculoskeletal: no myalgia, no arthralgia Skin: no rash, no itching Neurologic: no headache, no weakness PE: General: Awake, alert, and fully oriented, in no acute distress Head: No signs of trauma Eyes: EOMI, sclera anicteric ENT: Moist mucus membranes Neck: Normal ROM, supple Lungs: Lungs clear, Normal breath sounds Cardio: Regular rhythm, S1 and S2 present Abdomen: Soft, nontender Extremities: Normal range of motion, Distal pulses present, No calf tenderness SKIN: Warm, Dry, normal turgor Neurologic: Cranial nerves II through XII grossly intact. Normal speech ED Course/MDM: DDX including but not limited to ACS, PE, PNA, anemia, metabolic derangement HEART score is at least 5 given history, risk factors, and age Labs, EKG, CXR ASA EKG at 19:36: rate 72, QTc 438, NSR 01/29/19 20:18 Patient still with 5/10 chest pain, ordered morphine and SL nitro Page to patient's maintenance machinist, 01/29/19 23:48 Patient still with 5/10 pain, we will give another SL nitro 01/30/19 00:55 Patient still with chest pain; she is amenable to transfer to a cardiac cath center, [facility] for unstable angina 01/30/19 01:13 EKGat 1:15: rate 52, QTc 424, sinus bradycardia, flattening of t waves in V3-V6 when compared to previous EKG Discussed case with Dr. Ford at [facility] who accepted patient for transfer We will send the patient's facesheet to [phone] 01/30/19 01:30 Patient signed consent for transfer Discussed case with LOLIS Estrella at [place]. He does not recommend heparin or nitro drip at this time. If patient has worsening pain or ST elevations on EKG, we can start a nitro drip. Patient left the department via EMS 01/30/19 20:45 CXR, as read by radiology: "The trachea is normal in size is not deviated. Mildly uncoiled thoracic aorta. The cardiac silhouette is not enlarged. The pulmonary vasculature pattern is normal. The lungs are well aerated, without evidence of active pulmonary disease, pleural effusion or pneumothorax. No bulky mediastinal mass or hilar adenopathy is noted. The visualized osseous structure and soft tissues are normal. Impression: No evidence of active pulmonary disease. " Discharge - Discharge Information Problems reviewed: Yes Clinical Impression/Diagnosis: Chest pain Qualifiers: Chest pain type: unspecified Qualified Code(s): R07.9 - Chest pain, unspecified Condition: Guarded Disposition: TRANSFER ACUTE CARE/OTHER HOSP - Follow up/Referral Referrals: Nii Carrington PA [Primary Care Provider] - - Patient Discharge Instructions - Post Discharge Activity - Transfer to Acute Care Facility Receiving Facility Name: [facility]..[facility]
--- NOTE | 2019-01-29 20:22 | PDOC ---
*Physical Exam - Vital Signs Last Vital Signs Temp Pulse Resp BP Pulse Ox 98.8 F 71 19 149/71 98 01/29/19 20:01 01/29/19 20:01 01/29/19 20:01 01/29/19 20:01 01/29/19 20:01 Medical Decision Making - Medical Decision Making 01/29/19 20:21 Patient seen by the advanced practice provider under my direct supervision. Ancillary testing reviewed as necessary. I agree with plan as outlined by the advanced practice provider. Discharge - Discharge Information Clinical Impression/Diagnosis: Chest pain - Follow up/Referral - Patient Discharge Instructions - Post Discharge Activity
[2019-01-29] MEDS ORDERED: ASPIRIN 81 MG CHEWABLE TABLETS ONE (20:29)
[2019-01-29 21:47] LABS: EOS % 1.5 % (0-4.5); HEMATOCRIT 35.8 % (32.4-45.2); HEMOGLOBIN 11.6 GM/dL (10.7-15.3); LYMPH % 23.9 % (8-40); MCHC 32.4 g/dl (32.0-36.0); MEAN CELL VOLUME 86.3 fl (80-96); MEAN PLT VOLUME 8.4 fl (7.5-11.1); MONO % 5.8 % (3.8-10.2); NEUT % 67.8 % (42.8-82.8); PLATELET COUNT 338 K/MM3 (134-434); RBC 4.14 M/mm3 (3.60-5.2); RDW 14.3 % (11.6-15.6); WHITE BLOOD COUNT 9.6 K/mm3 (4.0-10.0)
[2019-01-29 21:58] LABS: INR 1.06 (0.83-1.09); PROTHROMBIN TIME (PATIENT) 12.5 SEC (9.7-13.0)
[2019-01-29 22:05] LABS: BILIRUBIN,TOTAL 0.2 mg/dL (0.2-1); BLOOD UREA NITROGEN 15.9 mg/dL (7-18); CALCIUM 10.2 mg/dL (8.5-10.1); MAGNESIUM 1.7 mg/dL (1.8-2.4); POTASSIUM 4.2 mmol/L (3.5-5.1)
[2019-01-29] MEDS ORDERED: NITROGLYCERIN SUBLINGUAL 1/200 0.3 MG BTL SL ONE (23:45)
[2019-01-29] MEDS ORDERED: morphine CARPU-JECT 4 MG/1 ML DISP.SYRIN IVPUSH ONE (23:46)
--- NOTE | 2019-01-29 23:51 | PDOC ---
Attending Attestation - Resident Resident Name: LindaMaia - ED Attending Attestation I have performed the following: I have examined & evaluated the patient, The case was reviewed & discussed with the resident, I agree w/resident's findings & plan - HPI HPI: 01/29/19 23:38 see resident hpi - Physicial Exam PE: 01/29/19 23:38 agree with resident exam - Medical Decision Making 01/29/19 23:38 68 yo female with cp, HS of 5 CP improved but still at 5/10 post SL nitro x 2 and asa plan for continued nitrates, morphine, beta blockade, will discuss heparin with cards and possible transfer
[2019-01-30] MEDS ORDERED: NITROGLYCERIN SUBLINGUAL 1/150 0.4 MG TAB ONE (00:20)
[2019-01-30] MEDS ORDERED: morphine SULFATE 4 MG/ML VIAL ONE (00:21)
[2019-01-30] MEDS ORDERED: NITROGLYCERIN SUBLINGUAL 1/150 0.4 MG TAB SL ONE ×2 (00:41→00:56)
[2019-01-30 00:57] LABS: ACTIVATED PTT 41.8 SECONDS (25.2-36.5)
--- NOTE | 2019-01-30 01:10 | PN ---
Teaching Attending Note Name of Resident: Titi Cohen ATTENDING PHYSICIAN STATEMENT I saw and evaluated the patient. I reviewed the resident's note and discussed the case with the resident. I agree with the resident's findings and plan as documented. SUBJECTIVE: OBJECTIVE: HEENT: No Jaundice, eye redness or discharge, PERRLA, EOMI. Normocephalic, atraumatic. External ears are normal and hearing is grossly intact. No nasal discharge. Neck: Supple, nontender. No palpable adenopathy or thyromegaly. No JVD Chest: Good effort. Clear to auscultation and percussion. Heart: Regular. No S3, rub or murmur Abdomen: Not distended, soft, nontender and no HSM. No rebound or guarding. Normal bowel sounds. Ext: Peripheral pulses intact. No leg edema. Skin: Warm and dry. No petechiae, rash or ecchymosis. Neuro: Alert. Oriented x3. CN 2-12 grossly intact. Sensation grossly intact in all four extremities and DTR are symmetric. Psych: Appropriate mood and affect. Good insight. Will continue comprehensive care for all of patients comorbid conditions. Hypoalbuminemia - Possibly due to combined effects of malnutrition and inflammation associated with comorbid chronic conditions. Will ensure adequate dietary protein intake and also consult allied health instructor. DM For now, we will hold the home diabetes drugs and implement sliding scale insulin regimen. Provide comprehensive diabetes care with patient teaching and counseling about the importance of adherence to prescribed diabetes regimen, euglycemia, eye care and foot care. Tobacco Use Counseled on risks associated with tobacco use. We will provide patient all the necessary assistance to facilitate smoking cessation and prescribe Nicotine patch. CKD/WALDEMAR - Will consult nephrology and avoid nephrotoxic agents such as NSAIDS, aminoglycosides, contrast dyes and certain Alternative medicine products. Anemia -Do basic anemia work up including serial stool guaiacs, reticulocyte count and iron studies. Would benefit from Procrit therapy once iron replete. Polypharmacy - Will liaise with patient's PCP to discontinue medications that are not absolutely essential. Obesity Counseled on the risks associated with obesity. Will provide patient all the necessary assistance, counseling and positive reinforcement to facilitate weight loss. Consult allied health instructor. Alcohol abuse - Implement [facility] alcohol withdrawal protocol and do neurochecks. Implement seizure, fall and aspiration precautions. Treat with thiamine and folic acid and monitor electrolytes (Ca,Mg,K,P). Counseled patient about abstaining from alcohol. Will consult permit specialist and refer to alcohol detox upon discharge. Hypertension - Restart suitable outpatient antihypertensive drugs when clinically appropriate. Revise regimen to ensure [id number] excellent BP control and counseling services manager patient on the injurious effects of uncontrolled hypertension. Nonpharmacologic measures to control hypertension like weight loss , salt restriction and exercise discussed. Importance of adherence to treatment regimen and attainment of normotension emphasized. DVT prophylaxis - Lovenox 40 mg SQ q 24 hours. Heparin 5000u sq tid. Advance directives - Full code ASSESSMENT AND PLAN: HEENT: No Jaundice, eye redness or discharge, PERRLA, EOMI. Normocephalic, atraumatic. External ears are normal and hearing is grossly intact. No nasal discharge. Neck: Supple, nontender. No palpable adenopathy or thyromegaly. No JVD Chest: Good effort. Clear to auscultation and percussion. Heart: Regular. No S3, rub or murmur Abdomen: Not distended, soft, nontender and no HSM. No rebound or guarding. Normal bowel sounds. Ext: Peripheral pulses intact. No leg edema. Skin: Warm and dry. No petechiae, rash or ecchymosis. Neuro: Alert. Oriented x3. CN 2-12 grossly intact. Sensation grossly intact in all four extremities and DTR are symmetric. Psych: Appropriate mood and affect. Good insight. Will continue comprehensive care for all of patients comorbid conditions. Hypoalbuminemia - Possibly due to combined effects of malnutrition and inflammation associated with comorbid chronic conditions. Will ensure adequate dietary protein intake and also consult allied health instructor. DM For now, we will hold the home diabetes drugs and implement sliding scale insulin regimen. Provide comprehensive diabetes care with patient teaching and counseling about the importance of adherence to prescribed diabetes regimen, euglycemia, eye care and foot care. Tobacco Use Counseled on risks associated with tobacco use. We will provide patient all the necessary assistance to facilitate smoking cessation and prescribe Nicotine patch. CKD/WALDEMAR - Will consult nephrology and avoid nephrotoxic agents such as NSAIDS, aminoglycosides, contrast dyes and certain Alternative medicine products. Anemia -Do basic anemia work up including serial stool guaiacs, reticulocyte count and iron studies. Would benefit from Procrit therapy once iron replete. Polypharmacy - Will liaise with patient's PCP to discontinue medications that are not absolutely essential. Obesity Counseled on the risks associated with obesity. Will provide patient all the necessary assistance, counseling and positive reinforcement to facilitate weight loss. Consult allied health instructor. Alcohol abuse - Implement [facility] alcohol withdrawal protocol and do neurochecks. Implement seizure, fall and aspiration precautions. Treat with thiamine and folic acid and monitor electrolytes (Ca,Mg,K,P). Counseled patient about abstaining from alcohol. Will consult permit specialist and refer to alcohol detox upon discharge. Hypertension - Restart suitable outpatient antihypertensive drugs when clinically appropriate. Revise regimen to ensure [id number] excellent BP control and counseling services manager patient on the injurious effects of uncontrolled hypertension. Nonpharmacologic measures to control hypertension like weight loss , salt restriction and exercise discussed. Importance of adherence to treatment regimen and attainment of normotension emphasized. DVT prophylaxis - Lovenox 40 mg SQ q 24 hours. Heparin 5000u sq tid. Advance directives - Full code
[2019-01-30 02:28] VITALS: PULSE 51
[2019-01-30 03:59] VITALS: BP 140/70
--- NOTE | 2019-01-30 10:04 | EKG ---
Test Reason : Blood Pressure : / mmHG Vent. Rate : 053 BPM Atrial Rate : 053 BPM P-R Int : 164 ms QRS Dur : 078 ms QT Int : 452 ms P-R-T Axes : 051 012 022 degrees QTc Int : 424 ms SINUS BRADYCARDIA NONSPECIFIC T WAVE ABNORMALITY ABNORMAL ECG WHEN COMPARED WITH ECG OF 29-JAN-2019 19:36, NO SIGNIFICANT CHANGE WAS FOUND Confirmed by MD DIMITRIOS, MAYCOL ([id number]) on 01/30/2019 10:03:45 AM Also confirmed by Pavan Wills MD ([id number]) on 01/30/2019 10:03:55 AM Referred By: Confirmed By:Pavan Wills MD
--- NOTE | 2019-01-30 10:04 | EKG ---
Test Reason : Blood Pressure : / mmHG Vent. Rate : 072 BPM Atrial Rate : 072 BPM P-R Int : 156 ms QRS Dur : 076 ms QT Int : 400 ms P-R-T Axes : 059 031 056 degrees QTc Int : 438 ms POOR DATA QUALITY, INTERPRETATION MAY BE ADVERSELY AFFECTED NORMAL SINUS RHYTHM NORMAL ECG Confirmed by Pavan Wills MD ([id number]) on 01/30/2019 10:04:35 AM Referred By: Confirmed By:Pavan Wills MD
== END 2019-01-30 03:00 | disposition short-term general hospital (02) ==
LOC: JER 19:30
PROC: 3E033NZ Introduction of Analgesics, Hypnotics, Sedatives into Peripheral Vein, Percutaneous Approach (ICD-10-PCS; principal; 2019-01-29)
DX: R07.9 Chest pain, unspecified (principal); I25.10 Atherosclerotic heart disease of native coronary artery without angina pectoris; I10 Essential (primary) hypertension; Z95.5 Presence of coronary angioplasty implant and graft; E78.00 Pure hypercholesterolemia, unspecified; E03.9 Hypothyroidism, unspecified; E11.9 Type 2 diabetes mellitus without complications; Z79.84 Long term (current) use of oral hypoglycemic drugs; K21.9 Gastro-esophageal reflux disease without esophagitis; Z86.2 Personal history of diseases of the blood and blood-forming organs and certain disorders involving the immune mechanism; Z87.09 Personal history of other diseases of the respiratory system
CPT/HCPCS: 36415; 71045-TC-FY; 80053; 82550; 82553; 83735; 84484; 85025; 85610; 85730; 93005; 93010; 96374; 99285-25

== ENCOUNTER 2019-06-10 06:54 | Emergency (ER) | payer OTHER ==
[2019-06-10 07:14] VITALS: BP 134/53; PULSE 89; TEMP 98.5; BMI 43.3
[2019-06-10] MEDS ORDERED: IBUPROFEN 600 MG TABLET (FP) PO ONE ×2 (08:38→08:43)
--- NOTE | 2019-06-10 08:43 | PDOC ---
History of Present Illness - General Chief Complaint: Injury Stated Complaint: LT ANKLE INJURY/RT SHOULDER PAIN Time Seen by Provider: 06/10/19 07:33 History Source: Patient Exam Limitations: No Limitations - History of Present Illness Initial Comments: 06/10/19 08:38 68-year-old female presents the ED with complaints of mechanical fall. Patient states was walking over his her son's room when she lost her balance causing her to land on her right shoulder. Patient also complaining of left ankle pain since then and states is hard to ambulateDue to the pain. Patient denies previous injury to the affected area. Patient states did not hit her head and had no LOC and has no other complaints at this time. Occurred: reports: just prior to arrival Severity: reports: mild Pain Location: reports: lower extremity, upper extremity Method of Injury: Yes: fall Loss of Consciousness: no loss of consciousness Associated Symptoms (Fall): trouble walking Past History - Travel Traveled outside of the country in the last 30 days: No Close contact w/someone who was outside of country & ill: No - Past Medical History Allergies/Adverse Reactions: Allergies Allergy/AdvReac Type Severity Reaction Status Date / Time No Known Drug Allergies Allergy Verified 06/10/19 07:12 Home Medications: Ambulatory Orders Lisinopril [Prinivil -] 40 mg PO DAILY #0 tablet 05/26/13 Montelukast Na [Singulair -] 10 mg PO HS #0 tablet 05/26/13 Omeprazole [Prilosec (RX)] 40 mg PO DAILY #0 capsule. 05/26/13 Aspirin Coated [Ecotrin -] 81 mg PO DAILY tablet.ec 10/18/14 Clopidogrel Bisulfate [Plavix -] 75 mg PO DAILY 03/06/15 Nitroglycerin Sublingual [Nitrostat -] 0.4 mg SL Q5M PRN #30 tab 03/07/15 Simvastatin [Zocor -] 40 mg PO HS 03/07/15 Metoprolol Succinate [Toprol XL -] 50 mg PO DAILY 09/03/15 Albuterol Sulfate Inhaler - [Ventolin HFA Inhaler -] 1 - 2 inh PO QID PRN Gabapentin 300 mg PO TID 05/21/16 Isosorbide Mononitrate [Imdur -] 60 mg PO DAILY 01/20/17 Ranolazine [Ranexa] 500 mg PO BID 01/18/17 Amlodipine Besylate 2.5 mg PO DAILY 10/26/17 Levothyroxine Sodium [Synthroid] 137 mcg PO DAILY 10/26/17 metFORMIN HCL [Metformin ER Osmotic] 500 mg PO DAILY 10/26/17 Cyclobenzaprine HCl [Flexeril -] 10 mg PO HS #10 tablet 01/02/18 Acetaminophen [Tylenol] 650 mg PO ONCE 06/05/18 Cyclobenzaprine HCl [Flexeril 10 mg] 10 mg PO HS PRN #10 tablet 06/05/18 Methylprednisolone [Medrol Dose Adrian] 4 mg PO ASDIR #21 tablet 06/05/18 Clindamycin [Cleocin -] 300 mg PO TID #21 capsule 06/28/18 Methylprednisolone [Medrol Dose Adrian] 4 mg PO ASDIR #21 tablet 06/28/18 Anemia: Yes ( A CHILD) Asthma: Yes (NO RECENT ATTACK) Cancer: No Cardiac Disorders: Yes (CORONARY ARTERIOSCLEROSIS) CVA: No COPD: No CHF: No Dementia: No Diabetes: Yes GI Disorders: Yes (GERD,H/O ADENOMATOUS POLYP OF COLON) Disorders: No HTN: Yes Hypercholesterolemia: Yes Liver Disease: No Seizures: No Thyroid Disease: Yes (HYPOTHYROIDISM) - Surgical History Abdominal Surgery: No Appendectomy: No Cardiac Surgery: Yes (STENT PLACED SEPTEMBER 2014) Cholecystectomy: No Lung Surgery: No Neurologic Surgery: No Orthopedic Surgery: Yes (LT KNEE REPLACEMENT) - Psycho Social/Smoking Cessation Hx Smoking Status: No Smoking History: Never smoked Have you smoked in the past 12 months: No Number of Cigarettes Smoked Daily: 0 If you are a former smoker, when did you quit?: 40YRS Hx Alcohol Use: No Drug/Substance Use Hx: No Substance Use Type: None Hx Substance Use Treatment: No Patient Lives Alone: No Lives with/in: spouse/SO Review of Systems - Review of Systems Able to Perform ROS?: Yes Constitutional: No: Symptoms Reported Musculoskeletal: Yes: Joint Pain, Joint Swelling (Left ankle) Integumentary: No: Symptoms Reported Neurological: No: Symptoms reported *Physical Exam - Vital Signs Last Vital Signs Temp Pulse Resp BP Pulse Ox 98.5 F 89 18 134/53 L 99 06/10/19 07:09 06/10/19 07:09 06/10/19 07:09 06/10/19 07:09 06/10/19 07:09 - Physical Exam General Appearance: Yes: Nourished, Appropriately Dressed. No: Apparent Distress Vascular Pulses: Doralis-Pedis (L): 2+ Extremity: positive: Normal Capillary Refill, Normal Inspection, Normal Range of Motion (Right upper extremity), Tender (Tender generally over rt shoulder ), Other (Noted generalized edema over the left malleolus tender throughout no visible deformity. No crepitus) Integumentary: positive: Normal Color, Warm, Moist Neurologic: positive: Motor Strength 5/5 (Able to dorsiflex left ankle) ED Treatment Course - RADIOLOGY Radiology Studies Ordered: Category Date Time Status ANKLE-LEFT [RAD] Stat Radiology 06/10/19 07:28 Completed SHOULDER-RIGHT [RAD] Stat Radiology 06/10/19 07:29 Completed Medical Decision Making - Medical Decision Making 06/10/19 08:01 Chief complaint: Mechanical fall now with right shoulder left ankle pain. Exam: Patient tender to right shoulder along with left ankle. Plan: X-ray of the shoulder and ankle if negative will order Ethan wrap along with Motrin 06/10/19 08:41 X-rays negative for acute pathology including fracture and subluxation. Patient to be discharged home with supportive care for sprain Discharge - Discharge Information Problems reviewed: Yes Clinical Impression/Diagnosis: Ankle sprain, Right shoulder pain Condition: Improved Disposition: HOME - Follow up/Referral Referrals: Nii Carrington PA [Primary Care Provider] - - Patient Discharge Instructions Patient Printed Discharge Instructions: DI for Ankle Sprain, DI for Shoulder Pain Additional Instructions: At this time I recommend applying ice to the affected area for the next 72 hours as much as you can tolerate. Take Motrin or Tylenol every 6-8 hours for pain control and inflammation. Wear Ethan wrap during the day but may remove at night to promote some mobility. If symptoms of the right shoulder continues to the extent that is today over the next 2 weeks please follow-up with an orthopedist as this may require an MRI. - Post Discharge Activity
== END 2019-06-10 09:00 | disposition home or self-care (01) ==
LOC: JER 06:54
DX: S93.402A Sprain of unspecified ligament of left ankle, initial encounter (principal); M25.511 Pain in right shoulder; W18.39XA Other fall on same level, initial encounter; Y93.89 Activity, other specified; Y92.032 Bedroom in apartment as the place of occurrence of the external cause; Y99.8 Other external cause status; J45.909 Unspecified asthma, uncomplicated; E11.9 Type 2 diabetes mellitus without complications; Z79.84 Long term (current) use of oral hypoglycemic drugs; E78.00 Pure hypercholesterolemia, unspecified; E03.9 Hypothyroidism, unspecified; K21.9 Gastro-esophageal reflux disease without esophagitis; I25.10 Atherosclerotic heart disease of native coronary artery without angina pectoris; I10 Essential (primary) hypertension; Z95.5 Presence of coronary angioplasty implant and graft; Z96.652 Presence of left artificial knee joint
CPT/HCPCS: 73030-TC-RT-FY; 73610-TC-LT-FY; 99283-25

== ENCOUNTER 2020-12-25 04:33 | Day surgery (SDC) | payer OTHER ==
[2020-12-23 14:47] VITALS: BMI 45.1
[2020-12-25 12:15] VITALS: TEMP 97.9
[2020-12-25 12:55] VITALS: BP 118/66; PULSE 73
== END 2020-12-25 12:50 | disposition home or self-care (01) ==
LOC: JASU-ENDO 04:33
PROVIDERS: ATTEND Internal Medicine Gastroenterology
PROC: 0DJD8ZZ Inspection of Lower Intestinal Tract, Via Natural or Artificial Opening Endoscopic (ICD-10-PCS; principal; 2020-12-25 11:30)
DX: Z12.11 Encounter for screening for malignant neoplasm of colon (principal); Z86.010 Personal history of colon polyps; I10 Essential (primary) hypertension; Z95.5 Presence of coronary angioplasty implant and graft; E11.9 Type 2 diabetes mellitus without complications; Z79.84 Long term (current) use of oral hypoglycemic drugs

== ENCOUNTER 2021-12-20 17:19 | Inpatient (IN) | payer OTHER ==
[2021-12-20] MEDS ORDERED: ASPIRIN 81 MG CHEWABLE TABLETS PO ONE (17:46)
[2021-12-20] MEDS ORDERED: ASPIRIN 81 MG CHEWABLE TABLETS ONE (17:49)
[2021-12-20 18:44] LABS: BASO % 0.5 % (0-2.0); EOS % 1.1 % (0-4.5); HEMATOCRIT 29.6 % (32.4-45.2); HEMOGLOBIN 10.2 GM/dL (10.7-15.3); LYMPH % 26.5 % (8-40); MCH 29.7 pg (25.7-33.7); MCHC 34.4 g/dl (32.0-36.0); MEAN CELL VOLUME 86.3 fl (80-96); MEAN PLT VOLUME 7.6 fl (7.5-11.1); MONO % 8.6 % (3.8-10.2); NEUT % 63.3 % (42.8-82.8); PLATELET COUNT 379 10^3/uL (134-434); RBC 3.43 M/mm3 (3.60-5.2); RDW 14.6 % (11.6-15.6)
[2021-12-20 18:54] LABS: CHLORIDE 101 mmol/L (98-107); SODIUM 143 mmol/L (136-145)
[2021-12-20 18:56] LABS: CALCIUM 9.2 mg/dL (8.5-10.1)
[2021-12-20 18:57] LABS: ALBUMIN 3.4 g/dl (3.4-5.0); BLOOD UREA NITROGEN 22.8 mg/dL (7-18); CO2 32 mmol/L (21-32); GLUCOSE,RANDOM 114 mg/dL (74-106)
[2021-12-20 19:00] LABS: CREATININE 1.1 mg/dL (0.55-1.3); PHOSPHOROUS 2.9 mg/dL (2.5-4.9); SGOT/AST 11 U/L (15-37); SGPT/ALT 20 U/L (13-61)
[2021-12-20 19:02] LABS: BILIRUBIN,TOTAL 0.4 mg/dL (0.2-1); TOT PROT 6.7 g/dl (6.4-8.2)
[2021-12-20 19:03] LABS: ALK PHOS 102 U/L (45-117)
[2021-12-20 19:05] LABS: N-TERMINAL BNP 209.3 pg/ml (5-125)
[2021-12-20] MEDS ORDERED: MAGNESIUM SULF 50% (8.12 MEQ/2 ML-1 GM VIAL) IVPB ONE ×2 (19:19→20:48)
[2021-12-20] MEDS ORDERED: MAGNESIUM SULFATE IN WATER 2 GM/50 ML IVPB IVPB ONE ×2 (19:21→21:10)
[2021-12-20 19:23] LABS: ACTIVATED PTT 36.1 SECONDS (25.2-36.5); INR 1.15 (0.83-1.09); PROTHROMBIN TIME (PATIENT) 13.3 SEC (9.7-13.0)
[2021-12-20 20:03] LABS: ANION GAP 10 MMOL/L (8-16)
[2021-12-20] MEDS ORDERED: POTASSIUM CHLORIDE TABS 20 MEQ TABLET.ER (FP) PO ONE ×4 (20:07→21:10)
[2021-12-20] MEDS ORDERED: KCL 10 MEQ IVPB 10 MEQ/100 ML INFUS.BAG IVPB ONE ×2 (20:16→21:08)
[2021-12-20] MEDS ORDERED: NITROGLYCERIN SUBLINGUAL 1/150 0.4 MG TAB ONE (20:43)
[2021-12-20] MEDS: KCL 10 MEQ IVPB 10 MEQ/100 ML INFUS.BAG IVPB SCH ×2 (20:45→22:00)
[2021-12-20] MEDS ORDERED: CLOPIDOGREL BISULFATE 75 MG TABLET (FP) PO ONE (20:48)
[2021-12-20] MEDS ORDERED: ATORVASTATIN CA 80 MG TABLET (FP) PO ONE (20:49)
[2021-12-20] MEDS ORDERED: METOPROLOL TARTRATE 25 MG TABLET (FP) PO ONE ×2 (20:49→23:43)
[2021-12-20] MEDS ORDERED: NITROGLYCERIN SUBLINGUAL 1/150 0.4 MG TAB SL ONE (21:06)
[2021-12-20] MEDS ORDERED: ATORVASTATIN CA 80 MG TABLET (FP) ONE (21:10)
[2021-12-20] MEDS ORDERED: METOPROLOL TARTRATE 25 MG TABLET (FP) ONE (21:10)
[2021-12-20] MEDS ORDERED: HEPARIN INFUSION - 25,000 UNITS/500 ML INFUS.BAG IVPB ONE (21:10)
[2021-12-20] MEDS ORDERED: CLOPIDOGREL BISULFATE 75 MG TABLET (FP) ONE (21:10)
[2021-12-20 22:21] LABS: EPI CELLS 35 /uL (0-25.1); HYALINE CASTS 1 /uL (0-3.1); PH,URINE 6.5 (5.0-8.0); URINE APPEARANCE CLEAR; URINE BACTERIA 177 /uL (0-1359); URINE BILIRUBIN NEGATIVE (NEGATIVE); URINE COLOR YELLOW; URINE GLUCOSE (UA) NEGATIVE (NEGATIVE); URINE KETONE NEGATIVE (NEGATIVE); URINE LEUK ESTERASE TRACE (NEGATIVE); URINE NITRITE NEGATIVE (NEGATIVE); URINE PROTEIN NEGATIVE (NEGATIVE); URINE RBC 13 /uL (0-23.9); URINE WBC 11 /uL (0-25.8)
[2021-12-20] MEDS ORDERED: ALBUTEROL SO4 HFA INHALER IH PRN (23:41)
[2021-12-20] MEDS ORDERED: NITROGLYCERIN SUBLINGUAL 1/150 0.4 MG TAB SL PRN (23:41)
[2021-12-21] MEDS: HEPARIN - 25,000 UNIT in SODIUM CHLORIDE 495 ML IV SCH ×2 (00:01→23:53)
[2021-12-21] MEDS: ACETAMINOPHEN 325 MG TABLET (FP) PO PRN ×2 (06:47→21:19)
[2021-12-21] MEDS: INSULIN SLIDING SCALE (NOVOLOG) 1 VIAL SQ SCH ×4 (08:15→21:20)
[2021-12-21 08:51] LABS: HEMATOCRIT 29.4 % (32.4-45.2); HEMOGLOBIN 10.1 GM/dL (10.7-15.3); MCH 29.7 pg (25.7-33.7); MCHC 34.5 g/dl (32.0-36.0); MEAN CELL VOLUME 86.3 fl (80-96); MEAN PLT VOLUME 7.3 fl (7.5-11.1); PLATELET COUNT 371 10^3/uL (134-434); RBC 3.41 M/mm3 (3.60-5.2); RDW 14.8 % (11.6-15.6); WHITE BLOOD COUNT 7.2 K/mm3 (4.0-10.0)
[2021-12-21 09:09] LABS: CHLORIDE 101 mmol/L (98-107); SODIUM 142 mmol/L (136-145)
[2021-12-21] MEDS ORDERED: LISINOPRIL 20 MG TABLET ONE (09:09)
[2021-12-21] MEDS ORDERED: ASPIRIN COATED 81 MG TABLET.EC ONE (09:09)
[2021-12-21] MEDS ORDERED: PANTOPRAZOLE 40 MG TABLET PO ONE (09:09)
[2021-12-21] MEDS ORDERED: GABAPENTIN 300 MG CAPSULE ONE (09:10)
[2021-12-21] MEDS ORDERED: RANOLAZINE E.R. 500 MG TABLET (FP) ONE ×2 (09:10→21:00)
[2021-12-21 09:13] LABS: ALBUMIN 3.4 g/dl (3.4-5.0); CO2 34 mmol/L (21-32); GLUCOSE,RANDOM 125 mg/dL (74-106); MAGNESIUM 1.9 mg/dL (1.8-2.4)
[2021-12-21 09:15] LABS: BLOOD UREA NITROGEN 16.5 mg/dL (7-18)
[2021-12-21 09:16] LABS: PHOSPHOROUS 3.1 mg/dL (2.5-4.9); SGOT/AST 12 U/L (15-37); SGPT/ALT 20 U/L (13-61)
[2021-12-21 09:17] LABS: CHOLESTEROL 123 mg/dL (50-200); CREATININE 0.7 mg/dL (0.55-1.3); HDL CHOLESTEROL 53 mg/dL (40-60); TOT PROT 6.6 g/dl (6.4-8.2)
[2021-12-21 09:18] LABS: ALK PHOS 103 U/L (45-117); BILIRUBIN,TOTAL 0.3 mg/dL (0.2-1); LDL CHOLESTEROL (ONLY SJRH) 43 mg/dL (5-100)
[2021-12-21 09:19] LABS: TRIGLYCERIDES 170 mg/dL (0-150)
[2021-12-21] MEDS: PANTOPRAZOLE 40 MG TABLET PO SCH (09:21)
[2021-12-21] MEDS: GABAPENTIN 300 MG CAPSULE PO SCH ×2 (09:21→21:10)
[2021-12-21] MEDS: LISINOPRIL 20 MG TABLET PO SCH (09:21)
[2021-12-21] MEDS: ASPIRIN COATED 81 MG TABLET.EC PO SCH (09:21)
[2021-12-21] MEDS: RANOLAZINE E.R. 1,000 MG TABLET (FP) PO SCH ×2 (09:21→21:11)
[2021-12-21] MEDS: LEVOTHYROXINE 112 MCG, LEVOTHYROXINE 25 MCG PO SCH (09:21)
[2021-12-21] MEDS: METOPROLOL TARTRATE 25 MG TABLET (FP) PO SCH ×2 (09:22→21:11)
[2021-12-21 09:24] LABS: ANION GAP 7 MMOL/L (8-16)
[2021-12-21] MEDS ORDERED: PATIENT'S OWN MEDICATION (NON-FORMULARY) (Levothyroxine Sodium [Synthroid] 137 MCG Tablet) PO SCH (10:00)
[2021-12-21] MEDS ORDERED: POTASSIUM CHLORIDE TABS 20 MEQ TABLET.ER (FP) PO ONE ×2 (10:24→10:35)
[2021-12-21] MEDS ORDERED: KCL 10 MEQ IVPB 10 MEQ/100 ML INFUS.BAG IVPB ONE ×3 (10:35→14:37)
[2021-12-21] MEDS: KCL 10 MEQ IVPB 10 MEQ/100 ML INFUS.BAG IVPB SCH ×3 (12:28→14:52)
[2021-12-21 12:57] LABS: INR 1.17 (0.83-1.09); PROTHROMBIN TIME (PATIENT) 13.5 SEC (9.7-13.0)
[2021-12-21 13:00] LABS: ACTIVATED PTT 35.9 SECONDS (25.2-36.5)
[2021-12-21] MEDS ORDERED: HEPARIN NA (PORCINE) 5,000 UNITS/ML 1ML VIAL ONE (14:24)
[2021-12-21] MEDS: HEPARIN NA (PORCINE) 5,000 UNITS/ML 1ML VIAL IVPUSH PRN ×2 (14:25→23:53)
[2021-12-21] MEDS ORDERED: POTASSIUM CHLORIDE ORAL LIQUID 20 MEQ/15 ML PO ONE (15:25)
[2021-12-21] MEDS ORDERED: KCL 10 MEQ IVPB 10 MEQ/100 ML INFUS.BAG IVPB SCH (15:30)
[2021-12-21 17:03] LABS: VENOUS BASE EXCESS 4.4 mmol/L (-2-2); VENOUS O2 SATURATION 78.6 % (70-80); VENOUS PCO2 45.6 mmHg (38-52); VENOUS PH 7.426 (7.310-7.410)
[2021-12-21 18:23] VITALS: BMI 44.5
[2021-12-21] MEDS: ATORVASTATIN CA 80 MG TABLET (FP) PO SCH (21:10)
[2021-12-21] MEDS: MONTELUKAST NA 10 MG TABLET PO SCH (21:11)
[2021-12-21 23:05] LABS: CALCIUM 8.9 mg/dL (8.5-10.1)
[2021-12-21 23:06] LABS: BLOOD UREA NITROGEN 15.6 mg/dL (7-18)
[2021-12-21 23:09] LABS: CREATININE 0.9 mg/dL (0.55-1.3)
[2021-12-22] MEDS ORDERED: POTASSIUM CHLORIDE ORAL LIQUID 20 MEQ/15 ML PO ONE ×3 (03:02→08:00)
[2021-12-22] MEDS: KCL 10 MEQ IVPB 10 MEQ/100 ML INFUS.BAG IVPB SCH ×2 (05:20→07:43)
[2021-12-22] MEDS: LEVOTHYROXINE 112 MCG, LEVOTHYROXINE 25 MCG PO SCH (06:16)
[2021-12-22] MEDS: INSULIN SLIDING SCALE (NOVOLOG) 1 VIAL SQ SCH ×4 (06:17→22:07)
[2021-12-22 07:34] LABS: HEMATOCRIT 30.5 % (32.4-45.2); HEMOGLOBIN 10.1 GM/dL (10.7-15.3); MCH 29.2 pg (25.7-33.7); MCHC 33.1 g/dl (32.0-36.0); MEAN CELL VOLUME 88.2 fl (80-96); MEAN PLT VOLUME 7.7 fl (7.5-11.1); PLATELET COUNT 369 10^3/uL (134-434); RBC 3.46 M/mm3 (3.60-5.2); RDW 14.7 % (11.6-15.6); WHITE BLOOD COUNT 6.9 K/mm3 (4.0-10.0)
[2021-12-22 07:44] LABS: INR 1.14 (0.83-1.09); PROTHROMBIN TIME (PATIENT) 13.1 SEC (9.7-13.0)
[2021-12-22 08:00] LABS: ALBUMIN 3.2 g/dl (3.4-5.0); BLOOD UREA NITROGEN 13.6 mg/dL (7-18); MAGNESIUM 1.9 mg/dL (1.8-2.4)
[2021-12-22 08:03] LABS: PHOSPHOROUS 2.7 mg/dL (2.5-4.9)
[2021-12-22 08:04] LABS: CREATININE 0.8 mg/dL (0.55-1.3)
[2021-12-22 08:05] LABS: BILIRUBIN,TOTAL 0.4 mg/dL (0.2-1); TOT PROT 6.2 g/dl (6.4-8.2)
[2021-12-22] MEDS: LISINOPRIL 20 MG TABLET PO SCH ×2 (08:05→09:33)
[2021-12-22] MEDS: PANTOPRAZOLE 40 MG TABLET PO SCH (10:50)
[2021-12-22] MEDS: RANOLAZINE E.R. 1,000 MG TABLET (FP) PO SCH ×2 (10:50→21:49)
[2021-12-22] MEDS: GABAPENTIN 300 MG CAPSULE PO SCH ×2 (10:50→21:49)
[2021-12-22] MEDS: METOPROLOL TARTRATE 25 MG TABLET (FP) PO SCH ×2 (10:50→21:49)
[2021-12-22] MEDS: ASPIRIN COATED 81 MG TABLET.EC PO SCH (10:50)
[2021-12-22] MEDS ORDERED: LOPERAMIDE HCL 2 MG CAPSULE PO PRN (16:41)
[2021-12-22] MEDS: ACETAMINOPHEN 325 MG TABLET (FP) PO PRN (19:37)
[2021-12-22] MEDS ORDERED: RANOLAZINE E.R. 500 MG TABLET (FP) ONE (21:16)
[2021-12-22] MEDS: HEPARIN - 25,000 UNIT in SODIUM CHLORIDE 495 ML IV SCH (21:46)
[2021-12-22] MEDS: MONTELUKAST NA 10 MG TABLET PO SCH (21:49)
[2021-12-22] MEDS: ATORVASTATIN CA 80 MG TABLET (FP) PO SCH (21:49)
[2021-12-23] MEDS: INSULIN SLIDING SCALE (NOVOLOG) 1 VIAL SQ SCH ×4 (06:01→22:11)
[2021-12-23] MEDS: LEVOTHYROXINE 112 MCG, LEVOTHYROXINE 25 MCG PO SCH (06:01)
[2021-12-23 08:18] LABS: HEMATOCRIT 28.9 % (32.4-45.2); HEMOGLOBIN 9.7 GM/dL (10.7-15.3); MCH 29.6 pg (25.7-33.7); MCHC 33.4 g/dl (32.0-36.0); MEAN CELL VOLUME 88.4 fl (80-96); MEAN PLT VOLUME 8.2 fl (7.5-11.1); PLATELET COUNT 336 10^3/uL (134-434); RBC 3.27 M/mm3 (3.60-5.2); RDW 14.9 % (11.6-15.6); WHITE BLOOD COUNT 7.2 K/mm3 (4.0-10.0)
[2021-12-23] MEDS: LISINOPRIL 20 MG TABLET PO SCH ×2 (08:34→12:20)
[2021-12-23] MEDS: HEPARIN NA (PORCINE) 5,000 UNITS/ML 1ML VIAL IVPUSH PRN ×3 (08:39→22:20)
[2021-12-23] MEDS ORDERED: REGADENOSON 0.4 MG/5 ML PRE-FILLED SYRINGE IVPUSH ONE ×2 (09:13→10:15)
[2021-12-23 09:14] LABS: BLOOD UREA NITROGEN 9.3 mg/dL (7-18); CREATININE 0.7 mg/dL (0.55-1.3)
[2021-12-23 09:17] LABS: CALCIUM 8.5 mg/dL (8.5-10.1); MAGNESIUM 1.6 mg/dL (1.8-2.4)
[2021-12-23 09:22] LABS: PHOSPHOROUS 2.8 mg/dL (2.5-4.9)
[2021-12-23 09:24] LABS: BILIRUBIN,TOTAL 0.4 mg/dL (0.2-1); TOT PROT 5.9 g/dl (6.4-8.2)
[2021-12-23] MEDS ORDERED: PNEUMOC 20-VAL CONJ-DIP CRM/PF 0.5 ML SYRINGE IM ONE (10:00)
[2021-12-23] MEDS ORDERED: MAGNESIUM SULF 50% (8.12 MEQ/2 ML-1 GM VIAL) IVPB ONE (10:16)
[2021-12-23] MEDS ORDERED: POTASSIUM CHLORIDE TABS 20 MEQ TABLET.ER (FP) PO ONE (10:16)
[2021-12-23] MEDS ORDERED: RANOLAZINE E.R. 500 MG TABLET (FP) ONE ×2 (10:23→21:28)
[2021-12-23] MEDS ORDERED: AMINOPHYLLINE 250 MG/10 ML VIAL IVPB ONE ×2 (10:41)
[2021-12-23] MEDS ORDERED: AMINOPHYLLINE 250 MG/10 ML VIAL ONE (10:44)
[2021-12-23] MEDS: ASPIRIN COATED 81 MG TABLET.EC PO SCH (12:20)
[2021-12-23] MEDS: GABAPENTIN 300 MG CAPSULE PO SCH ×2 (12:20→22:07)
[2021-12-23] MEDS: METOPROLOL TARTRATE 25 MG TABLET (FP) PO SCH ×2 (12:20→22:07)
[2021-12-23] MEDS: PANTOPRAZOLE 40 MG TABLET PO SCH (12:20)
[2021-12-23] MEDS: RANOLAZINE E.R. 1,000 MG TABLET (FP) PO SCH ×2 (12:20→22:08)
[2021-12-23] MEDS: HEPARIN - 25,000 UNIT in SODIUM CHLORIDE 495 ML IV SCH (17:34)
[2021-12-23] MEDS: ACETAMINOPHEN 325 MG TABLET (FP) PO PRN (17:39)
[2021-12-23] MEDS: ATORVASTATIN CA 80 MG TABLET (FP) PO SCH (22:07)
[2021-12-23] MEDS: MONTELUKAST NA 10 MG TABLET PO SCH (22:08)
[2021-12-24] MEDS: INSULIN SLIDING SCALE (NOVOLOG) 1 VIAL SQ SCH ×4 (06:08→21:47)
[2021-12-24] MEDS: LEVOTHYROXINE 112 MCG, LEVOTHYROXINE 25 MCG PO SCH (06:10)
[2021-12-24 09:21] LABS: HEMATOCRIT 28.5 % (32.4-45.2); HEMOGLOBIN 9.6 GM/dL (10.7-15.3); MCH 29.9 pg (25.7-33.7); MCHC 33.8 g/dl (32.0-36.0); MEAN CELL VOLUME 88.6 fl (80-96); MEAN PLT VOLUME 8.2 fl (7.5-11.1); PLATELET COUNT 335 10^3/uL (134-434); RBC 3.22 M/mm3 (3.60-5.2); RDW 14.6 % (11.6-15.6); WHITE BLOOD COUNT 8.6 K/mm3 (4.0-10.0)
[2021-12-24] MEDS ORDERED: RANOLAZINE E.R. 500 MG TABLET (FP) ONE ×2 (09:37→21:23)
[2021-12-24 09:55] LABS: ALBUMIN 3.2 g/dl (3.4-5.0); BLOOD UREA NITROGEN 8.4 mg/dL (7-18); CALCIUM 8.6 mg/dL (8.5-10.1); MAGNESIUM 1.9 mg/dL (1.8-2.4)
[2021-12-24 09:56] LABS: PHOSPHOROUS 2.4 mg/dL (2.5-4.9)
[2021-12-24 09:57] LABS: CREATININE 0.7 mg/dL (0.55-1.3); TOT PROT 6.3 g/dl (6.4-8.2)
[2021-12-24 09:58] LABS: BILIRUBIN,TOTAL 0.3 mg/dL (0.2-1)
[2021-12-24] MEDS: LISINOPRIL 20 MG TABLET PO SCH (09:59)
[2021-12-24] MEDS: GABAPENTIN 300 MG CAPSULE PO SCH ×2 (09:59→21:42)
[2021-12-24] MEDS: ASPIRIN COATED 81 MG TABLET.EC PO SCH (10:00)
[2021-12-24] MEDS: HEPARIN - 25,000 UNIT in SODIUM CHLORIDE 495 ML IV SCH (10:00)
[2021-12-24] MEDS: PANTOPRAZOLE 40 MG TABLET PO SCH (10:00)
[2021-12-24] MEDS: RANOLAZINE E.R. 1,000 MG TABLET (FP) PO SCH ×2 (10:01→21:42)
[2021-12-24] MEDS: HEPARIN NA (PORCINE) 5,000 UNITS/ML 1ML VIAL IVPUSH PRN (10:01)
[2021-12-24] MEDS: METOPROLOL TARTRATE 25 MG TABLET (FP) PO SCH ×2 (10:02→21:42)
[2021-12-24] MEDS: ATORVASTATIN CA 80 MG TABLET (FP) PO SCH (21:41)
[2021-12-24] MEDS: MONTELUKAST NA 10 MG TABLET PO SCH (21:42)
[2021-12-24] MEDS: ACETAMINOPHEN 325 MG TABLET (FP) PO PRN (21:42)
[2021-12-25] MEDS: HEPARIN - 25,000 UNIT in SODIUM CHLORIDE 495 ML IV SCH (01:35)
[2021-12-25 01:54] VITALS: RESP 20
[2021-12-25] MEDS: INSULIN SLIDING SCALE (NOVOLOG) 1 VIAL SQ SCH ×2 (06:34→11:03)
[2021-12-25] MEDS: LEVOTHYROXINE 112 MCG, LEVOTHYROXINE 25 MCG PO SCH (06:34)
[2021-12-25 07:43] LABS: HEMATOCRIT 28.7 % (32.4-45.2); HEMOGLOBIN 9.3 GM/dL (10.7-15.3); MCH 28.9 pg (25.7-33.7); MCHC 32.3 g/dl (32.0-36.0); MEAN CELL VOLUME 89.5 fl (80-96); MEAN PLT VOLUME 8.3 fl (7.5-11.1); PLATELET COUNT 337 10^3/uL (134-434); RBC 3.21 M/mm3 (3.60-5.2); RDW 15.2 % (11.6-15.6); WHITE BLOOD COUNT 8.5 K/mm3 (4.0-10.0)
[2021-12-25 07:56] LABS: ALBUMIN 3.1 g/dl (3.4-5.0); MAGNESIUM 1.9 mg/dL (1.8-2.4)
[2021-12-25 07:57] LABS: BLOOD UREA NITROGEN 10.6 mg/dL (7-18)
[2021-12-25 07:58] LABS: PHOSPHOROUS 2.8 mg/dL (2.5-4.9)
[2021-12-25 07:59] LABS: BILIRUBIN,TOTAL 0.3 mg/dL (0.2-1); CREATININE 0.8 mg/dL (0.55-1.3); TOT PROT 6.2 g/dl (6.4-8.2)
[2021-12-25 08:58] VITALS: BP 159/72; PULSE 57; TEMP 98.5
[2021-12-25] MEDS: METOPROLOL TARTRATE 25 MG TABLET (FP) PO SCH (09:58)
[2021-12-25] MEDS ORDERED: RANOLAZINE E.R. 500 MG TABLET (FP) ONE (10:04)
[2021-12-25] MEDS: ASPIRIN COATED 81 MG TABLET.EC PO SCH (10:08)
[2021-12-25] MEDS: PANTOPRAZOLE 40 MG TABLET PO SCH (10:08)
[2021-12-25] MEDS: LISINOPRIL 20 MG TABLET PO SCH (10:08)
[2021-12-25] MEDS: GABAPENTIN 300 MG CAPSULE PO SCH (10:08)
[2021-12-25] MEDS: RANOLAZINE E.R. 1,000 MG TABLET (FP) PO SCH (10:10)
== END 2021-12-25 12:00 | disposition short-term general hospital (02) | DRG 281 ==
LOC: JER 17:19 → JERBED 18:42 → J4W 12-21 17:44
PROVIDERS: ADMIT Hospitalist; ATTEND Internal Medicine
DX: I21.4 Non-ST elevation (NSTEMI) myocardial infarction (principal); E87.3 Alkalosis; N17.9 Acute kidney failure, unspecified; Z68.41 Body mass index [BMI] 40.0-44.9, adult; I10 Essential (primary) hypertension; E78.5 Hyperlipidemia, unspecified; E11.9 Type 2 diabetes mellitus without complications; E03.9 Hypothyroidism, unspecified; Z98.61 Coronary angioplasty status; E87.6 Hypokalemia; E83.42 Hypomagnesemia; E66.01 Morbid (severe) obesity due to excess calories; R07.89 Other chest pain; J45.909 Unspecified asthma, uncomplicated; E11.40 Type 2 diabetes mellitus with diabetic neuropathy, unspecified; D64.9 Anemia, unspecified; K21.9 Gastro-esophageal reflux disease without esophagitis; M25.512 Pain in left shoulder
CPT/HCPCS: 36415; 71045-TC-FY; 76705-TC; 78452-TC; 80048; 80053; 80061; 81003; 82803; 82962; 83036; 83735; 83880; 84100; 84443; 84484; 85025; 85027; 85610; 85730; 86850; 86900; 86901; 87086; 90677; 93005; 93010; 93017; 93306-TC; 99291; A9502; C9803-CS; J1644; J2785; U0003; U0005

== ENCOUNTER 2023-01-02 14:31 | Inpatient (IN) | payer OTHER ==
[2023-01-02 14:37] VITALS: BMI 29.2
[2023-01-02] MEDS ORDERED: ASPIRIN 81 MG CHEWABLE TABLETS PO ONE (15:39)
[2023-01-02] MEDS ORDERED: ACETAMINOPHEN 1000 MG/100 ML BAG IVPB ONE (15:44)
[2023-01-02] MEDS ORDERED: ASPIRIN 81 MG CHEWABLE TABLETS ONE (15:51)
[2023-01-02 16:24] LABS: BASO % 0.6 % (0-2.0); EOS % 0.7 % (0-4.5); HEMATOCRIT 37.3 % (32.4-45.2); HEMOGLOBIN 12.3 GM/dL (10.7-15.3); LYMPH % 31.4 % (8-40); MCH 27.4 pg (25.7-33.7); MEAN CELL VOLUME 83.3 fl (80-96); MEAN PLT VOLUME 7.7 fl (7.5-11.1); NEUT % 60.3 % (42.8-82.8); PLATELET COUNT 374 10^3/uL (134-434); RBC 4.48 M/mm3 (3.60-5.2); RDW 15.8 % (11.6-15.6); WHITE BLOOD COUNT 7.8 K/mm3 (4.0-10.0)
[2023-01-02 16:39] LABS: INR 1.14 (0.83-1.09); POTASSIUM 3.4 mmol/L (3.5-5.1); PROTHROMBIN TIME (PATIENT) 13.2 SEC (9.7-13.0)
[2023-01-02 16:41] LABS: CALCIUM 9.7 mg/dL (8.5-10.1)
[2023-01-02 16:42] LABS: ALBUMIN 3.8 g/dl (3.4-5.0); BLOOD UREA NITROGEN 26.3 mg/dL (7-18); MAGNESIUM 1.2 mg/dL (1.8-2.4)
[2023-01-02 16:45] LABS: CREATININE 1.2 mg/dL (0.55-1.3); PHOSPHOROUS 3.7 mg/dL (2.5-4.9)
[2023-01-02 16:47] LABS: BILIRUBIN,TOTAL 0.3 mg/dL (0.2-1); TOT PROT 7.3 g/dl (6.4-8.2)
[2023-01-02] MEDS ORDERED: ACETAMINOPHEN INJECTION 100 ML IVPB ONE (18:22)
[2023-01-02] MEDS ORDERED: HEPARIN NA (PORCINE) 5,000 UNITS/ML 1ML VIAL IVPUSH PRN ×2 (19:03)
[2023-01-02] MEDS ORDERED: HEPARIN NA (PORCINE) 5,000 UNITS/ML 1ML VIAL IVPUSH ONE (19:03)
[2023-01-02] MEDS ORDERED: HEPARIN INFUSION - 25,000 UNITS/500 ML INFUS.BAG IVPB ONE (19:03)
[2023-01-02] MEDS: HEPARIN - 25,000 UNIT in SODIUM CHLORIDE 495 ML IV SCH (19:42)
[2023-01-02] MEDS ORDERED: ALBUTEROL SO4 HFA INHALER IH PRN (20:58)
[2023-01-02] MEDS ORDERED: MAGNESIUM SULF 50% (8.12 MEQ/2 ML-1 GM VIAL) IVPB ONE (21:20)
[2023-01-02] MEDS ORDERED: POTASSIUM CHLORIDE ORAL LIQUID 20 MEQ/15 ML PO ONE (21:21)
[2023-01-02] MEDS ORDERED: LIDOCAINE 5% TOPICAL PATCH TP ONE (21:25)
[2023-01-02] MEDS: LIDOCAINE PATCH REMOVAL MC SCH (22:01)
[2023-01-02] MEDS: GABAPENTIN 300 MG CAPSULE PO SCH (22:01)
[2023-01-02] MEDS: ATORVASTATIN CA 80 MG TABLET (FP) PO SCH (22:01)
[2023-01-02] MEDS: MONTELUKAST NA 10 MG TABLET PO SCH (22:02)
[2023-01-02] MEDS: RANOLAZINE E.R. 1,000 MG TABLET (FP) PO SCH (22:02)
[2023-01-02] MEDS ORDERED: ATORVASTATIN CA 80 MG TABLET (FP) ONE (22:16)
[2023-01-02] MEDS ORDERED: MONTELUKAST NA 10 MG TABLET ONE (22:16)
[2023-01-02] MEDS ORDERED: GABAPENTIN 300 MG CAPSULE ONE (22:16)
[2023-01-02] MEDS ORDERED: LIDOCAINE 5% TOPICAL PATCH ONE (22:18)
[2023-01-02] MEDS ORDERED: MAGNESIUM SULFATE IN WATER 2 GM/50 ML IVPB IVPB ONE (22:18)
[2023-01-02] MEDS ORDERED: POTASSIUM CHLORIDE TABS 20 MEQ TABLET.ER (FP) PO ONE (22:18)
[2023-01-02] MEDS: INSULIN SLIDING SCALE (NOVOLOG) 1 VIAL SQ SCH (22:48)
[2023-01-03 03:25] LABS: INR 1.05 (0.83-1.09); PROTHROMBIN TIME (PATIENT) 12.2 SEC (9.7-13.0)
[2023-01-03 03:27] LABS: ACTIVATED PTT 35.4 SECONDS (25.2-36.5)
[2023-01-03] MEDS ORDERED: HEPARIN NA (PORCINE) 5,000 UNITS/ML 1ML VIAL ONE (04:55)
[2023-01-03 08:33] LABS: BASO % 0.7 % (0-2.0); EOS % 1.8 % (0-4.5); HEMOGLOBIN 11.6 GM/dL (10.7-15.3); LYMPH % 42.2 % (8-40); MCH 27.5 pg (25.7-33.7); MCHC 32.2 g/dl (32.0-36.0); MEAN CELL VOLUME 85.3 fl (80-96); MEAN PLT VOLUME 8.5 fl (7.5-11.1); MONO % 6.6 % (3.8-10.2); NEUT % 48.7 % (42.8-82.8); PLATELET COUNT 354 10^3/uL (134-434); RBC 4.22 M/mm3 (3.60-5.2); RDW 15.8 % (11.6-15.6)
[2023-01-03] MEDS: INSULIN SLIDING SCALE (NOVOLOG) 1 VIAL SQ SCH ×4 (08:54→23:40)
[2023-01-03] MEDS ORDERED: ACETAMINOPHEN INJECTION 100 ML IVPB ONE (09:06)
[2023-01-03] MEDS ORDERED: ACETAMINOPHEN 1000 MG/100 ML BAG IVPB PRN (09:17)
[2023-01-03] MEDS ORDERED: ACETAMINOPHEN 1000 MG/100 ML BAG IVPB ONE (09:30)
[2023-01-03 09:43] LABS: BLOOD UREA NITROGEN 19.6 mg/dL (7-18); CALCIUM 9.4 mg/dL (8.5-10.1); CREATININE 0.8 mg/dL (0.55-1.3); POTASSIUM 3.3 mmol/L (3.5-5.1)
[2023-01-03] MEDS ORDERED: POTASSIUM CHLORIDE TABS 20 MEQ TABLET.ER (FP) PO ONE ×2 (09:52→10:58)
[2023-01-03] MEDS ORDERED: CLOPIDOGREL BISULFATE 75 MG TABLET (FP) PO SCH (10:00)
[2023-01-03] MEDS ORDERED: ISOSORBIDE MONONITRATE 30 MG TAB.SR.24H (FP) PO SCH ×2 (10:00)
[2023-01-03] MEDS: LEVOTHYROXINE 112 MCG, LEVOTHYROXINE 25 MCG PO SCH (10:00)
[2023-01-03] MEDS ORDERED: PATIENT'S OWN MEDICATION (NON-FORMULARY) (Levothyroxine Sodium [Levothyroxine] 137 MCG Cap PO SCH (10:00)
[2023-01-03] MEDS ORDERED: LISINOPRIL 20 MG TABLET ONE (10:56)
[2023-01-03] MEDS ORDERED: HYDROCHLOROTHIAZIDE 25 MG TABLET (FP) ONE (10:56)
[2023-01-03] MEDS ORDERED: ISOSORBIDE MONONITRATE 60 MG TAB.SR.24H (FP) PO ONE (10:58)
[2023-01-03] MEDS ORDERED: CLOPIDOGREL BISULFATE 75 MG TABLET (FP) ONE (10:58)
[2023-01-03] MEDS ORDERED: ASPIRIN 81 MG CHEWABLE TABLETS ONE (10:58)
[2023-01-03] MEDS ORDERED: ISOSORBIDE MONONITRATE 30 MG TAB.SR.24H (FP) PO ONE (10:59)
[2023-01-03] MEDS ORDERED: GABAPENTIN 300 MG CAPSULE ONE (10:59)
[2023-01-03 11:40] LABS: MAGNESIUM 1.8 mg/dL (1.8-2.4)
[2023-01-03] MEDS: HEPARIN - 25,000 UNIT in SODIUM CHLORIDE 495 ML IV SCH ×2 (12:17→22:45)
[2023-01-03] MEDS: CLOPIDOGREL BISULFATE 75 MG TABLET (FP) PO SCH (12:35)
[2023-01-03] MEDS: GABAPENTIN 300 MG CAPSULE PO SCH ×2 (12:35→22:47)
[2023-01-03] MEDS: LISINOPRIL 20 MG TABLET PO SCH (12:35)
[2023-01-03] MEDS: ASPIRIN 81 MG CHEWABLE TABLETS PO SCH (12:35)
[2023-01-03] MEDS: ISOSORBIDE MONONITRATE 60 MG, ISOSORBIDE MONONITRATE 30 MG PO SCH (12:35)
[2023-01-03] MEDS: HYDROCHLOROTHIAZIDE 25 MG TABLET (FP) PO SCH (12:35)
[2023-01-03] MEDS ORDERED: metoPROLOL SUCCINATE 25 MG TAB.SR.24H (FP) PO ONE (13:42)
[2023-01-03] MEDS ORDERED: RANOLAZINE E.R. 500 MG TABLET (FP) ONE ×2 (14:01→22:21)
[2023-01-03] MEDS: RANOLAZINE E.R. 1,000 MG TABLET (FP) PO SCH ×2 (14:03→22:48)
[2023-01-03] MEDS ORDERED: MAGNESIUM OXIDE 400 MG TABLET (FP) PO ONE (15:00)
[2023-01-03] MEDS ORDERED: MAGNESIUM OXIDE 400 MG TABLET (FP) ONE (16:02)
[2023-01-03] MEDS: ATORVASTATIN CA 80 MG TABLET (FP) PO SCH (22:47)
[2023-01-03] MEDS: MONTELUKAST NA 10 MG TABLET PO SCH (22:47)
[2023-01-03] MEDS: LIDOCAINE PATCH REMOVAL MC SCH (22:48)
[2023-01-03] MEDS ORDERED: RANOLAZINE E.R. 500 MG TABLET (FP) PO SCH (23:55)
[2023-01-04] MEDS ORDERED: FAMOTIDINE 10 MG TABLET PO ONE
[2023-01-04] MEDS: INSULIN SLIDING SCALE (NOVOLOG) 1 VIAL SQ SCH ×2 (06:31→12:12)
[2023-01-04] MEDS: LEVOTHYROXINE 112 MCG, LEVOTHYROXINE 25 MCG PO SCH (06:32)
[2023-01-04 08:11] LABS: POTASSIUM 3.8 mmol/L (3.5-5.1)
[2023-01-04 08:12] LABS: BASO % 0.8 % (0-2.0); EOS % 2.8 % (0-4.5); HEMATOCRIT 36.4 % (32.4-45.2); HEMOGLOBIN 11.7 GM/dL (10.7-15.3); LYMPH % 37.6 % (8-40); MCH 27.5 pg (25.7-33.7); MCHC 32.2 g/dl (32.0-36.0); MEAN CELL VOLUME 85.2 fl (80-96); MEAN PLT VOLUME 8.2 fl (7.5-11.1); NEUT % 50.8 % (42.8-82.8); PLATELET COUNT 350 10^3/uL (134-434); RBC 4.27 M/mm3 (3.60-5.2); RDW 15.4 % (11.6-15.6); WHITE BLOOD COUNT 6.8 K/mm3 (4.0-10.0)
[2023-01-04 08:29] LABS: ALBUMIN 3.6 g/dl (3.4-5.0); CALCIUM 9.8 mg/dL (8.5-10.1)
[2023-01-04 08:30] LABS: MAGNESIUM 1.8 mg/dL (1.8-2.4)
[2023-01-04 08:32] LABS: CREATININE 0.8 mg/dL (0.55-1.3); PHOSPHOROUS 3.6 mg/dL (2.5-4.9)
[2023-01-04 08:33] LABS: BILIRUBIN,TOTAL 0.3 mg/dL (0.2-1)
[2023-01-04 08:34] LABS: TOT PROT 6.7 g/dl (6.4-8.2)
[2023-01-04] MEDS: GABAPENTIN 300 MG CAPSULE PO SCH (09:30)
[2023-01-04] MEDS: CLOPIDOGREL BISULFATE 75 MG TABLET (FP) PO SCH (09:30)
[2023-01-04] MEDS: HYDROCHLOROTHIAZIDE 25 MG TABLET (FP) PO SCH (09:30)
[2023-01-04] MEDS: LISINOPRIL 20 MG TABLET PO SCH (09:30)
[2023-01-04] MEDS: ISOSORBIDE MONONITRATE 60 MG, ISOSORBIDE MONONITRATE 30 MG PO SCH (09:30)
[2023-01-04] MEDS: ASPIRIN 81 MG CHEWABLE TABLETS PO SCH (09:31)
[2023-01-04] MEDS ORDERED: metoPROLOL SUCCINATE 25 MG TAB.SR.24H (FP) PO SCH (10:00)
[2023-01-04] MEDS: HEPARIN - 25,000 UNIT in SODIUM CHLORIDE 495 ML IV SCH (11:32)
[2023-01-04 13:44] VITALS: RESP 18
[2023-01-04 14:30] LABS: N-TERMINAL BNP 72.9 pg/ml (5-125)
[2023-01-04 14:54] VITALS: BP 135/54; PULSE 68; TEMP 98.4
== END 2023-01-04 16:54 | disposition home or self-care (01) | DRG 281 ==
LOC: JER 14:31 → JERBED 19:49 → J4S 01-03 19:03
PROVIDERS: ADMIT Internal Medicine; ATTEND Internal Medicine
DX: I21.4 Non-ST elevation (NSTEMI) myocardial infarction (principal); I50.30 Unspecified diastolic (congestive) heart failure; R07.89 Other chest pain; I25.10 Atherosclerotic heart disease of native coronary artery without angina pectoris; I24.8 Other forms of acute ischemic heart disease; E78.5 Hyperlipidemia, unspecified; E03.9 Hypothyroidism, unspecified; E11.9 Type 2 diabetes mellitus without complications; K21.9 Gastro-esophageal reflux disease without esophagitis; J45.909 Unspecified asthma, uncomplicated; I11.0 Hypertensive heart disease with heart failure; G25.81 Restless legs syndrome; E66.8 Other obesity; Z68.29 Body mass index [BMI] 29.0-29.9, adult; Z95.5 Presence of coronary angioplasty implant and graft
CPT/HCPCS: 0241U-QW; 36415; 71045-TC-FY; 71275-TC; 74175-TC; 80048; 80053; 80061; 82088; 82533; 82550; 82553; 82962; 83036; 83735; 83880; 84100; 84244; 84443; 84484; 85025; 85610; 85730; 93005; 93010; 93306-TC; 99285-25; J1644; Q9967

== ENCOUNTER 2023-06-15 11:51 | Emergency (ER) | payer OTHER ==
[2023-06-15 13:09] VITALS: BMI 41.0
[2023-06-15] MEDS ORDERED: ACETAMINOPHEN 325 MG TABLET (FP) ONE (14:43)
[2023-06-15 14:46] LABS: HEMATOCRIT 36.3 % (32.4-45.2); HEMOGLOBIN 12.2 GM/dL (10.7-15.3); MCH 28.4 pg (25.7-33.7); MCHC 33.7 g/dl (32.0-36.0); MEAN CELL VOLUME 84.2 fl (80-96); MEAN PLT VOLUME 7.5 fl (7.5-11.1); PLATELET COUNT 354 10^3/uL (134-434); RBC 4.31 M/mm3 (3.60-5.2); RDW 15.9 % (11.6-15.6); WHITE BLOOD COUNT 8.8 K/mm3 (4.0-10.0)
[2023-06-15] MEDS: ACETAMINOPHEN 500 MG TABLET (FP) PO ONE (14:46)
[2023-06-15] MEDS ORDERED: VANCOMYCIN IVPB ONE (14:55)
[2023-06-15] MEDS ORDERED: DEXTROSE 5% IVPB ONE (14:55)
[2023-06-15] MEDS ORDERED: WATER IVPB ONE (14:55)
[2023-06-15 14:59] LABS: INR 1.22 (0.83-1.09); PROTHROMBIN TIME (PATIENT) 14.1 SEC (9.7-13.0)
[2023-06-15 15:01] LABS: ACTIVATED PTT 37.5 SECONDS (25.2-36.5)
[2023-06-15 15:03] LABS: CHLORIDE 100 mmol/L (98-107); SODIUM 141 mmol/L (136-145)
[2023-06-15 15:05] LABS: CALCIUM 9.7 mg/dL (8.5-10.1)
[2023-06-15 15:06] LABS: BLOOD UREA NITROGEN 11.4 mg/dL (7-18); CO2 32 mmol/L (21-32); GLUCOSE,RANDOM 111 mg/dL (74-106)
[2023-06-15 15:09] LABS: CREATININE 0.9 mg/dL (0.55-1.3); SGOT/AST 11 U/L (15-37); SGPT/ALT 21 U/L (13-61)
[2023-06-15 15:11] LABS: BILIRUBIN,TOTAL 0.5 mg/dL (0.2-1); TOT PROT 7.5 g/dl (6.4-8.2)
[2023-06-15 15:12] LABS: ALK PHOS 128 U/L (45-117)
[2023-06-15] MEDS ORDERED: VANCOMYCIN 2,000 MG in DEXTROSE 5%-WATER - 250 ML IVPB ONE (15:14)
[2023-06-15] MEDS ORDERED: VANCOMYCIN 250 MG in DEXTROSE 5%-WATER - 100 ML IVPB ONE (15:15)
[2023-06-15 15:18] LABS: ANION GAP 9 mmol/L (4-13); POTASSIUM 2.5 mmol/L (3.5-5.1)
[2023-06-15] MEDS ORDERED: POTASSIUM CHLORIDE TABS 20 MEQ TABLET.ER (FP) PO ONE (15:45)
[2023-06-15 16:07] LABS: MAGNESIUM 1.2 mg/dL (1.8-2.4)
[2023-06-15] MEDS: DEXTROSE 5% IVPB ONE ×2 (16:47→16:48)
[2023-06-15] MEDS: VANCOMYCIN IVPB ONE ×2 (16:47→16:48)
[2023-06-15] MEDS: POTASSIUM CHLORIDE TABS 20 MEQ TABLET.ER (FP) PO ONE (16:47)
[2023-06-15] MEDS: WATER IVPB ONE ×2 (16:47→16:48)
[2023-06-15] MEDS: VANCOMYCIN 2,000 MG in DEXTROSE 5%-WATER - 500 ML IVPB ONE (16:48)
[2023-06-15] MEDS ORDERED: MAGNESIUM SULFATE IN WATER 2 GM/50 ML IVPB IVPB ONE (17:05)
[2023-06-15] MEDS: MAGNESIUM SULF 50% (8.12 MEQ/2 ML-1 GM VIAL) IVPB ONE (17:13)
[2023-06-15] MEDS ORDERED: KCL 10 MEQ IVPB 10 MEQ/100 ML INFUS.BAG IVPB ONE (18:47)
[2023-06-15] MEDS: KCL 10 MEQ IVPB 10 MEQ/100 ML INFUS.BAG IVPB SCH (18:56)
[2023-06-15 21:03] VITALS: BP 136/58; PULSE 70; RESP 18; TEMP 98.6
== END 2023-06-15 21:16 | disposition short-term general hospital (02) ==
LOC: JER 11:51
PROC: 3E03329 Introduction of Other Anti-infective into Peripheral Vein, Percutaneous Approach (ICD-10-PCS; principal; 2023-06-15)
PROC: 3E033GC Introduction of Other Therapeutic Substance into Peripheral Vein, Percutaneous Approach (ICD-10-PCS; 2023-06-15)
DX: R22.32 Localized swelling, mass and lump, left upper limb (principal); L53.9 Erythematous condition, unspecified; R20.2 Paresthesia of skin; L03.114 Cellulitis of left upper limb
CPT/HCPCS: 36415; 73090-TC-LT-FY; 73110-TC-LT-FY; 73130-TC-LT-FY; 80053; 83735; 85027; 85610; 85651; 85730; 86140; 87040; 93005; 93010; 93971; 99285-25

== ENCOUNTER 2024-01-06 14:03 | Inpatient (IN) | payer OTHER ==
[2024-01-06] MEDS ORDERED: ASPIRIN 81 MG CHEWABLE TABLETS ONE (16:08)
[2024-01-06 16:18] LABS: BASO % 0.7 % (0-2.0); EOS % 1.9 % (0-4.5); HEMATOCRIT 35.7 % (32.4-45.2); HEMOGLOBIN 11.7 GM/dL (10.7-15.3); LYMPH % 29.9 % (8-40); MCH 29.2 pg (25.7-33.7); MCHC 32.8 g/dl (32.0-36.0); MEAN CELL VOLUME 88.9 fl (80-96); MEAN PLT VOLUME 7.9 fl (7.5-11.1); NEUT % 59.5 % (42.8-82.8); PLATELET COUNT 370 10^3/uL (134-434); RBC 4.02 M/mm3 (3.60-5.2); RDW 15.9 % (11.6-15.6); WHITE BLOOD COUNT 7.7 K/mm3 (4.0-10.0)
[2024-01-06] MEDS: ASPIRIN 81 MG CHEWABLE TABLETS PO ONE (16:18)
[2024-01-06 16:39] LABS: CALCIUM 9.1 mg/dL (8.5-10.1)
[2024-01-06 16:40] LABS: ALBUMIN 3.5 g/dl (3.4-5.0); BLOOD UREA NITROGEN 18.2 mg/dL (7-18)
[2024-01-06 16:43] LABS: CREATININE 0.9 mg/dL (0.55-1.3)
[2024-01-06 16:44] LABS: BILIRUBIN,TOTAL 0.3 mg/dL (0.2-1); TOT PROT 6.9 g/dl (6.4-8.2)
[2024-01-06 16:48] LABS: N-TERMINAL BNP 416.4 pg/ml (5-125)
[2024-01-06 17:15] LABS: ACTIVATED PTT 39.1 SECONDS (25.2-36.5); INR 1.04 (0.83-1.09); PROTHROMBIN TIME (PATIENT) 11.9 SEC (9.7-13.0)
[2024-01-06] MEDS ORDERED: MAGNESIUM 1GM/D5W - 1 GM/100 ML IVPB IVPB ONE (17:34)
[2024-01-06] MEDS ORDERED: POTASSIUM CHLORIDE ORAL LIQUID 20 MEQ/15 ML ONE (17:34)
[2024-01-06] MEDS: POTASSIUM CHLORIDE ORAL LIQUID 20 MEQ/15 ML PO ONE (17:39)
[2024-01-06] MEDS: MAGNESIUM 1GM/D5W - 1 GM/100 ML IVPB IVPB ONE (17:39)
[2024-01-06] MEDS ORDERED: HEPARIN NA (PORCINE) 5,000 UNITS/ML 1ML VIAL IVPUSH PRN (17:44)
[2024-01-06] MEDS: HEPARIN NA (PORCINE) 5,000 UNITS/ML 1ML VIAL IVPUSH ONE (18:40)
[2024-01-06] MEDS: HEPARIN INFUSION - 25,000 UNITS/500 ML INFUS.BAG IVPB SCH (18:40)
[2024-01-06 22:54] LABS: HIV INTERPRETATION NEGATIVE (NEGATIVE)
[2024-01-06] MEDS ORDERED: ACETAMINOPHEN 325 MG TABLET (FP) PO PRN (23:58)
[2024-01-07 00:12] VITALS: BMI 44.4
[2024-01-07] MEDS: ACETAMINOPHEN 325 MG TABLET (FP) PO PRN (00:17)
[2024-01-07] MEDS: POTASSIUM CHLORIDE ORAL LIQUID 20 MEQ/15 ML PO ONE (00:19)
[2024-01-07] MEDS: HEPARIN NA (PORCINE) 5,000 UNITS/ML 1ML VIAL IVPUSH PRN (01:32)
[2024-01-07 05:08] LABS: PH,URINE 6.5 (5.0-8.0); URINE APPEARANCE CLEAR; URINE BILIRUBIN NEGATIVE (NEGATIVE); URINE COLOR YELLOW; URINE GLUCOSE (UA) 3+ (NEGATIVE); URINE KETONE NEGATIVE (NEGATIVE); URINE LEUK ESTERASE NEGATIVE (NEGATIVE); URINE NITRITE NEGATIVE (NEGATIVE); URINE PROTEIN NEGATIVE (NEGATIVE)
[2024-01-07] MEDS: INSULIN ASPART SLIDING SCALE (NOVOLOG) 1 VIAL SQ SCH (06:50)
[2024-01-07 08:25] LABS: BASO % 0.9 % (0-2.0); EOS % 1.8 % (0-4.5); HEMATOCRIT 36.5 % (32.4-45.2); HEMOGLOBIN 11.7 GM/dL (10.7-15.3); LYMPH % 30.2 % (8-40); MCH 28.4 pg (25.7-33.7); MEAN CELL VOLUME 88.8 fl (80-96); MEAN PLT VOLUME 7.9 fl (7.5-11.1); MONO % 6.7 % (3.8-10.2); NEUT % 60.4 % (42.8-82.8); PLATELET COUNT 358 10^3/uL (134-434); WHITE BLOOD COUNT 8.1 K/mm3 (4.0-10.0)
[2024-01-07 08:43] LABS: CALCIUM 9.3 mg/dL (8.5-10.1)
[2024-01-07 08:44] LABS: ALBUMIN 3.7 g/dl (3.4-5.0); BLOOD UREA NITROGEN 12.8 mg/dL (7-18)
[2024-01-07 08:45] LABS: MAGNESIUM 1.4 mg/dL (1.8-2.4)
[2024-01-07 08:46] LABS: BILIRUBIN,TOTAL 0.3 mg/dL (0.2-1); CREATININE 0.8 mg/dL (0.55-1.3); PHOSPHOROUS 3.6 mg/dL (2.5-4.9); TOT PROT 6.8 g/dl (6.4-8.2)
[2024-01-07] MEDS ORDERED: RANOLAZINE E.R. 500 MG TABLET (FP) ONE ×2 (09:51→21:01)
[2024-01-07] MEDS: LOSARTAN POTASSIUM 25 MG TABLET PO SCH (09:52)
[2024-01-07] MEDS: CLOPIDOGREL BISULFATE 75 MG TABLET (FP) PO SCH (09:52)
[2024-01-07] MEDS: ASPIRIN 81 MG CHEWABLE TABLETS PO SCH (09:53)
[2024-01-07] MEDS: GABAPENTIN 300 MG CAPSULE PO SCH (09:53)
[2024-01-07] MEDS: HYDROCHLOROTHIAZIDE 25 MG TABLET (FP) PO SCH (09:53)
[2024-01-07] MEDS: RANOLAZINE E.R. 1,000 MG TABLET (FP) PO SCH (09:56)
[2024-01-07] MEDS: FLUTICASONE/UMECLIDIN/VILANTER(100-62.5-25 TRELEGY ELLIPTA) INAHLER IH SCH (10:09)
[2024-01-07] MEDS: MAGNESIUM 1GM/D5W - 1 GM/100 ML IVPB IVPB ONE (13:14)
[2024-01-07] MEDS: KCL 10 MEQ IVPB 10 MEQ/100 ML INFUS.BAG IVPB SCH (13:25)
[2024-01-07] MEDS: POTASSIUM CHLORIDE ORAL LIQUID 20 MEQ/15 ML PO SCH (13:28)
[2024-01-07] MEDS: EMPAGLIFLOZIN (JARDIANCE) 10 MG TABLET PO SCH (13:29)
[2024-01-07] MEDS: ISOSORBIDE MONONITRATE 30 MG TAB.SR.24H (FP) PO SCH ×2 (17:34→22:06)
[2024-01-07] MEDS: ATORVASTATIN CA 80 MG TABLET (FP) PO SCH (21:07)
[2024-01-07] MEDS: MONTELUKAST NA 10 MG TABLET PO SCH (21:08)
[2024-01-08 07:23] LABS: POTASSIUM 3.6 mmol/L (3.5-5.1)
[2024-01-08 07:26] LABS: BLOOD UREA NITROGEN 12.4 mg/dL (7-18); CALCIUM 9.2 mg/dL (8.5-10.1); MAGNESIUM 1.7 mg/dL (1.8-2.4)
[2024-01-08 07:30] LABS: CREATININE 0.8 mg/dL (0.55-1.3); PHOSPHOROUS 3.8 mg/dL (2.5-4.9)
[2024-01-08 08:58] LABS: HEMOGLOBIN 11.2 GM/dL (10.7-15.3); MCH 29.1 pg (25.7-33.7); MCHC 33.1 g/dl (32.0-36.0); MEAN CELL VOLUME 88.1 fl (80-96); MEAN PLT VOLUME 8.2 fl (7.5-11.1); PLATELET COUNT 339 10^3/uL (134-434); RBC 3.86 M/mm3 (3.60-5.2); RDW 16.2 % (11.6-15.6); WHITE BLOOD COUNT 6.6 K/mm3 (4.0-10.0)
[2024-01-08] MEDS ORDERED: RANOLAZINE E.R. 500 MG TABLET (FP) ONE (09:21)
[2024-01-08] MEDS: MAGNESIUM 2GM/50ML STERILE WATER IVPB IVPB ONE (09:31)
[2024-01-08] MEDS: PANTOPRAZOLE 20 MG TABLET PO ONE (09:31)
[2024-01-08] MEDS ORDERED: SIMETHICONE 80 MG TAB.CHEW (FP) PO PRN (10:36)
[2024-01-08 15:24] VITALS: BP 140/64; PULSE 54; RESP 18; TEMP 98.4
== END 2024-01-08 16:28 | disposition home or self-care (01) | DRG 313 ==
LOC: JER 14:03 → JERBED 17:45 → J4W 23:26
PROVIDERS: ADMIT Internal Medicine; ATTEND Internal Medicine
DX: R07.89 Other chest pain (principal); Z68.41 Body mass index [BMI] 40.0-44.9, adult; I50.30 Unspecified diastolic (congestive) heart failure; I10 Essential (primary) hypertension; E78.5 Hyperlipidemia, unspecified; E11.9 Type 2 diabetes mellitus without complications; E03.9 Hypothyroidism, unspecified; I25.10 Atherosclerotic heart disease of native coronary artery without angina pectoris; J45.909 Unspecified asthma, uncomplicated; I25.2 Old myocardial infarction; E87.6 Hypokalemia; K21.9 Gastro-esophageal reflux disease without esophagitis; E66.01 Morbid (severe) obesity due to excess calories; I11.0 Hypertensive heart disease with heart failure
CPT/HCPCS: 0241U-QW; 36415; 71045-TC-FY; 80048; 80053; 80061; 81003; 82962; 83690; 83735; 83880; 84100; 84439; 84443; 84484; 85025; 85027; 85610; 85730; 86803; 87389; 93005; 93010; 99285-25; J1644

== ENCOUNTER 2024-03-01 12:31 | Observation (INO) | payer OTHER ==
[2024-03-01] MEDS ORDERED: FAMOTIDINE 20 MG/50 ML IVPB 20 MG/50 ML MG IVPB ONE (13:48)
[2024-03-01] MEDS ORDERED: ACETAMINOPHEN INJECTION 100 ML ONE (13:48)
[2024-03-01] MEDS ORDERED: ONDANSETRON 4 MG/2 ML VIAL ONE (13:48)
[2024-03-01 14:17] LABS: BASO % 0.8 % (0-2.0); EOS % 0.6 % (0-4.5); HEMATOCRIT 36.6 % (32.4-45.2); LYMPH % 24.3 % (8-40); MCH 28.9 pg (25.7-33.7); MCHC 32.8 g/dl (32.0-36.0); MEAN CELL VOLUME 88.2 fl (80-96); MEAN PLT VOLUME 7.8 fl (7.5-11.1); NEUT % 67.3 % (42.8-82.8); PLATELET COUNT 348 10^3/uL (134-434); RBC 4.15 M/mm3 (3.60-5.2); RDW 14.9 % (11.6-15.6); WHITE BLOOD COUNT 7.7 K/mm3 (4.0-10.0)
[2024-03-01] MEDS: ACETAMINOPHEN 1000 MG/100 ML BAG IVPB ONE (14:18)
[2024-03-01] MEDS: ONDANSETRON 4 MG/2 ML VIAL IVPUSH ONE (14:18)
[2024-03-01] MEDS: FAMOTIDINE 20 MG/50 ML IVPB 20 MG/50 ML MG IVPB ONE (14:18)
[2024-03-01 14:22] LABS: INR 1.18 (0.83-1.09); PROTHROMBIN TIME (PATIENT) 13.5 SEC (9.7-13.0)
[2024-03-01 14:25] LABS: ACTIVATED PTT 38.5 SECONDS (25.2-36.5)
[2024-03-01 14:44] LABS: POTASSIUM 3.6 mmol/L (3.5-5.1)
[2024-03-01 14:47] LABS: ALBUMIN 3.9 g/dl (3.4-5.0); BLOOD UREA NITROGEN 15.3 mg/dL (7-18)
[2024-03-01 14:52] LABS: BILIRUBIN,TOTAL 0.4 mg/dL (0.2-1)
[2024-03-01] MEDS ORDERED: KETOROLAC TROMETHAMINE 30 MG/1 ML VIAL ONE (17:03)
[2024-03-01] MEDS: KETOROLAC TROMETHAMINE 30 MG/1 ML VIAL IVPUSH ONE (17:15)
[2024-03-01 18:58] LABS: URINE APPEARANCE CLEAR; URINE BILIRUBIN NEGATIVE (NEGATIVE); URINE COLOR YELLOW; URINE GLUCOSE (UA) 2+ (NEGATIVE); URINE KETONE NEGATIVE (NEGATIVE); URINE LEUK ESTERASE NEGATIVE (NEGATIVE); URINE NITRITE NEGATIVE (NEGATIVE); URINE PROTEIN TRACE (NEGATIVE)
[2024-03-01] MEDS ORDERED: ALBUTEROL SO4 HFA INHALER IH PRN (23:10)
[2024-03-01] MEDS ORDERED: PANTOPRAZOLE SODIUM 40 MG VIAL ONE (23:43)
[2024-03-02] MEDS: PANTOPRAZOLE SODIUM 40 MG VIAL IVPUSH SCH (00:32)
[2024-03-02 03:22] LABS: HEMATOCRIT 35.1 % (32.4-45.2); HEMOGLOBIN 11.4 GM/dL (10.7-15.3); MCH 28.8 pg (25.7-33.7); MCHC 32.5 g/dl (32.0-36.0); MEAN CELL VOLUME 88.7 fl (80-96); MEAN PLT VOLUME 7.9 fl (7.5-11.1); PLATELET COUNT 301 10^3/uL (134-434); RBC 3.96 M/mm3 (3.60-5.2); RDW 15.1 % (11.6-15.6); WHITE BLOOD COUNT 7.6 K/mm3 (4.0-10.0)
[2024-03-02 06:00] VITALS: BMI 42.9
[2024-03-02] MEDS: LEVOTHYROXINE 112 MCG, LEVOTHYROXINE 25 MCG PO SCH (06:13)
[2024-03-02] MEDS: GABAPENTIN 300 MG CAPSULE PO SCH (06:13)
[2024-03-02] MEDS: INSULIN ASPART SLIDING SCALE (NOVOLOG) 1 VIAL SQ SCH (06:17)
[2024-03-02 08:49] LABS: HEMATOCRIT 35.6 % (32.4-45.2); HEMOGLOBIN 11.5 GM/dL (10.7-15.3); MCH 28.9 pg (25.7-33.7); MCHC 32.2 g/dl (32.0-36.0); MEAN CELL VOLUME 89.7 fl (80-96); MEAN PLT VOLUME 8.2 fl (7.5-11.1); PLATELET COUNT 303 10^3/uL (134-434); RBC 3.97 M/mm3 (3.60-5.2); RDW 14.8 % (11.6-15.6); WHITE BLOOD COUNT 7.5 K/mm3 (4.0-10.0)
[2024-03-02] MEDS ORDERED: RANOLAZINE E.R. 500 MG TABLET (FP) ONE ×2 (09:01→21:19)
[2024-03-02 09:07] LABS: POTASSIUM 3.4 mmol/L (3.5-5.1)
[2024-03-02 09:12] LABS: ALBUMIN 3.7 g/dl (3.4-5.0); CALCIUM 8.7 mg/dL (8.5-10.1)
[2024-03-02 09:13] LABS: BLOOD UREA NITROGEN 14.7 mg/dL (7-18)
[2024-03-02 09:16] LABS: BILIRUBIN,TOTAL 0.3 mg/dL (0.2-1)
[2024-03-02 09:17] LABS: TOT PROT 6.4 g/dl (6.4-8.2)
[2024-03-02] MEDS: LOSARTAN POTASSIUM 50 MG TABLET PO SCH (09:30)
[2024-03-02] MEDS: ISOSORBIDE MONONITRATE 30 MG TAB.SR.24H (FP) PO SCH (09:30)
[2024-03-02] MEDS: RANOLAZINE E.R. 1,000 MG TABLET (FP) PO SCH (09:31)
[2024-03-02] MEDS: FLUTICASONE/UMECLIDIN/VILANTER(100-62.5-25 TRELEGY ELLIPTA) INAHLER IH SCH (09:40)
[2024-03-02] MEDS: POTASSIUM CHLORIDE ORAL LIQUID 20 MEQ/15 ML PO ONE (13:48)
[2024-03-02] MEDS ORDERED: PNEUMOC 20-VAL CONJ-DIP CRM/PF 0.5 ML SYRINGE IM ONE (14:00)
[2024-03-02] MEDS: ACETAMINOPHEN 1000 MG/100 ML BAG IVPB PRN (14:49)
[2024-03-02] MEDS: ATORVASTATIN CA 80 MG TABLET (FP) PO SCH (21:20)
[2024-03-02] MEDS: MONTELUKAST NA 10 MG TABLET PO SCH (21:20)
[2024-03-02] MEDS: PANTOPRAZOLE 40 MG TABLET PO SCH (21:20)
[2024-03-03 07:50] LABS: BASO % 0.4 % (0-2.0); EOS % 1.4 % (0-4.5); HEMATOCRIT 35.9 % (32.4-45.2); HEMOGLOBIN 11.7 GM/dL (10.7-15.3); LYMPH % 31.5 % (8-40); MCH 28.8 pg (25.7-33.7); MCHC 32.5 g/dl (32.0-36.0); MEAN CELL VOLUME 88.8 fl (80-96); MEAN PLT VOLUME 8.1 fl (7.5-11.1); MONO % 8.3 % (3.8-10.2); NEUT % 58.4 % (42.8-82.8); PLATELET COUNT 307 10^3/uL (134-434); RBC 4.05 M/mm3 (3.60-5.2); RDW 14.8 % (11.6-15.6); WHITE BLOOD COUNT 7.2 K/mm3 (4.0-10.0)
[2024-03-03 08:10] LABS: CHLORIDE 108 mmol/L (98-107); POTASSIUM 3.4 mmol/L (3.5-5.1); SODIUM 143 mmol/L (136-145)
[2024-03-03 08:12] LABS: CALCIUM 8.3 mg/dL (8.5-10.1)
[2024-03-03 08:13] LABS: ALBUMIN 3.4 g/dl (3.4-5.0); ANION GAP 7 mmol/L (4-13); CO2 29 mmol/L (21-32); GLUCOSE,RANDOM 94 mg/dL (74-106)
[2024-03-03 08:15] LABS: SGPT/ALT 19 U/L (13-61)
[2024-03-03 08:16] LABS: BLOOD UREA NITROGEN 8.8 mg/dL (7-18); CREATININE 0.8 mg/dL (0.55-1.3); MAGNESIUM 0.6 mg/dL (1.8-2.4); SGOT/AST 9 U/L (15-37)
[2024-03-03 08:17] LABS: BILIRUBIN,TOTAL 0.4 mg/dL (0.2-1); TOT PROT 6.2 g/dl (6.4-8.2)
[2024-03-03 08:18] LABS: ALK PHOS 91 U/L (45-117)
[2024-03-03 08:19] LABS: PHOSPHOROUS 3.3 mg/dL (2.5-4.9)
[2024-03-03] MEDS: MAGNESIUM SULFATE IN WATER 2 GM/50 ML IVPB IVPB ONE (08:41)
[2024-03-03] MEDS ORDERED: RANOLAZINE E.R. 500 MG TABLET (FP) ONE ×2 (09:09→21:59)
[2024-03-03] MEDS: POTASSIUM CHLORIDE TABS 20 MEQ TABLET.ER (FP) PO SCH (09:16)
[2024-03-03] MEDS: MAGNESIUM 2GM/50ML STERILE WATER IVPB IVPB ONE (14:38)
[2024-03-03] MEDS ORDERED: ACETAMINOPHEN INJECTION 100 ML ONE (16:58)
[2024-03-03] MEDS: ACETAMINOPHEN 1000 MG/100 ML BAG IVPB ONE (17:02)
[2024-03-03 17:17] LABS: POTASSIUM 3.9 mmol/L (3.5-5.1)
[2024-03-03 17:19] LABS: MAGNESIUM 1.6 mg/dL (1.8-2.4)
[2024-03-03 17:52] VITALS: RESP 18
[2024-03-03] MEDS: MAGNESIUM 1GM/D5W - 1 GM/100 ML IVPB IVPB ONE (19:04)
[2024-03-04 09:23] LABS: POTASSIUM 4.6 mmol/L (3.5-5.1)
[2024-03-04 09:24] LABS: CALCIUM 8.7 mg/dL (8.5-10.1)
[2024-03-04 09:25] LABS: BLOOD UREA NITROGEN 9.2 mg/dL (7-18); MAGNESIUM 1.6 mg/dL (1.8-2.4)
[2024-03-04] MEDS ORDERED: RANOLAZINE E.R. 500 MG TABLET (FP) ONE (09:25)
[2024-03-04 09:28] LABS: CREATININE 0.8 mg/dL (0.55-1.3)
[2024-03-04] MEDS: ASPIRIN COATED 81 MG TABLET.EC PO SCH (09:34)
[2024-03-04] MEDS: ACETAMINOPHEN 1000 MG/100 ML BAG IVPB PRN (09:34)
[2024-03-04] MEDS ORDERED: MAGNESIUM HYDROX 2400MG/30ML ORAL SUSPENSION 30 ML CUP PO PRN (10:08)
[2024-03-04] MEDS: MAGNESIUM OXIDE 400 MG TABLET (FP) PO ONE (10:43)
[2024-03-04] MEDS: MAGNESIUM SULFATE IN WATER 2 GM/50 ML IVPB IVPB ONE (10:44)
[2024-03-04 14:49] VITALS: BP 117/76; PULSE 66; TEMP 98.6
== END 2024-03-04 14:30 | disposition home or self-care (01) ==
LOC: JER 12:31 → JERBED 20:57 → J4S 03-02 05:15
PROVIDERS: ADMIT Internal Medicine; ATTEND Internal Medicine
PROC: 3E033NZ Introduction of Analgesics, Hypnotics, Sedatives into Peripheral Vein, Percutaneous Approach (ICD-10-PCS; principal; 2024-03-01)
PROC: 3E033GC Introduction of Other Therapeutic Substance into Peripheral Vein, Percutaneous Approach (ICD-10-PCS; 2024-03-01)
PROC: 3E0333Z Introduction of Anti-inflammatory into Peripheral Vein, Percutaneous Approach (ICD-10-PCS; 2024-03-01)
DX: R11.2 Nausea with vomiting, unspecified (principal); I11.0 Hypertensive heart disease with heart failure; E83.42 Hypomagnesemia; K31.84 Gastroparesis; E11.43 Type 2 diabetes mellitus with diabetic autonomic (poly)neuropathy; R79.89 Other specified abnormal findings of blood chemistry; Z79.84 Long term (current) use of oral hypoglycemic drugs; J45.909 Unspecified asthma, uncomplicated; E03.9 Hypothyroidism, unspecified; K21.9 Gastro-esophageal reflux disease without esophagitis; D64.9 Anemia, unspecified; I25.2 Old myocardial infarction; E66.01 Morbid (severe) obesity due to excess calories; Z95.5 Presence of coronary angioplasty implant and graft; F41.9 Anxiety disorder, unspecified; Z87.891 Personal history of nicotine dependence
CPT/HCPCS: 36415; 71045-TC-FY; 71260-TC; 80048; 80053; 81003; 82962; 83690; 83735; 84100; 84132; 84484; 85025; 85027; 85610; 85730; 86850; 86900; 86901; 87086; 93005; 93010; 96365; 96366; 96367; 96375; 96376; 99285-25; G0378; J0131; Q9967

== ENCOUNTER 2025-02-11 13:48 | Emergency (ER) | payer OTHER ==
[2025-02-11 14:02] VITALS: RESP 18; BMI 41.6
[2025-02-11] MEDS ORDERED: ACETAMINOPHEN INJECTION 100 ML ONE (15:24)
[2025-02-11] MEDS: ACETAMINOPHEN 500 MG TABLET (FP) PO ONE (15:31)
[2025-02-11] MEDS: ACETAMINOPHEN 1000 MG/100 ML BAG IVPB ONE (15:31)
[2025-02-11 15:38] LABS: MCHC 31.8 g/dl (32.2-35.5); MEAN CELL VOLUME 82.5 fl (79.4-94.8); MEAN PLT VOLUME 9.2 fl (9.4-12.3); RDW 17.8 % (12.4-16.6)
[2025-02-11 15:44] LABS: INR 1.38 (0.83-1.09); PROTHROMBIN TIME (PATIENT) 15.0 SEC (9.7-13.0)
[2025-02-11 15:47] LABS: ACTIVATED PTT 38.6 SECONDS (25.2-36.5)
[2025-02-11 15:51] LABS: GLUCOSE,RANDOM 113.0 mg/dL (74-106); TOT PROT 7.3 g/dl (6.4-8.2)
[2025-02-11 15:52] LABS: CO2 27.0 mmol/L (21-32)
[2025-02-11 15:53] LABS: ALK PHOS 113.0 U/L (40-150)
[2025-02-11 15:56] LABS: CREATININE 0.91 mg/dL (0.55-1.3); SGOT/AST 10.0 U/L (5-34); SGPT/ALT 6.0 U/L (0-55)
[2025-02-11 16:17] LABS: HCV DIAGNOSTIC IN-HOUSE W/RFLX NON-REACTIVE (NONREACTIVE); HIV INTERPRETATION NEGATIVE (NEGATIVE)
[2025-02-11 16:19] LABS: ERYTHROCYTE SEDIMENTATION RATE 77 mm/hr (0-30)
[2025-02-11] MEDS ORDERED: KETOROLAC TROMETHAMINE 15 MG/ML VIAL ONE (17:16)
[2025-02-11] MEDS: KETOROLAC TROMETHAMINE 15 MG/ML VIAL IVPUSH ONE (17:23)
[2025-02-11] MEDS ORDERED: AMOX TR/POT CLAV 875MG/125MG TABLETS (FP) ONE (17:46)
[2025-02-11] MEDS: AMOX TR/POT CLAV 875MG/125MG TABLETS (FP) PO ONE (17:47)
[2025-02-11 18:41] VITALS: BP 130/63; PULSE 90; TEMP 98.8
== END 2025-02-11 19:37 | disposition home or self-care (01) ==
LOC: JER 13:48
PROC: 3E033NZ Introduction of Analgesics, Hypnotics, Sedatives into Peripheral Vein, Percutaneous Approach (ICD-10-PCS; principal; 2025-02-11)
PROC: 3E0333Z Introduction of Anti-inflammatory into Peripheral Vein, Percutaneous Approach (ICD-10-PCS; 2025-02-11)
DX: M25.431 Effusion, right wrist (principal); M25.531 Pain in right wrist; M79.641 Pain in right hand
CPT/HCPCS: 36415; 73110-TC-RT-FY; 73130-TC-RT-FY; 76882-TC-LT; 80053; 84550; 85027; 85610; 85651; 85730; 86140; 86803; 86850; 86900; 86901; 87389; 96374; 96375; 99285-25

== ENCOUNTER 2025-02-26 14:19 | Emergency (ER) | payer OTHER ==
[2025-02-26 14:25] VITALS: BP 140/64; PULSE 78; RESP 18; TEMP 98.2; BMI 30.1
[2025-02-26] MEDS ORDERED: predniSONE 20 MG TABLET (UD) ONE (15:37)
[2025-02-26] MEDS: predniSONE 20 MG TABLET (UD) PO ONE (15:41)
== END 2025-02-26 16:14 | disposition home or self-care (01) ==
LOC: JER 14:19
DX: M79.89 Other specified soft tissue disorders (principal); M79.631 Pain in right forearm
CPT/HCPCS: 99283-25